=== PATIENT | female | born 1985 | race Caucasian/White ===

== ENCOUNTER 2016-12-17 05:11 | Inpatient (IN) ==
--- NOTE | 2016-12-17 05:22 | Emergency Department Note ---
Disposition Clinical Impression: Generalized seizure Disposition: Still a Patient Forms: ED Satisfaction Letter General Adult HPI - General Chief complaint: ED Seizure Stated complaint: seizure Time Seen by Provider: 12/17/16 05:17 Nursing Notes Reviewed: Yes Vital Signs Reviewed: Yes - History of Present Illness HPI Narrative: Patient being brought in by EMS for one episode of seizures at home. EMS states that when they got there she was slightly confused however she is mentating appropriately now. Patient is complaining of seizures. She states that she has been getting these daily. She does have a history of this that she sees a neurologist at [facility] for. She takes phenytoin as well as Keppra. She states she has been taking her medication as prescribed. She complains of a productive cough for 1 day as well as a fever while at home today. She is also complaining of right-sided low back pain. - Related Data Home Medications Medication Instructions Recorded Confirmed LevETIRAcetam [Keppra] 500 mg PO 08/04/15 Phenytoin ER [Dilantin] 200 mg PO BID 08/04/15 08/04/15 Previous Rx's Medication Instructions Recorded Cyclobenzaprine [Flexeril] 10 mg PO TID #15 tablet 08/04/15 Ibuprofen [Motrin] 600 mg PO TID PRN #30 tab 08/04/15 LevETIRAcetam [Keppra] 500 mg PO BID #30 tablet 07/27/16 Phenytoin [Dilantin] 200 mg PO Q12HR #60 tab.chew 07/27/16 Nitrofurantoin (BID) [Macrobid] 100 mg PO BID #10 capsule 08/11/16 Allergies Allergy/AdvReac Type Severity Reaction Status Date / Time No Known Allergies Allergy Verified 05/01/15 18:37 All systems ED: reviewed and negative except as stated. Constitutional: Reports: fever, chills ENT ED: Denies: congestion Cardiovascular: Denies: chest pain, palpitations, syncope Respiratory: Reports: cough (One-day), sputum production (Dark in color). Denies: dyspnea, wheezes Gastrointestinal: Denies: abdominal pain, nausea, vomiting, diarrhea, hematemesis, melena, hematochezia Genitourinary: Denies: urgency, dysuria, frequency, hematuria Musculoskeletal: Reports: back pain (right sided lower back pain). Denies: neck pain Integumentary: Denies: rash, abrasion Neurological: Reports: other (seizure). Denies: headache, weakness Past Medical History - Past Medical History Attestation: Yes The following information was validated with the patient. Medical history: Reports: seizures Surgical history: Reports: cholecystectomy, other Psychiatric history: Reports: no psych history - Social History Smoking Status: Former smoker Smokeless Tobacco Status: No Alcohol use: Reports: none Drug use: Reports: none Physical Exam - General Limitations: no limitations General appearance: alert, in no apparent distress - Head Head exam: atraumatic, normocephalic, normal inspection - Eye Eye exam: Present: normal appearance, PERRL, EOMI. Absent: scleral icterus, conjunctival injection - ENT ENT exam: normal exam, normal oropharynx, mucous membranes moist - Neck Neck exam: Present: normal inspection, full ROM, trachea midline. Absent: tenderness, meningismus, lymphadenopathy - Chest Chest inspection: Present: normal inspection, symmetric chest wall rise. Absent : tenderness - Respiratory Respiratory exam: Present: normal lung sounds bilaterally. Absent: respiratory distress, accessory muscle use - Cardiovascular Cardiovascular exam: Present: tachycardia, normal heart sounds - Abdominal Exam Abdominal exam: Present: soft, Non-Tender, normal bowel sounds. Absent: tenderness, distention, guarding, rebound, rigidity, organomegaly - Extremities Exam Extremities exam: Present: normal inspection, full ROM, normal capillary refill. Absent: tenderness, pedal edema - Back Exam Back exam: Present: normal inspection, full ROM, CVA tenderness (R), other. Absent: tenderness, CVA tenderness (L), muscle spasm - Neurological Exam Neurological exam: Present: alert, oriented X3 - Psychiatric Psychiatric exam: Present: normal affect, normal mood - Skin Skin exam: Present: warm, dry, intact, normal color. Absent: rash, cyanosis, diaphoresis Course Course Narrative: Female patient brought in by EMS for seizures. She had a seizure witnessed by people at the house. They state that she was jerking all over. It is approximately 6 minutes long according to the people at the house. EMS state the patient was confused whenever they got there. They states stated that she came around very quickly though. She has not Had any complaints to them. EMS expressed concern about no one in the house knowing her name. They only were aware of her first name. They stated there were several lighters around her whenever she was found. Patient does have a history of seizures. She takes Keppra as well as phenytoin for this. She states she has been having breakthrough seizures daily due to his stressors in her life. She was recently hospitalized for seizures a week ago. She complains of being chilly at this time. She states she has had a cough for today with a dark colored sputum. She states she has also had a fever at home that she took medication for but did not relieve. She is nontoxic-appearing but she is tachycardic. She is febrile while here. Her lung sounds are grossly clear. Heart tones are normal. Abdomen is soft and nontender. She has no Kernig or Brudzinski sign. He has full range of motion of her neck. I do not believe she is midline and she menengisnic. She is nontoxic appearing. We will give patient fluid bolus for her tachycardia and treat her fever while she is here with Tylenol. We will do basic lab workup and get a chest x-ray. She denies a headache at this time. She denies any visual disturbances. She does complain of right-sided low back pain. - Reevaluation(s) Reevaluation #1: Pt boyfriend is at bedside. He is advising that the Pt has been sick for the past 3 days. She agrees with this at this time. She initially stated that she was only sick for 1 day. Pt story seems to be changing. SHe is denying any drug use however she did test positive for cocaine. She states she lives in a house that people frequently or doing drugs. She denies shooting up drugs however I do not believe her story is reliable enough to believe this. The boyfriend at bedside states that he has not seen her physically shoot up drugs but he does not know. Patient does not have meningitic signs. She does have right-sided CVA tenderness as well as a UTI. We will begin antibiotic treatment for the UTI. I am concerned for a possible epidural abscess. I do believe patient will need a lumbar puncture however I do not feel comfortable introducing a needle with a possible abscess currently. We will see patients back with IV contrast and get an MRI. This case will be signed out to Dr. salbador Bull. Time: 06:49 Vital Signs Temperature 103.1 F H 12/17/16 05:13 Pulse Rate 126 06/02/17 05:13 Respiratory Rate 18 12/17/16 05:13 Blood Pressure 102/64 12/17/16 05:13 O2 Sat by Pulse Oximetry 98 12/17/16 05:13 Temperature 99.1 F 12/17/16 06:47 Pulse Rate 108 12/17/16 06:47 Respiratory Rate 20 12/17/16 06:47 Blood Pressure 101/58 12/17/16 06:47 O2 Sat by Pulse Oximetry 98 12/17/16 06:47 Oxygen Delivery Oxygen Delivery Room Air Medical Decision Making - Medical Records Medical records reviewed: Yes I reviewed the patient's medical records. - Lab Data Lab results reviewed: Yes I reviewed the patient's lab results. Result diagrams: 12/17/16 06:07 12/17/16 06:07 Lab Results 12/17/16 12/17/16 12/17/16 Range/Units 06:07 06:07 06:07 WBC 15.9 H (4.3-11.1) K/mcL RBC 3.84 (3.82-4.97) M/mcL Hgb 10.0 L (11.5-15.4) g/dL Hct 30.5 L (35.3-44.9) % MCV 79.4 L (83.0-100.0) fL MCH 26.0 L (28.0-33.3) pg MCHC 32.8 (31.6-35.5) g/dL RDW 17.7 H (11.5-14.5) % Plt Count 285 (140-400) K/mcL MPV 8.5 L (9.4-12.4) fL Seg Neutrophils % 78.0 % Band Neutrophils % 16.0 H (0-4) % Lymphocytes % 4.0 % Monocytes % 2.0 % Neutrophils # 15.0 H (1.6-8.9) K/mcL Lymphocytes # 0.6 (0.6-4.6) K/mcL Monocytes # 0.3 (0.0-1.3) K/mcL Platelet Estimate Normal (Normal) Sodium 137 (136-145) mEq/L Potassium 3.5 (3.5-4.5) mEq/L Chloride 104 (98-109) mEq/L Carbon Dioxide 24 (19-29) mEq/L BUN 13 (7-20) mg/dL Creatinine 0.78 (0.57-1.11) mg/dL Est GFR ( Amer) > 60 (> 60) Est GFR (Non-Af Amer) > 60 (> 60) BUN/Creatinine Ratio 17 (6-26) Glucose 90 (70-99) mg/dL Calculated Osmolality 284 (280-300) Lactic Acid 2.9 H (0.5-2.2) mmol/L Calcium 7.9 L (8.6-10.8) mg/dL Phosphorus 2.6 (2.3-4.7) mg/dL Magnesium 1.2 L (1.6-2.6) mg/dL Total Bilirubin 0.7 (0.2-1.2) mg/dL Direct Bilirubin 0.5 (0.0-0.5) mg/dL Indirect Bilirubin 0.2 (0.0-1.2) mg/dL AST 56 H (5-34) Units/L ALT 49 (0-55) Units/L Alkaline Phosphatase 182 H (38-126) Units/L Serum Total Protein 6.3 (6.0-8.3) g/dL Albumin 2.9 L (3.5-5.0) g/dL Globulin 3.4 (2.4-3.5) g/dL Albumin/Globulin Ratio 0.9 L (1.1-2.2) Urine Color (Yellow) Urine Clarity (Clear) Urine pH (5.0-8.0) pH Units Ur Specific [place] (1.010-1.025) Urine Protein (Neg-Trace) mg/dL Urine Glucose (UA) (Normal) mg/dL Urine Ketones (Negative) mg/dL Urine Blood (Negative) Urine Nitrite (Negative) Urine Bilirubin (Negative) Urine Urobilinogen (Normal) mg/dL Ur Leukocyte Esterase (Negative) Urine Microscopic RBC (0-3) per hpf Urine Microscopic WBC (0-3) per hpf Ur Squamous Epith Cells (None-Few) per lpf Urine Bacteria (None-Few) per hpf Hyaline Casts (None-Few) per lpf Urine Yeast Ur Culture Indicated? (NO) Salicylates < 5.0 L (15-30) mg/dL Urine Opiates Screen (Hdldmf=263) ng/mL Acetaminophen < 1.0 L (10-30) mcg/mL Ur Barbiturates Screen (Mutwfj=248) ng/mL Phenytoin 7.7 L (10-20) mcg/mL Ur Phencyclidine Scrn (Cutoff=25) ng/mL Ur Amphetamines Screen (Ulolxs=0240) ng/mL U Benzodiazepines Scrn (Cswvwp=044) ng/mL Urine Cocaine Screen (Cutoff= 300) ng/mL U Marijuana (THC) Screen (Cutoff = 50) ng/mL Ethyl Alcohol < 10 (0-10) mg/dL 12/17/16 12/17/16 Range/Units 06:13 06:13 WBC (4.3-11.1) K/mcL RBC (3.82-4.97) M/mcL Hgb (11.5-15.4) g/dL Hct (35.3-44.9) % MCV (83.0-100.0) fL MCH (28.0-33.3) pg MCHC (31.6-35.5) g/dL RDW (11.5-14.5) % Plt Count (140-400) K/mcL MPV (9.4-12.4) fL Seg Neutrophils % % Band Neutrophils % (0-4) % Lymphocytes % % Monocytes % % Neutrophils # (1.6-8.9) K/mcL Lymphocytes # (0.6-4.6) K/mcL Monocytes # (0.0-1.3) K/mcL Platelet Estimate (Normal) Sodium (136-145) mEq/L Potassium (3.5-4.5) mEq/L Chloride (98-109) mEq/L Carbon Dioxide (19-29) mEq/L BUN (7-20) mg/dL Creatinine (0.57-1.11) mg/dL Est GFR ( Amer) (> 60) Est GFR (Non-Af Amer) (> 60) BUN/Creatinine Ratio (6-26) Glucose (70-99) mg/dL Calculated Osmolality (280-300) Lactic Acid (0.5-2.2) mmol/L Calcium (8.6-10.8) mg/dL Phosphorus (2.3-4.7) mg/dL Magnesium (1.6-2.6) mg/dL Total Bilirubin (0.2-1.2) mg/dL Direct Bilirubin (0.0-0.5) mg/dL Indirect Bilirubin (0.0-1.2) mg/dL AST (5-34) Units/L ALT (0-55) Units/L Alkaline Phosphatase (38-126) Units/L Serum Total Protein (6.0-8.3) g/dL Albumin (3.5-5.0) g/dL Globulin (2.4-3.5) g/dL Albumin/Globulin Ratio (1.1-2.2) Urine Color Yellow (Yellow) Urine Clarity Turbid A (Clear) Urine pH 6.5 (5.0-8.0) pH Units Ur Specific [place] 1.012 (1.010-1.025) Urine Protein Trace (Neg-Trace) mg/dL Urine Glucose (UA) Normal (Normal) mg/dL Urine Ketones Negative (Negative) mg/dL Urine Blood Negative (Negative) Urine Nitrite Positive A (Negative) Urine Bilirubin Negative (Negative) Urine Urobilinogen Normal (Normal) mg/dL Ur Leukocyte Esterase Moderate H (Negative) Urine Microscopic RBC 0-3 (0-3) per hpf Urine Microscopic WBC 50-100 H (0-3) per hpf Ur Squamous Epith Cells Many H (None-Few) per lpf Urine Bacteria Many H (None-Few) per hpf Hyaline Casts Few (None-Few) per lpf Urine Yeast Test Not Performed Ur Culture Indicated? YES A (NO) Salicylates (15-30) mg/dL Urine Opiates Screen Negative (Wuimkh=313) ng/mL Acetaminophen (10-30) mcg/mL Ur Barbiturates Screen Negative (Hdupdw=630) ng/mL Phenytoin (10-20) mcg/mL Ur Phencyclidine Scrn Negative (Cutoff=25) ng/mL Ur Amphetamines Screen Negative (Ppwwqg=9362) ng/mL U Benzodiazepines Scrn Negative (Udsgkk=026) ng/mL Urine Cocaine Screen Positive H (Cutoff= 300) ng/mL U Marijuana (THC) Screen Negative (Cutoff = 50) ng/mL Ethyl Alcohol (0-10) mg/dL - Radiology Data Radiology results reviewed: Yes I reviewed the patient's radiology results. Chest X-Ray 12/17/16 05:19 IMPRESSION: No acute disease. D/ / Juan R Hanson MD / Juan R Hanson MD Interpreting Provider: Juan R Hanson MD Head CT 12/17/16 05:33 IMPRESSION: No acute intracranial abnormality. D/ / Andrea Salazar MD / Andrea Salazar MD Interpreting Provider: Andrea Salazar MD - EKG Data EKG #1 EKG attestation: Yes I reviewed and interpreted this EKG. EKG results narrative: Sinus tachycardia at a rate of 119. UT interval is 122. QRS duration is 74. QT is 278. QTC is 349. No signs of acute ischemia. No significant changes from previous EKG dated 05/01/2015.
[2016-12-17] MEDS: 0.9 % Sodium Chloride 1,000 ML IVC SCH ×4 (05:28→21:09)
[2016-12-17] MEDS ORDERED: *HR* LORazepam 2 MG/ML VIAL IVP STA (05:37)
[2016-12-17 06:17] LABS: Hematocrit 30.5 % (35.3-44.9); Mean Corpuscular HGB Conc 32.8 g/dL (31.6-35.5); Mean Corpuscular Volume 79.4 fL (83.0-100.0); Mean Platelet Volume 8.5 fL (9.4-12.4); Platelet Count 285 K/mcL (140-400); Red Blood Count 3.84 M/mcL (3.82-4.97); Red Cell Distribution Width 17.7 % (11.5-14.5)
[2016-12-17 06:24] LABS: Bilirubin,Urine Negative (Negative); Blood,Urine Negative (Negative); Clarity,Urine Turbid (Clear); Color,Urine Yellow (Yellow); Glucose,Urine (UA) Normal (Normal); Ketones,Urine Negative (Negative); Leukocyte Esterase,Urine Moderate (Negative); Nitrite,Urine Positive (Negative); PH,Urine 6.5 pH Units (5.0-8.0); Protein,Urine Trace mg/dL (Neg-Trace); Specific Gravity,Urine 1.012 (1.010-1.025); Urobilinogen,Urine Normal (Normal)
[2016-12-17 06:27] LABS: Bacteria,Urine Many per hpf (None-Few); Hyaline Casts,Urine Few per lpf (None-Few); RBC,Urine 0-3 per hpf (0-3); Squamous Epithelial Cell,Urine Many per lpf (None-Few); WBC,Urine 50-100 per hpf (0-3)
[2016-12-17 06:28] LABS: Amphetamine Screen,Urine Negative ng/mL (Cutoff=1000); Barbiturate Screen,Urine Negative ng/mL (Cutoff=200); Benzodiazepines Screen,Urine Negative ng/mL (Cutoff=200); Cannabinoid Screen,Urine Negative ng/mL (Cutoff = 50); Cocaine Screen,Urine Positive ng/mL (Cutoff= 300); Opiate Screen,Urine Negative ng/mL (Cutoff=300); Phencyclidine Screen,Urine Negative ng/mL (Cutoff=25)
[2016-12-17 06:32] LABS: Alanine Aminotransferase 49 Units/L (0-55); Albumin 2.9 g/dL (3.5-5.0); Albumin/Globulin Ratio 0.9 (1.1-2.2); Alkaline Phosphatase 182 Units/L (38-126); Aspartate Amino Transferase 56 Units/L (5-34); BUN/Creatinine Ratio 17 (6-26); Bilirubin,Direct 0.5 mg/dL (0.0-0.5); Bilirubin,Indirect 0.2 mg/dL (0.0-1.2); Bilirubin,Total 0.7 mg/dL (0.2-1.2); Blood Urea Nitrogen 13 mg/dL (7-20); Calcium 7.9 mg/dL (8.6-10.8); Carbon Dioxide 24 mEq/L (19-29); Chloride 104 mEq/L (98-109); Globulin 3.4 g/dL (2.4-3.5); Glucose 90 mg/dL (70-99); Magnesium 1.2 mg/dL (1.6-2.6); Osmolality,Calculated 284 (280-300); Phosphorous 2.6 mg/dL (2.3-4.7); Potassium 3.5 mEq/L (3.5-4.5); Sodium 137 mEq/L (136-145); Total Protein 6.3 g/dL (6.0-8.3); eGFR For African Americans > 60 (> 60); eGFR For Non-African Americans > 60 (> 60)
[2016-12-17 06:34] LABS: Acetaminophen < 1.0 mcg/mL (10-30); Ethanol < 10 mg/dL (0-10); Salicylate < 5.0 mg/dL (15-30)
[2016-12-17 06:39] LABS: Phenytoin (Dilantin) 7.7 mcg/mL (10-20)
[2016-12-17 06:41] LABS: Lymphocytes # 0.6 K/mcL (0.6-4.6); Monocytes # 0.3 K/mcL (0.0-1.3); Platelet Estimate Normal (Normal)
--- NOTE | 2016-12-17 06:48 | Emergency Department Note ---
Disposition Forms: ED Satisfaction Letter General Adult HPI - General Chief complaint: ED Seizure Stated complaint: seizure Time Seen by Provider: 12/17/16 05:17 Source: family, EMS - History of Present Illness Pain Scale: 0 - Related Data Home Medications Medication Instructions Recorded Confirmed LevETIRAcetam [Keppra] 500 mg PO 08/04/15 Phenytoin ER [Dilantin] 200 mg PO BID 08/04/15 08/04/15 Previous Rx's Medication Instructions Recorded Cyclobenzaprine [Flexeril] 10 mg PO TID #15 tablet 08/04/15 Ibuprofen [Motrin] 600 mg PO TID PRN #30 tab 08/04/15 LevETIRAcetam [Keppra] 500 mg PO BID #30 tablet 07/27/16 Phenytoin [Dilantin] 200 mg PO Q12HR #60 tab.chew 07/27/16 Nitrofurantoin (BID) [Macrobid] 100 mg PO BID #10 capsule 08/11/16 Allergies Allergy/AdvReac Type Severity Reaction Status Date / Time No Known Allergies Allergy Verified 05/01/15 18:37 Past Medical History - Past Medical History Medical history: Reports: seizures Surgical history: Reports: cholecystectomy, other Psychiatric history: Reports: no psych history - Social History Smoking Status: Former smoker Smokeless Tobacco Status: No Alcohol use: Reports: none Drug use: Reports: none Physical Exam - General General appearance: alert, in no apparent distress Course Course Narrative: Patient being brought in by EMS for one episode of seizures at home. EMS states that when they got there she was slightly confused however she is mentating appropriately now. Patient is complaining of seizures. She states that she has been getting these daily. She does have a history of this that she sees a neurologist at [facility] for. She takes phenytoin as well as Keppra. She states she has been taking her medication as prescribed. She complains of a productive cough for 1 day as well as a fever while at home today. She is also complaining of right-sided low back pain. Vital Signs Temperature 103.1 F H 12/17/16 05:13 Pulse Rate 126 12/17/16 05:13 Respiratory Rate 18 12/17/16 05:13 Blood Pressure 102/64 12/17/16 05:13 O2 Sat by Pulse Oximetry 98 12/17/16 05:13 Temperature 103.1 F H 12/17/16 05:13 Pulse Rate 104 12/17/16 06:35 Respiratory Rate 14 12/17/16 06:35 Blood Pressure 91/54 12/17/16 06:35 O2 Sat by Pulse Oximetry 97 12/17/16 06:35 Oxygen Delivery Oxygen Delivery Room Air Medical Decision Making - Lab Data Result diagrams: 12/17/16 06:07 12/17/16 06:07 Lab Results 12/17/16 12/17/16 12/17/16 Range/Units 06:07 06:07 06:07 WBC 15.9 H (4.3-11.1) K/mcL RBC 3.84 (3.82-4.97) M/mcL Hgb 10.0 L (11.5-15.4) g/dL Hct 30.5 L (35.3-44.9) % MCV 79.4 L (83.0-100.0) fL MCH 26.0 L (28.0-33.3) pg MCHC 32.8 (31.6-35.5) g/dL RDW 17.7 H (11.5-14.5) % Plt Count 285 (140-400) K/mcL MPV 8.5 L (9.4-12.4) fL Seg Neutrophils % 78.0 % Band Neutrophils % 16.0 H (0-4) % Lymphocytes % 4.0 % Monocytes % 2.0 % Neutrophils # 15.0 H (1.6-8.9) K/mcL Lymphocytes # 0.6 (0.6-4.6) K/mcL Monocytes # 0.3 (0.0-1.3) K/mcL Platelet Estimate Normal (Normal) Sodium 137 (136-145) mEq/L Potassium 3.5 (3.5-4.5) mEq/L Chloride 104 (98-109) mEq/L Carbon Dioxide 24 (19-29) mEq/L BUN 13 (7-20) mg/dL Creatinine 0.78 (0.57-1.11) mg/dL Est GFR ( Amer) > 60 (> 60) Est GFR (Non-Af Amer) > 60 (> 60) BUN/Creatinine Ratio 17 (6-26) Glucose 90 (70-99) mg/dL Calculated Osmolality 284 (280-300) Lactic Acid 2.9 H (0.5-2.2) mmol/L Calcium 7.9 L (8.6-10.8) mg/dL Phosphorus 2.6 (2.3-4.7) mg/dL Magnesium 1.2 L (1.6-2.6) mg/dL Total Bilirubin 0.7 (0.2-1.2) mg/dL Direct Bilirubin 0.5 (0.0-0.5) mg/dL Indirect Bilirubin 0.2 (0.0-1.2) mg/dL AST 56 H (5-34) Units/L ALT 49 (0-55) Units/L Alkaline Phosphatase 182 H (38-126) Units/L Serum Total Protein 6.3 (6.0-8.3) g/dL Albumin 2.9 L (3.5-5.0) g/dL Globulin 3.4 (2.4-3.5) g/dL Albumin/Globulin Ratio 0.9 L (1.1-2.2) Urine Color (Yellow) Urine Clarity (Clear) Urine pH (5.0-8.0) pH Units Ur Specific [place] (1.010-1.025) Urine Protein (Neg-Trace) mg/dL Urine Glucose (UA) (Normal) mg/dL Urine Ketones (Negative) mg/dL Urine Blood (Negative) Urine Nitrite (Negative) Urine Bilirubin (Negative) Urine Urobilinogen (Normal) mg/dL Ur Leukocyte Esterase (Negative) Urine Microscopic RBC (0-3) per hpf Urine Microscopic WBC (0-3) per hpf Ur Squamous Epith Cells (None-Few) per lpf Urine Bacteria (None-Few) per hpf Hyaline Casts (None-Few) per lpf Urine Yeast Ur Culture Indicated? (NO) Salicylates < 5.0 L (15-30) mg/dL Urine Opiates Screen (Jzsxgc=423) ng/mL Acetaminophen < 1.0 L (10-30) mcg/mL Ur Barbiturates Screen (Unkowj=894) ng/mL Phenytoin 7.7 L (10-20) mcg/mL Ur Phencyclidine Scrn (Cutoff=25) ng/mL Ur Amphetamines Screen (Gxblcv=9351) ng/mL U Benzodiazepines Scrn (Yzuith=042) ng/mL Urine Cocaine Screen (Cutoff= 300) ng/mL U Marijuana (THC) Screen (Cutoff = 50) ng/mL Ethyl Alcohol < 10 (0-10) mg/dL 12/17/16 12/17/16 Range/Units 06:13 06:13 WBC (4.3-11.1) K/mcL RBC (3.82-4.97) M/mcL Hgb (11.5-15.4) g/dL Hct (35.3-44.9) % MCV (83.0-100.0) fL MCH (28.0-33.3) pg MCHC (31.6-35.5) g/dL RDW (11.5-14.5) % Plt Count (140-400) K/mcL MPV (9.4-12.4) fL Seg Neutrophils % % Band Neutrophils % (0-4) % Lymphocytes % % Monocytes % % Neutrophils # (1.6-8.9) K/mcL Lymphocytes # (0.6-4.6) K/mcL Monocytes # (0.0-1.3) K/mcL Platelet Estimate (Normal) Sodium (136-145) mEq/L Potassium (3.5-4.5) mEq/L Chloride (98-109) mEq/L Carbon Dioxide (19-29) mEq/L BUN (7-20) mg/dL Creatinine (0.57-1.11) mg/dL Est GFR ( Amer) (> 60) Est GFR (Non-Af Amer) (> 60) BUN/Creatinine Ratio (6-26) Glucose (70-99) mg/dL Calculated Osmolality (280-300) Lactic Acid (0.5-2.2) mmol/L Calcium (8.6-10.8) mg/dL Phosphorus (2.3-4.7) mg/dL Magnesium (1.6-2.6) mg/dL Total Bilirubin (0.2-1.2) mg/dL Direct Bilirubin (0.0-0.5) mg/dL Indirect Bilirubin (0.0-1.2) mg/dL AST (5-34) Units/L ALT (0-55) Units/L Alkaline Phosphatase (38-126) Units/L Serum Total Protein (6.0-8.3) g/dL Albumin (3.5-5.0) g/dL Globulin (2.4-3.5) g/dL Albumin/Globulin Ratio (1.1-2.2) Urine Color Yellow (Yellow) Urine Clarity Turbid A (Clear) Urine pH 6.5 (5.0-8.0) pH Units Ur Specific [place] 1.012 (1.010-1.025) Urine Protein Trace (Neg-Trace) mg/dL Urine Glucose (UA) Normal (Normal) mg/dL Urine Ketones Negative (Negative) mg/dL Urine Blood Negative (Negative) Urine Nitrite Positive A (Negative) Urine Bilirubin Negative (Negative) Urine Urobilinogen Normal (Normal) mg/dL Ur Leukocyte Esterase Moderate H (Negative) Urine Microscopic RBC 0-3 (0-3) per hpf Urine Microscopic WBC 50-100 H (0-3) per hpf Ur Squamous Epith Cells Many H (None-Few) per lpf Urine Bacteria Many H (None-Few) per hpf Hyaline Casts Few (None-Few) per lpf Urine Yeast Test Not Performed Ur Culture Indicated? YES A (NO) Salicylates (15-30) mg/dL Urine Opiates Screen Negative (Ftydho=332) ng/mL Acetaminophen (10-30) mcg/mL Ur Barbiturates Screen Negative (Qgnfez=561) ng/mL Phenytoin (10-20) mcg/mL Ur Phencyclidine Scrn Negative (Cutoff=25) ng/mL Ur Amphetamines Screen Negative (Coahuv=7598) ng/mL U Benzodiazepines Scrn Negative (Mcdkdc=890) ng/mL Urine Cocaine Screen Positive H (Cutoff= 300) ng/mL U Marijuana (THC) Screen Negative (Cutoff = 50) ng/mL Ethyl Alcohol (0-10) mg/dL
--- NOTE | 2016-12-17 06:52 | Emergency Department Note ---
START Narrative - START START: I examined this patient and my medical decision-making was reviewed with the Resident Physician. I agree with the documented findings, disposition and treatment plan as described except to the extent set forth below. Patient with frequent breakthrough seizures who had a seizure this morning. Arrives febrile, tachycardic. Complains of headache that she has had for the last few days, and pain in the center of her neck. Denies vomiting. Neck is supple without meningismus, but she does complain of some pain in the center of her neck with neck flexion. No focal neurologic deficit. Pupils are normal. The patient denies any drug use to me, denies IV drug use or cocaine use. When confronted with the positive cocaine result on her urine drug screen, continues to deny any cocaine use. She is an unreliable historian. Her urine is infected and she has right CVA tenderness, pyelonephritis certainly could explain her picture of sepsis. However, it would not explain her headache, neck pain or midline back pain that she is complaining of. I cannot trust her history of no IV drug use. She has no distal neurologic symptoms, but before I consider lumbar puncture, an epidural abscess would need to be ruled out. MRI is being ordered. 2 g of IV Rocephin has been ordered. Patient will be checked out to Drs. Bull and Víctor at change of shift.
[2016-12-17] MEDS ORDERED: 0.9 % Sodium Chloride 1,000 ML ONE (08:04)
[2016-12-17] MEDS ORDERED: 0.9 % Sodium Chloride 1,000 ML IVC ONE ×3 (08:24→16:01)
[2016-12-17] MEDS ORDERED: Phenytoin 500 MG in SYRINGE 1 EACH IVPB ONE (08:55)
--- NOTE | 2016-12-17 09:21 | Emergency Department Note ---
START Narrative - START START: I examined this patient and my medical decision-making was reviewed with the ENGRAVER BLOCK/PA/Advanced Practice Nurse/Resident Physician. I agree with the documented findings, disposition and treatment plan as described except to the extent set forth below. Patient emergency department after a seizure. Signed out pending MRIs. MRI unable to perform until they received the information [place] on her vagal nerve stimulator. Patient with significant UTI and likely has pyelonephritis. Her blood pressure is now low. Patient likely with UTI/sepsis. We will start him on pressors. We will admit pending MRI. Unable to locate information regarding her vagal nerve stimulator. Patient had a CT of the spine with IV contrast which shows no obvious abscesses. I believe her symptoms are from pyelonephritis with sepsis. She is admitted to ICU. 30 minutes of critical care exclusive of separately billable procedures.
[2016-12-17] MEDS ORDERED: Norepinephrine 4 MG in D5% in Water 250 ML IVC SCH (09:30)
--- NOTE | 2016-12-17 10:28 | Emergency Department Note ---
Disposition Clinical Impression: Generalized seizure Urinary tract infection Qualifiers: Urinary tract infection type: site unspecified Hematuria presence: with hematuria Qualified Code(s): N39.0 - Urinary tract infection, site not specified ; R31.9 - Hematuria, unspecified Sepsis Qualifiers: Sepsis type: sepsis due to unspecified organism Qualified Code(s): A41.9 - Sepsis, unspecified organism Disposition: Admitted As Inpatient Condition: Serious General Adult HPI - General Chief complaint: ED Seizure Stated complaint: seizure Time Seen by Provider: 12/17/16 05:17 Source: family, EMS Limitations: no limitations - History of Present Illness Pain Scale: 0 - Related Data Home Medications Medication Instructions Recorded Confirmed Phenytoin ER [Dilantin] 300 mg PO BID 08/04/15 12/17/16 Buprenorphine HCl/Naloxone HCl 2 tab SL DAILY 12/17/16 12/17/16 [Buprenorphin-Naloxon 8-2 mg Sl] clonazePAM [Klonopin] 2 mg PO BID PRN 12/17/16 12/17/16 Previous Rx's Medication Instructions Recorded LevETIRAcetam [Keppra] 500 mg PO BID #30 tablet 07/27/16 Allergies Allergy/AdvReac Type Severity Reaction Status Date / Time No Known Allergies Allergy Verified 05/01/15 18:37 Constitutional: Reports: fever, chills ENT ED: Denies: congestion Cardiovascular: Denies: chest pain, palpitations, syncope Respiratory: Reports: cough (One-day), sputum production (Dark in color). Denies: dyspnea, wheezes Gastrointestinal: Denies: abdominal pain, nausea, vomiting, diarrhea, hematemesis, melena, hematochezia Genitourinary: Denies: urgency, dysuria, frequency, hematuria Musculoskeletal: Reports: back pain (right sided lower back pain). Denies: neck pain Integumentary: Denies: rash, abrasion Neurological: Reports: other (seizure). Denies: headache, weakness Past Medical History - Past Medical History Medical history: Reports: seizures Surgical history: Reports: cholecystectomy, other Psychiatric history: Reports: no psych history - Social History Smoking Status: Former smoker Smokeless Tobacco Status: No Alcohol use: Reports: none Drug use: Reports: none Physical Exam General appearance: NAD, conversant Eyes: anicteric sclerae, moist conjunctivae; PERRL HENT: Atraumatic; oropharynx clear with moist mucous membranes and no mucosal ulcerations Neck: Normal inspection; Trachea midline; FROM, supple Lungs: CTA, with normal respiratory effort and no intercostal retractions CV: RRR, no MRGs Abdomen: Soft, non-tender; no rebound or gaurding Extremities: No peripheral edema or extremity lymphadenopathy Skin: Normal temperature; no rash, ulcers or lesions Psych: Appropriate mood and affect Neuro: alert and oriented to person, place and time; answering all questions appropriately. Moving neck without difficulty. Looks behind her to see monitor and blood pressure without difficulty. Moves all extremities without difficulty or deficit. - General Limitations: no limitations General appearance: alert, in no apparent distress Course - Reevaluation(s) Reevaluation #1: Patient taken over from signout from Dr. Capellan. Patient's received 2 L of fluid with light pressure systolically of 85 and a map of low 60s. Patient will receive continued fluids as well as continued workup in regards to possible polynephritis and epidural abscess. Blood cultures are pending and ceftriaxone 2 g has already been administered. The patient received her fourth liter with continued low systolic pressures including blood pressures with a systolic of 60 and maps of 42. The patient refused central line in the internal jugular vein. Patient agrees to central line in the right femoral vein. Line placed per procedure note without difficulty or complication. 16 cm secondary to initial set up for IJ. Levothyroid will be started. We will continue fluids. We will continue to monitor urine output and overall perfusion status. CT of the abdomen does not show any overt pyelonephritis. Patient's previous urine cultures sensitive to ceftriaxone. We will discuss the ICU team for further care. - Consultations Consultation #1: Discussed with Dr. Browning. Due to the initial concern and ordering of MRI to rule out abscess and infection the patient should undergo further imaging prior to admission to the ICU secondary to this possibly require her to be transferred. Multiple attempts were tried to get information regarding for her stimulator. [facility] has no information regarding the actual type of stimulator. It was not placed at their facility. Patient has no recollection of other hospital but this was placed. Family members are also helpful in regards to this information. In discussion with ICU exhaust emissions inspector patient underwent CT scan of the cervical thoracic and lumbar spine to further evaluate for infection. CTs negative for abscess, osteomyelitis, discitis. Patient was officially accepted to the ICU for further management. During her stay and sorting through the MRIs and CT scan. The patient was treated with vancomycin and ceftriaxone empirically. The patient has continued to improve throughout her stay in the emergency department. Her mean arterial pressure remains in the mid 60s on 2 mics of levofed. Patient remained stable with increasing urine output. Patient will be transferred to the ICU for further monitoring as well as treatment and follow-up of cultures. Vital Signs Temperature 103.1 F H 12/17/16 05:13 Pulse Rate 126 12/17/16 05:13 Respiratory Rate 18 12/17/16 05:13 Blood Pressure 102/64 12/17/16 05:13 O2 Sat by Pulse Oximetry 98 12/17/16 05:13 Temperature 99.6 F 12/17/16 13:45 Pulse Rate 80 12/17/16 14:06 Respiratory Rate 18 12/17/16 13:45 Blood Pressure 92/51 12/17/16 13:45 O2 Sat by Pulse Oximetry 97 12/17/16 14:06 Oxygen Delivery Oxygen Delivery Room Air Procedures - Central Line Placement Right Femoral Central Line Inserted*: Yes Central Line Catheter Replacement*: Yes Central Line Insertion: emergent Consent Obtained: verbal consent Procedural Pause: verify patient name and date of , timeout performed per policy, britany and assess the site, assemble equipment and verify supplies, perform hand hygiene During the Procedure: clinician is wearing sterile gloves, cap, mask,& gown during insertion, sterile field and sterile technique are maintained, patient's face is covered with drape or mask and wearing a cap, everyone in room is wearing a mask Prep the Procedure Site: apply chloraprep to the skin using a back and forth scrubbing motion, apply chloraprep for 30 seconds (upper body), 1-2 min ( femoral sites), allow prep to dry, drape the patient with a full body drape Local Anesthetic: lidocaine 1% Amount of anesthesia used (mL): 3 Ultrasound Used for Placement: Yes Central Line Lumen Inserted: triple (16cm) Post Procedure: sutured in place, good blood return, all ports aspirated, flushed, capped, sterile dressing applied, guide wire removed and visualized, dressing is dated Post Procedure X-Ray: tip of catheter in good position Patient Tolerated Procedure: well, no complications Medical Decision Making - Lab Data Result diagrams: 12/17/16 06:07 12/17/16 06:07 Lab Results 12/17/16 12/17/16 12/17/16 Range/Units 06:07 06:07 06:07 WBC 15.9 H (4.3-11.1) K/mcL RBC 3.84 (3.82-4.97) M/mcL Hgb 10.0 L (11.5-15.4) g/dL Hct 30.5 L (35.3-44.9) % MCV 79.4 L (83.0-100.0) fL MCH 26.0 L (28.0-33.3) pg MCHC 32.8 (31.6-35.5) g/dL RDW 17.7 H (11.5-14.5) % Plt Count 285 (140-400) K/mcL MPV 8.5 L (9.4-12.4) fL Seg Neutrophils % 78.0 % Band Neutrophils % 16.0 H (0-4) % Lymphocytes % 4.0 % Monocytes % 2.0 % Neutrophils # 15.0 H (1.6-8.9) K/mcL Lymphocytes # 0.6 (0.6-4.6) K/mcL Monocytes # 0.3 (0.0-1.3) K/mcL Platelet Estimate Normal (Normal) Sodium 137 (136-145) mEq/L Potassium 3.5 (3.5-4.5) mEq/L Chloride 104 (98-109) mEq/L Carbon Dioxide 24 (19-29) mEq/L BUN 13 (7-20) mg/dL Creatinine 0.78 (0.57-1.11) mg/dL Est GFR ( Amer) > 60 (> 60) Est GFR (Non-Af Amer) > 60 (> 60) BUN/Creatinine Ratio 17 (6-26) Glucose 90 (70-99) mg/dL POC Glucose (58-89) Calculated Osmolality 284 (280-300) Lactic Acid 2.9 H (0.5-2.2) mmol/L Calcium 7.9 L (8.6-10.8) mg/dL Phosphorus 2.6 (2.3-4.7) mg/dL Magnesium 1.2 L (1.6-2.6) mg/dL Total Bilirubin 0.7 (0.2-1.2) mg/dL Direct Bilirubin 0.5 (0.0-0.5) mg/dL Indirect Bilirubin 0.2 (0.0-1.2) mg/dL AST 56 H (5-34) Units/L ALT 49 (0-55) Units/L Alkaline Phosphatase 182 H (38-126) Units/L Serum Total Protein 6.3 (6.0-8.3) g/dL Albumin 2.9 L (3.5-5.0) g/dL Globulin 3.4 (2.4-3.5) g/dL Albumin/Globulin Ratio 0.9 L (1.1-2.2) Urine Color (Yellow) Urine Clarity (Clear) Urine pH (5.0-8.0) pH Units Ur Specific [place] (1.010-1.025) Urine Protein (Neg-Trace) mg/dL Urine Glucose (UA) (Normal) mg/dL Urine Ketones (Negative) mg/dL Urine Blood (Negative) Urine Nitrite (Negative) Urine Bilirubin (Negative) Urine Urobilinogen (Normal) mg/dL Ur Leukocyte Esterase (Negative) Urine Microscopic RBC (0-3) per hpf Urine Microscopic WBC (0-3) per hpf Ur Squamous Epith Cells (None-Few) per lpf Urine Bacteria (None-Few) per hpf Hyaline Casts (None-Few) per lpf Urine Yeast Ur Culture Indicated? (NO) Salicylates < 5.0 L (15-30) mg/dL Urine Opiates Screen (Utydjj=499) ng/mL Acetaminophen < 1.0 L (10-30) mcg/mL Ur Barbiturates Screen (Dgduci=631) ng/mL Phenytoin 7.7 L (10-20) mcg/mL Ur Phencyclidine Scrn (Cutoff=25) ng/mL Ur Amphetamines Screen (Rjmmvj=1846) ng/mL U Benzodiazepines Scrn (Wvlxtc=158) ng/mL Urine Cocaine Screen (Cutoff= 300) ng/mL U Marijuana (THC) Screen (Cutoff = 50) ng/mL Ethyl Alcohol < 10 (0-10) mg/dL 12/17/16 12/17/16 12/17/16 Range/Units 06:13 06:13 07:04 WBC (4.3-11.1) K/mcL RBC (3.82-4.97) M/mcL Hgb (11.5-15.4) g/dL Hct (35.3-44.9) % MCV (83.0-100.0) fL MCH (28.0-33.3) pg MCHC (31.6-35.5) g/dL RDW (11.5-14.5) % Plt Count (140-400) K/mcL MPV (9.4-12.4) fL Seg Neutrophils % % Band Neutrophils % (0-4) % Lymphocytes % % Monocytes % % Neutrophils # (1.6-8.9) K/mcL Lymphocytes # (0.6-4.6) K/mcL Monocytes # (0.0-1.3) K/mcL Platelet Estimate (Normal) Sodium (136-145) mEq/L Potassium (3.5-4.5) mEq/L Chloride (98-109) mEq/L Carbon Dioxide (19-29) mEq/L BUN (7-20) mg/dL Creatinine (0.57-1.11) mg/dL Est GFR ( Amer) (> 60) Est GFR (Non-Af Amer) (> 60) BUN/Creatinine Ratio (6-26) Glucose (70-99) mg/dL POC Glucose (58-89) Calculated Osmolality (280-300) Lactic Acid 1.4 (0.5-2.2) mmol/L Calcium (8.6-10.8) mg/dL Phosphorus (2.3-4.7) mg/dL Magnesium (1.6-2.6) mg/dL Total Bilirubin (0.2-1.2) mg/dL Direct Bilirubin (0.0-0.5) mg/dL Indirect Bilirubin (0.0-1.2) mg/dL AST (5-34) Units/L ALT (0-55) Units/L Alkaline Phosphatase (38-126) Units/L Serum Total Protein (6.0-8.3) g/dL Albumin (3.5-5.0) g/dL Globulin (2.4-3.5) g/dL Albumin/Globulin Ratio (1.1-2.2) Urine Color Yellow (Yellow) Urine Clarity Turbid A (Clear) Urine pH 6.5 (5.0-8.0) pH Units Ur Specific [place] 1.012 (1.010-1.025) Urine Protein Trace (Neg-Trace) mg/dL Urine Glucose (UA) Normal (Normal) mg/dL Urine Ketones Negative (Negative) mg/dL Urine Blood Negative (Negative) Urine Nitrite Positive A (Negative) Urine Bilirubin Negative (Negative) Urine Urobilinogen Normal (Normal) mg/dL Ur Leukocyte Esterase Moderate H (Negative) Urine Microscopic RBC 0-3 (0-3) per hpf Urine Microscopic WBC 50-100 H (0-3) per hpf Ur Squamous Epith Cells Many H (None-Few) per lpf Urine Bacteria Many H (None-Few) per hpf Hyaline Casts Few (None-Few) per lpf Urine Yeast Test Not Performed Ur Culture Indicated? YES A (NO) Salicylates (15-30) mg/dL Urine Opiates Screen Negative (Nwilht=927) ng/mL Acetaminophen (10-30) mcg/mL Ur Barbiturates Screen Negative (Iyaivw=906) ng/mL Phenytoin (10-20) mcg/mL Ur Phencyclidine Scrn Negative (Cutoff=25) ng/mL Ur Amphetamines Screen Negative (Oyuumj=3456) ng/mL U Benzodiazepines Scrn Negative (Lewvxv=611) ng/mL Urine Cocaine Screen Positive H (Cutoff= 300) ng/mL U Marijuana (THC) Screen Negative (Cutoff = 50) ng/mL Ethyl Alcohol (0-10) mg/dL 12/17/16 Range/Units 14:01 WBC (4.3-11.1) K/mcL RBC (3.82-4.97) M/mcL Hgb (11.5-15.4) g/dL Hct (35.3-44.9) % MCV (83.0-100.0) fL MCH (28.0-33.3) pg MCHC (31.6-35.5) g/dL RDW (11.5-14.5) % Plt Count (140-400) K/mcL MPV (9.4-12.4) fL Seg Neutrophils % % Band Neutrophils % (0-4) % Lymphocytes % % Monocytes % % Neutrophils # (1.6-8.9) K/mcL Lymphocytes # (0.6-4.6) K/mcL Monocytes # (0.0-1.3) K/mcL Platelet Estimate (Normal) Sodium (136-145) mEq/L Potassium (3.5-4.5) mEq/L Chloride (98-109) mEq/L Carbon Dioxide (19-29) mEq/L BUN (7-20) mg/dL Creatinine (0.57-1.11) mg/dL Est GFR ( Amer) (> 60) Est GFR (Non-Af Amer) (> 60) BUN/Creatinine Ratio (6-26) Glucose (70-99) mg/dL POC Glucose 125 H (58-89) Calculated Osmolality (280-300) Lactic Acid (0.5-2.2) mmol/L Calcium (8.6-10.8) mg/dL Phosphorus (2.3-4.7) mg/dL Magnesium (1.6-2.6) mg/dL Total Bilirubin (0.2-1.2) mg/dL Direct Bilirubin (0.0-0.5) mg/dL Indirect Bilirubin (0.0-1.2) mg/dL AST (5-34) Units/L ALT (0-55) Units/L Alkaline Phosphatase (38-126) Units/L Serum Total Protein (6.0-8.3) g/dL Albumin (3.5-5.0) g/dL Globulin (2.4-3.5) g/dL Albumin/Globulin Ratio (1.1-2.2) Urine Color (Yellow) Urine Clarity (Clear) Urine pH (5.0-8.0) pH Units Ur Specific [place] (1.010-1.025) Urine Protein (Neg-Trace) mg/dL Urine Glucose (UA) (Normal) mg/dL Urine Ketones (Negative) mg/dL Urine Blood (Negative) Urine Nitrite (Negative) Urine Bilirubin (Negative) Urine Urobilinogen (Normal) mg/dL Ur Leukocyte Esterase (Negative) Urine Microscopic RBC (0-3) per hpf Urine Microscopic WBC (0-3) per hpf Ur Squamous Epith Cells (None-Few) per lpf Urine Bacteria (None-Few) per hpf Hyaline Casts (None-Few) per lpf Urine Yeast Ur Culture Indicated? (NO) Salicylates (15-30) mg/dL Urine Opiates Screen (Hrodbf=224) ng/mL Acetaminophen (10-30) mcg/mL Ur Barbiturates Screen (Gqyipj=007) ng/mL Phenytoin (10-20) mcg/mL Ur Phencyclidine Scrn (Cutoff=25) ng/mL Ur Amphetamines Screen (Wvncmu=6211) ng/mL U Benzodiazepines Scrn (Igeqgi=262) ng/mL Urine Cocaine Screen (Cutoff= 300) ng/mL U Marijuana (THC) Screen (Cutoff = 50) ng/mL Ethyl Alcohol (0-10) mg/dL
[2016-12-17] MEDS ORDERED: Vancomycin 1,000 MG in D5% in Water 250 ML IVPB ONE (11:58)
--- NOTE | 2016-12-17 13:51 | Pulmonology History & Physical ---
<RudiKenyatta mccarthy - Last Filed: 12/17/16 16:03> Date of Encounter: 12/17/16 Time of Encounter: 13:40 Assessment and Plan (1) Septic shock Current visit: Yes Status: Acute At emergency department, patient had temperature of 103.1, heart rate 126, blood pressure 85/52, WBC 15.9. Initial lactic acid was 2.9. Repeat value was 1.4. source of infection likely secondary to UTI in setting of bilateral hydroureter. Patient has had multiple UTIs in the past, according to records. Chest x-ray unremarkable head CT showed no acute abnormality CT A/P showed bladder distention with mild bilateral Hydroureter without hydronephrosis. No stones visualized. CT of the cervical spine showed no acute abnormality. Lumbar spine CT showed no signs of abscess, osteomyelitis, or diskitis. There was a small right foraminal disc protrusion at L5 S1 without nerve root compromise. Thoracic spine CT unremarkable. In ED, there was concern of spinal abscess in setting of new back pain and possible history of IVDU (patient denies hx), MRI was ordered but could not be done due to patient's vagal stimulator. Plan: appreciate urology recommendations Titrate levophed to maintain MAP around 60 and wean off as tolerated ceftriaxone 1 g daily monitor urine output barclay to gravity patient will receive 5th L fluid bolus with maintenance fluids will repeat lactic acid tomorrow morning (2) Urinary tract infection Current visit: Yes Status: Acute plan as above. Qualifiers: Urinary tract infection type: site unspecified Hematuria presence: without hematuria Qualified Code(s): N39.0 - Urinary tract infection, site not specified (3) Generalized seizure Current visit: Yes Status: Acute likely secondary to stress and cocaine use. continue home medications. (4) Anxiety Current visit: Yes Status: Acute patient states she takes klonopin at home for anxiety. will continue in order to avoid withdraw seizures. will continue her home suboxone. patient denies hx of recreational drugs and IV drugs, including cocaine. however, UDS was positive for cocaine. (5) DVT prophylaxis Current visit: Yes Status: Acute heparin SQ History of Present Illness Chief complaint: seizures HPI: Ms. Sullivan is a 31 year old female with past medical history of anxiety, seizures. Patient was brought to emergency department via EMS because of seizure activity. Per EMS, after arrival to her home, she was slightly confused but was meditating well. Patient does have a history of seizures and sees neurologist Dr. Bill at [facility], and states that she follows up with him regularly. She states that her seizures began when she was 4 years old and that her mother and her 2 eldest children have seizures as well. Home medications include phenytoin and Keppra. Patient reports that she has been taking her seizure medications as prescribed and never misses a dose. Recently her seizures started about 3 to 4 days ago. At that time, she states she had about 3 seizures and arrow. She also reports she had seizure yesterday and seizure today prior to arrival to the emergency department. Patient's fianc was at bedside during interview. Patient racheal states that when she has the seizures , her body starts shaking vigorously and she makes incomprehensible noises. He also states that her last seizure prior to arrival to the emergency department lasted about 5 to 7 minutes. ROS: patient admits to having nausea states she had vomiting all day yesterday, she reports fever of 103 at home and in the emergency department. She admits to having chills. She denies cough, hematuria, blood in her stool. She admits to being very fatigued. She denies having any tongue biting and denies loss of bowel or bladder function during her seizure episodes. She denies any recent, sick contacts. She denies diarrhea. She does report having a headache and low back pain that started about 2 days ago. social hx: smokes 2-3 cigarettes per day since age 9. she occasionally drinks. she denies use of cocaine, marijuana, and denies history of IV drug use. SHe lives with her fiance and his aunt. SHe has four children, but they are currently with her mother. SHe states "my children live with my mother while I get myself together." She states she is anxious and has been under a lot of stress recently. SHe recently was evicted from her apartment due to not being able to pay rent, and has been anxious ever since her sister was murdered about two years ago. she feels safe at home and denies being physically or emotionally abused by anyone. family Hx: mother has lung cancer, history of seizures, is smoker. father is alive and has "heart problems." She has one living older brother and one living sister who are healthy. her oldest two children have seizures. Past Med Surg Social Fam HX - Past Medical History Medical history: seizures Psychiatric history: no psych history - Past Surgical History Surgical History: cholecystectomy, other - Social History Smoking Status: Former smoker Smokeless Tobacco Status: No Alcohol use: none Drug use: none - Family History Mother Age: 56 Living Status: Still Living Hx Family Respiratory Disorders: Yes (Lung CA) Hx Family Neurologic Disorders: Yes (SEIZURES) Father Age: 67 Hx Family Cardiac Disorders: Yes Medications and Allergies Phenytoin ER [Dilantin] 300 mg PO BID 08/04/15 [History] LevETIRAcetam [Keppra] 500 mg PO BID #30 tablet 07/27/16 [Rx] Buprenorphine HCl/Naloxone HCl [Buprenorphin-Naloxon 8-2 mg Sl] 2 tab SL DAILY 12/17/16 [History] clonazePAM [Klonopin] 2 mg PO BID PRN 12/17/16 [History] Allergies No Known Allergies Allergy (Verified 05/01/15 18:37) All Systems: A 10-system review of systems was performed and is negative for pertinent findings except as documented above in the HPI. Physical Examination General appearance: no acute distress, alert, lethargic Eyes: nonicteric ENT: oropharynx moist Neck: supple, no lymphadenopathy Effort: normal Auscultation: bilateral: clear Cardiovascular: regular rate and rhythm Gastrointestinal: normoactive bowel sounds, soft, non-tender, non-distended Integumentary: normal Extremities: no cyanosis, no edema, no clubbing Musculoskeletal: no deformities normal mental status, non-focal exam mood appropriate, anxious Results - Laboratory Findings CBC and BMP: 12/17/16 14:45 12/17/16 14:45 Abnormal lab findings: Abnormal lab results WBC 15.9 K/mcL (4.3-11.1) H 12/17/16 06:07 Hgb 10.0 g/dL (11.5-15.4) L 12/17/16 06:07 Hct 30.5 % (35.3-44.9) L 12/17/16 06:07 MCV 79.4 fL (83.0-100.0) L 12/17/16 06:07 MCH 26.0 pg (28.0-33.3) L 12/17/16 06:07 RDW 17.7 % (11.5-14.5) H 12/17/16 06:07 MPV 8.5 fL (9.4-12.4) L 12/17/16 06:07 Band Neutrophils % 16.0 % (0-4) H 12/17/16 06:07 Neutrophils # 15.0 K/mcL (1.6-8.9) H 12/17/16 06:07 Calcium 7.9 mg/dL (8.6-10.8) L 12/17/16 06:07 Magnesium 1.2 mg/dL (1.6-2.6) L 12/17/16 06:07 AST 56 Units/L (5-34) H 12/17/16 06:07 Alkaline Phosphatase 182 Units/L (38-126) H 12/17/16 06:07 Albumin 2.9 g/dL (3.5-5.0) L 12/17/16 06:07 Albumin/Globulin Ratio 0.9 (1.1-2.2) L 12/17/16 06:07 Urine Clarity Turbid (Clear) A 12/17/16 06:13 Urine Nitrite Positive (Negative) A 12/17/16 06:13 Ur Leukocyte Esterase Moderate (Negative) H 12/17/16 06:13 Urine Microscopic WBC 50-100 per hpf (0-3) H 12/17/16 06:13 Ur Squamous Epith Cells Many per lpf (None-Few) H 12/17/16 06:13 Urine Bacteria Many per hpf (None-Few) H 12/17/16 06:13 Ur Culture Indicated? YES (NO) A 12/17/16 06:13 Salicylates < 5.0 mg/dL (15-30) L 12/17/16 06:07 Acetaminophen < 1.0 mcg/mL (10-30) L 12/17/16 06:07 Phenytoin 7.7 mcg/mL (10-20) L 12/17/16 06:07 Urine Cocaine Screen Positive ng/mL (Cutoff= 300) H 12/17/16 06:13 <Vasyl Willett - Last Filed: 12/17/16 17:25> Date of Encounter: 12/17/16 History of Present Illness HPI: Ms. Sullivan is a 31 year old female All Systems: A 10-system review of systems was performed and is negative for pertinent findings except as documented above in the HPI. Physical Examination Vital Signs: Vital Signs, Last 4 Hours Temp Pulse Resp BP Pulse Ox 12/17/16 17:06 96 20 103/61 98 12/17/16 16:31 98.3 F 82 20 82/52 98 12/17/16 16:05 77 18 110/61 98 12/17/16 15:35 85 20 104/68 98 12/17/16 15:07 98.8 F 86 22 107/61 97 12/17/16 14:50 83 20 106/60 98 12/17/16 14:30 79 20 103/59 98 12/17/16 14:06 80 97 12/17/16 13:45 99.6 F 82 18 92/51 99 Results - Laboratory Findings CBC and BMP: 12/17/16 14:45 12/17/16 14:45 Abnormal lab findings: Abnormal lab results WBC 19.5 K/mcL (4.3-11.1) H 12/17/16 14:45 RBC 3.53 M/mcL (3.82-4.97) L 12/17/16 14:45 Hgb 9.3 g/dL (11.5-15.4) L 12/17/16 14:45 Hct 28.3 % (35.3-44.9) L 12/17/16 14:45 MCV 80.2 fL (83.0-100.0) L 12/17/16 14:45 MCH 26.3 pg (28.0-33.3) L 12/17/16 14:45 RDW 18.0 % (11.5-14.5) H 12/17/16 14:45 MPV 9.2 fL (9.4-12.4) L 12/17/16 14:45 Band Neutrophils % 16.0 % (0-4) H 12/17/16 06:07 Neutrophils # 16.5 K/mcL (1.6-8.9) H 12/17/16 14:45 Chloride 111 mEq/L (98-109) H 12/17/16 14:45 POC Glucose 125 (58-89) H 12/17/16 14:01 Calcium 7.9 mg/dL (8.6-10.8) L 12/17/16 14:45 Magnesium 1.2 mg/dL (1.6-2.6) L 12/17/16 06:07 AST 56 Units/L (5-34) H 12/17/16 06:07 Alkaline Phosphatase 182 Units/L (38-126) H 12/17/16 06:07 Albumin 2.9 g/dL (3.5-5.0) L 12/17/16 06:07 Albumin/Globulin Ratio 0.9 (1.1-2.2) L 12/17/16 06:07 Urine Clarity Turbid (Clear) A 12/17/16 06:13 Urine Nitrite Positive (Negative) A 12/17/16 06:13 Ur Leukocyte Esterase Moderate (Negative) H 12/17/16 06:13 Urine Microscopic WBC 50-100 per hpf (0-3) H 12/17/16 06:13 Ur Squamous Epith Cells Many per lpf (None-Few) H 12/17/16 06:13 Urine Bacteria Many per hpf (None-Few) H 12/17/16 06:13 Ur Culture Indicated? YES (NO) A 12/17/16 06:13 Salicylates < 5.0 mg/dL (15-30) L 12/17/16 06:07 Acetaminophen < 1.0 mcg/mL (10-30) L 12/17/16 06:07 Phenytoin 7.7 mcg/mL (10-20) L 12/17/16 06:07 Urine Cocaine Screen Positive ng/mL (Cutoff= 300) H 12/17/16 06:13 - Attending Attestation I examined this patient and my medical decision-making was reviewed with the BAND STRAIGHTENER/PA/Advanced Practice Nurse/Resident Physician. I agree with the documented findings, disposition and treatment plan as described except to the extent set forth below. Patient seen and examined. Labs, radiology, chart personally reviewed. Agree with resident's history and physical, assessment, plan with following comments: SWABBER: Patient follows commands, resume her seizure medications and coordinate with pharmacy about the dosage on that level. Pulmonary: Acceptable oxygenation and ventilation Cardiovascular: Shock which is most likely septic shock and patient claims her blood pressure normally runs in the low side for that reason we will target map of 60 as long as patient mentation and organ perfusion are adequate. I feel the patient requires more fluid resuscitation and bolus IV fluid was given. I have discussed with the ER physician the plan. GI: Nutrition per dietary and GI prophylaxis per routine Heme: DVT prophylaxis per routine ID: Continue antibiotics and plan to de-escalation Renal; urine out put and renal funtion reviewed. It is not clear to me why patient has abnormal CT findings regarding Bladder and ureters for that reason I consulted urology. Endorcine: blood glucose is monitored Lines: all lines checked and no evidence of infections Skin: skin care to prevent pressure ulcers per nursing routine care I spent 40 min of Critical Care time with this patient. It involved decision making of high complexity to assess, manipulate, and support vital organ system failure and/or to prevent further life threatening deterioration of the patient' s condition. The time involved in the performance of separately reportable procedures was not counted toward critical care time.
[2016-12-17] MEDS ORDERED: Acetaminophen 325 MG TABLET PO PRN (14:24)
[2016-12-17 15:08] LABS: Basophils % 0.2 %; Eosinophils # 0.1 K/mcL (0.0-0.6); Eosinophils % 0.4 %; Hematocrit 28.3 % (35.3-44.9); Hemoglobin 9.3 g/dL (11.5-15.4); Immature Granulocytes % 1.3 % (0-4); Lymphocytes # 1.6 K/mcL (0.6-4.6); Lymphocytes % 8.4 %; Mean Corpuscular HGB Conc 32.9 g/dL (31.6-35.5); Mean Corpuscular Hemoglobin 26.3 pg (28.0-33.3); Mean Corpuscular Volume 80.2 fL (83.0-100.0); Mean Platelet Volume 9.2 fL (9.4-12.4); Neutrophils # 16.5 K/mcL (1.6-8.9); Platelet Count 282 K/mcL (140-400); Red Blood Count 3.53 M/mcL (3.82-4.97); Segmented Neutrophils % 84.7 %
[2016-12-17 15:50] LABS: BUN/Creatinine Ratio 13 (6-26); Blood Urea Nitrogen 9 mg/dL (7-20); Calcium 7.9 mg/dL (8.6-10.8); Carbon Dioxide 25 mEq/L (19-29); Chloride 111 mEq/L (98-109); Glucose 90 mg/dL (70-99); Osmolality,Calculated 290 (280-300); Potassium 3.8 mEq/L (3.5-4.5); Sodium 141 mEq/L (136-145); eGFR For African Americans > 60 (> 60); eGFR For Non-African Americans > 60 (> 60)
[2016-12-17] MEDS ORDERED: clonazePAM 1 MG TABLET PO PRN (16:08)
[2016-12-17] MEDS ORDERED: Ketorolac 15 MG/ML VIAL IVP PRN (17:41)
[2016-12-17] MEDS ORDERED: *HR* Heparin 5,000 UNIT/ML VIAL SQ SCH (18:00)
--- NOTE | 2016-12-17 18:42 | Urology - Consult Note ---
Date of Encounter: 12/17/16 Time of Encounter: 18:40 - Assessment and Plan (1) Incomplete bladder emptying Current Visit: Yes Status: Acute Assessment and plan: 31-year-old woman with a history of incomplete bladder emptying and a severe urinary tract infection. I reviewed her CT scan. I see no evidence of stone. She currently has an indwelling catheter. We will closely monitor. I recommend that the catheter remained in place throughout her hospital stay given her urinary retention. We will have her follow-up as an outpatient for a voiding trial. Consideration for complex urodynamics will be made upon discharge. (2) Urinary tract infection Current Visit: Yes Status: Acute Assessment and plan: She has a severe urinary tract infection with sepsis. She is on raw spectrum antibiotics. I appreciate critical care support. We will await the results of the cultures. Qualifiers: Urinary tract infection type: site unspecified Hematuria presence: without hematuria Qualified Code(s): N39.0 - Urinary tract infection, site not specified Urology CN:HPI Consult date: 12/17/16 Reason for consult Urology: Hydronephrosis Requesting physician: Vasyl Willett History of present illness: 31-year-old woman presents with fevers and a urinary tract infection. She has a history of seizures as well. She was admitted to the ICU for urinary tract infection with sepsis. She had hypotension. A CT scan was performed which showed a distended bladder and mild bilateral hydroureter. She was somnolent today during our interview. She says that she has had difficulty emptying her bladder. She feels that she has to strain to urinate. She denies any surgery on her bladder. She wants to know when she will be discharged from the hospital. Currently, a catheter is in place. Her urine is clear yellow. Past Med Surg Social Fam HX - Past Medical History Medical history: seizures Psychiatric history: no psych history - Past Surgical History Surgical History: cholecystectomy, other - Social History Smoking Status: Former smoker Smokeless Tobacco Status: No Alcohol use: none Drug use: none - Family History Mother Age: 56 Living Status: Still Living Hx Family Respiratory Disorders: Yes (Lung CA) Hx Family Neurologic Disorders: Yes (SEIZURES) Father Age: 67 Hx Family Cardiac Disorders: Yes Medications and Allergies Phenytoin ER [Dilantin] 300 mg PO BID 08/04/15 [History] LevETIRAcetam [Keppra] 500 mg PO BID #30 tablet 07/27/16 [Rx] Buprenorphine HCl/Naloxone HCl [Buprenorphin-Naloxon 8-2 mg Sl] 2 tab SL DAILY 12/17/16 [History] clonazePAM [Klonopin] 2 mg PO BID PRN 12/17/16 [History] Allergies No Known Allergies Allergy (Verified 05/01/15 18:37) Review of Systems - Constitutional fever(s) - EENT Nose, mouth and throat: no dizziness - Cardiovascular no chest pain - Respiratory no cough - Gastrointestinal no abdominal pain - Genitourinary Genitourinary: no hematuria - Integumentary no rash - Neurological no weakness - Psychiatric no suicidal ideation - Hematologic/Lymphatic no easy bruising - Allergic/Immunologic no wheezing Exam Initial Vital Signs Temp Pulse Resp BP Pulse Ox 103.1 F H 126 18 102/64 98 12/17/16 05:13 12/17/16 05:13 12/17/16 05:13 12/17/16 05:13 12/17/16 05:13 - General physical appearance Present: well developed, well nourished, no distress - Eyes Absent: icteric - ENT Present: normal nares - Neck Present: trachea midline - Respiratory Present: normal respiratory effort - Cardiovascular Cardiovascular exam IM: RRR - Abdomen Abdomen: Present: soft Urology Results - Labs 12/17/16 14:45 12/17/16 14:45 Abnormal lab results WBC 19.5 K/mcL (4.3-11.1) H 12/17/16 14:45 RBC 3.53 M/mcL (3.82-4.97) L 12/17/16 14:45 Hgb 9.3 g/dL (11.5-15.4) L 12/17/16 14:45 Hct 28.3 % (35.3-44.9) L 12/17/16 14:45 MCV 80.2 fL (83.0-100.0) L 12/17/16 14:45 MCH 26.3 pg (28.0-33.3) L 12/17/16 14:45 RDW 18.0 % (11.5-14.5) H 12/17/16 14:45 MPV 9.2 fL (9.4-12.4) L 12/17/16 14:45 Band Neutrophils % 16.0 % (0-4) H 12/17/16 06:07 Neutrophils # 16.5 K/mcL (1.6-8.9) H 12/17/16 14:45 Chloride 111 mEq/L (98-109) H 12/17/16 14:45 POC Glucose 125 (58-89) H 12/17/16 14:01 Calcium 7.9 mg/dL (8.6-10.8) L 12/17/16 14:45 Magnesium 1.2 mg/dL (1.6-2.6) L 12/17/16 06:07 AST 56 Units/L (5-34) H 12/17/16 06:07 Alkaline Phosphatase 182 Units/L (38-126) H 12/17/16 06:07 Albumin 2.9 g/dL (3.5-5.0) L 12/17/16 06:07 Albumin/Globulin Ratio 0.9 (1.1-2.2) L 12/17/16 06:07 Urine Clarity Turbid (Clear) A 12/17/16 06:13 Urine Nitrite Positive (Negative) A 12/17/16 06:13 Ur Leukocyte Esterase Moderate (Negative) H 12/17/16 06:13 Urine Microscopic WBC 50-100 per hpf (0-3) H 12/17/16 06:13 Ur Squamous Epith Cells Many per lpf (None-Few) H 12/17/16 06:13 Urine Bacteria Many per hpf (None-Few) H 12/17/16 06:13 Ur Culture Indicated? YES (NO) A 12/17/16 06:13 Salicylates < 5.0 mg/dL (15-30) L 12/17/16 06:07 Acetaminophen < 1.0 mcg/mL (10-30) L 12/17/16 06:07 Phenytoin 7.7 mcg/mL (10-20) L 12/17/16 06:07 Urine Cocaine Screen Positive ng/mL (Cutoff= 300) H 12/17/16 06:13 Diabetes panel 12/17/16 Range/Units 14:45 Sodium 141 (136-145) mEq/L Potassium 3.8 (3.5-4.5) mEq/L Chloride 111 H (98-109) mEq/L Carbon Dioxide 25 (19-29) mEq/L BUN 9 (7-20) mg/dL Creatinine 0.72 (0.57-1.11) mg/dL Glucose 90 (70-99) mg/dL Calcium 7.9 L (8.6-10.8) mg/dL Calcium panel 12/17/16 Range/Units 14:45 Calcium 7.9 L (8.6-10.8) mg/dL Pituitary panel 12/17/16 12/17/16 Range/Units 14:45 14:45 Sodium 141 (136-145) mEq/L Potassium 3.8 (3.5-4.5) mEq/L Chloride 111 H (98-109) mEq/L Carbon Dioxide 25 (19-29) mEq/L BUN 9 (7-20) mg/dL Creatinine 0.72 (0.57-1.11) mg/dL Glucose 90 (70-99) mg/dL Calcium 7.9 L (8.6-10.8) mg/dL Prolactin 5.23 (5.18-26.53) ng/mL Adrenal panel 12/17/16 Range/Units 14:45 Sodium 141 (136-145) mEq/L Potassium 3.8 (3.5-4.5) mEq/L Chloride 111 H (98-109) mEq/L Carbon Dioxide 25 (19-29) mEq/L BUN 9 (7-20) mg/dL Creatinine 0.72 (0.57-1.11) mg/dL Glucose 90 (70-99) mg/dL Calcium 7.9 L (8.6-10.8) mg/dL All other labs normal. - Imaging CT scan - abdomen: report reviewed, image reviewed CT scan - pelvis: report reviewed, image reviewed Consult Discharge Plan - Plan Referrals: NO,PCP [Primary Care Provider] -
[2016-12-17] MEDS ORDERED: levETIRAcetam 250 MG TABLET PO SCH (21:00)
[2016-12-17 21:11] VITALS: BP 107/68
[2016-12-17] MEDS ORDERED: Ibuprofen 400 MG TABLET PO ONE (21:29)
--- NOTE | 2016-12-17 21:38 | Discharge Summary ---
Date of Encounter: 12/17/16 Time of Encounter: 21:36 - Discharge Diagnosis (1) Septic shock Priority: Primary Status: Acute (2) Urinary tract infection Priority: Primary Status: Acute Qualifiers: Urinary tract infection type: site unspecified Hematuria presence: without hematuria Qualified Code(s): N39.0 - Urinary tract infection, site not specified (3) Generalized seizure Priority: Primary Status: Acute - Discharge Medications Home Medications: Phenytoin ER [Dilantin ER] 300 mg PO BID 08/04/15 [History] LevETIRAcetam [Keppra] 500 mg PO BID #30 tablet 07/27/16 [Rx] Buprenorphine HCl/Naloxone HCl [Buprenorphin-Naloxon 8-2 mg Sl] 2 tab SL DAILY 12/17/16 [History] clonazePAM [Klonopin] 2 mg PO BID PRN 12/17/16 [History] Allergies/Adverse Reactions: Allergies No Known Allergies Allergy (Verified 05/01/15 18:37) Date of admission: 12/17/16 13:19 Primary care physician: PCP NO Consults: 12/17/16 15:52 Consult to Urology [CONS] Routine Consulting Provider: Urology Rashida Reason for Consult: septic shock secondary to UTI, bilateral hydroureter without hydronephrosis Call Completed: Yes Discharging clinician: Cong Licea Anticipated date of discharge: 12/17/16 - Patient Status Disposition: Transfer Other Condition: Fair Functional capacity at discharge: independent ambulation Overall status at discharge: patient is progressing back to baseline - Discharge Instructions Follow Up With: NO,PCP [Primary Care Provider] - - Diet and Activity Diet: advance to your usual diet Interval History: Patient and family are requesting transfer to [facility] for further care. [facility] has accepted the patient has been available. Patient will be transferred in stable condition. Hospital course: Ms. Sullivan is a 31 year old female with history of drug use and seizure disorder presented today after witnessed seizure. She was brought to the emergency department and was slightly confused upon arrival. No witnessed seizures after arrival. Workup revealed a UTI and hypotension that persisted despite adequate fluid resuscitation so norepinephrine was initiated. Approximately 4 hours prior to transfer the patient's blood pressure improved and patient is no longer requiring pressure support. Cultures were drawn, antibiotics were initiated. The family states that her neurologist is at [facility] in [place] and that her mother was recently at [facility] and had a good experience so the family is requesting transfer to [facility] for further care. The patient also verbalizes desire for transfer. The patient will be transferred to [facility] in stable condition. - Time Spent with Patient Total time spent providing and/or coordinating discharge services: - Constitutional Vitals: Temp Pulse Resp BP Pulse Ox 96.9 F L 79 20 107/68 98 12/17/16 20:00 12/17/16 21:00 12/17/16 21:00 12/17/16 21:00 12/17/16 21:00
--- NOTE | 2016-12-18 06:25 | Discharge Summary ---
<Cong Licea - Last Filed: 12/18/16 06:23> Date of Encounter: 12/17/16 Time of Encounter: 21:36 - Discharge Diagnosis (1) Septic shock Priority: Primary Status: Acute (2) Urinary tract infection Priority: Primary Status: Acute Qualifiers: Urinary tract infection type: site unspecified Hematuria presence: without hematuria Qualified Code(s): N39.0 - Urinary tract infection, site not specified (3) Generalized seizure Priority: Primary Status: Acute - Discharge Medications Home Medications: Phenytoin ER [Dilantin ER] 300 mg PO BID 08/04/15 [History] LevETIRAcetam [Keppra] 500 mg PO BID #30 tablet 07/27/16 [Rx] Buprenorphine HCl/Naloxone HCl [Buprenorphin-Naloxon 8-2 mg Sl] 2 tab SL DAILY 12/17/16 [History] clonazePAM [Klonopin] 2 mg PO BID PRN 12/17/16 [History] Allergies/Adverse Reactions: Allergies No Known Allergies Allergy (Verified 05/01/15 18:37) Labs on day of discharge: Labs from last 24 hours 12/17/16 12/17/16 12/17/16 15:20 14:45 14:45 WBC RBC Hgb Hct MCV MCH MCHC RDW Plt Count MPV Immature Gran % Seg Neutrophils % Lymphocytes % Monocytes % Eosinophils % Basophils % Neutrophils # Lymphocytes # Monocytes # Eosinophils # Basophils # Sodium 141 Potassium 3.8 Chloride 111 H Carbon Dioxide 25 BUN 9 Creatinine 0.72 Est GFR ( Amer) > 60 Est GFR (Non-Af Amer) > 60 BUN/Creatinine Ratio 13 Glucose 90 POC Glucose Calculated Osmolality 290 Lactic Acid 1.0 Calcium 7.9 L Prolactin Urine Test Negative 12/17/16 12/17/16 12/17/16 14:45 14:45 14:01 WBC 19.5 H RBC 3.53 L Hgb 9.3 L Hct 28.3 L MCV 80.2 L MCH 26.3 L MCHC 32.9 RDW 18.0 H Plt Count 282 MPV 9.2 L Immature Gran % 1.3 Seg Neutrophils % 84.7 Lymphocytes % 8.4 Monocytes % 5.0 Eosinophils % 0.4 Basophils % 0.2 Neutrophils # 16.5 H Lymphocytes # 1.6 Monocytes # 1.0 Eosinophils # 0.1 Basophils # 0.0 Sodium Potassium Chloride Carbon Dioxide BUN Creatinine Est GFR ( Amer) Est GFR (Non-Af Amer) BUN/Creatinine Ratio Glucose POC Glucose 125 H Calculated Osmolality Lactic Acid Calcium Prolactin 5.23 Urine Test Date of admission: 12/17/16 13:19 Primary care physician: PCP NO Consults: 12/17/16 15:52 Consult to Urology [CONS] Routine Consulting Provider: Urology Rashida Reason for Consult: septic shock secondary to UTI, bilateral hydroureter without hydronephrosis Call Completed: Yes Discharging clinician: Cong Licea Anticipated date of discharge: 12/18/16 - Patient Status Disposition: Transfer Other Condition: Fair - Discharge Instructions Follow Up With: NO,PCP [Primary Care Provider] - - Hospital Course Hospital course: Ms. Sullivan is a 31 year old female with history of drug use and seizure disorder presented today after witnessed seizure. She was brought to the emergency department and was slightly confused upon arrival. No witnessed seizures after arrival. Workup revealed a UTI and hypotension that persisted despite adequate fluid resuscitation so norepinephrine was initiated. Approximately 4 hours prior to transfer the patient's blood pressure improved and patient is no longer requiring pressure support. Cultures were drawn, antibiotics were initiated. The family states that her neurologist is at [facility] in [place] and that her mother was recently at [facility] and had a good experience so the family is requesting transfer to [facility] for further care. The patient also verbalizes desire for transfer. The patient will be transferred to [facility] in stable condition. - Time Spent with Patient Total time spent providing and/or coordinating discharge services: <Vasyl Willett - Last Filed: 12/18/16 11:49> Date of Encounter: 12/18/16 Labs on day of discharge: Labs from last 24 hours 12/17/16 12/17/16 12/17/16 15:20 14:45 14:45 WBC RBC Hgb Hct MCV MCH MCHC RDW Plt Count MPV Immature Gran % Seg Neutrophils % Lymphocytes % Monocytes % Eosinophils % Basophils % Neutrophils # Lymphocytes # Monocytes # Eosinophils # Basophils # Sodium 141 Potassium 3.8 Chloride 111 H Carbon Dioxide 25 BUN 9 Creatinine 0.72 Est GFR ( Amer) > 60 Est GFR (Non-Af Amer) > 60 BUN/Creatinine Ratio 13 Glucose 90 POC Glucose Calculated Osmolality 290 Lactic Acid 1.0 Calcium 7.9 L Prolactin Urine Test Negative 12/17/16 12/17/16 12/17/16 14:45 14:45 14:01 WBC 19.5 H RBC 3.53 L Hgb 9.3 L Hct 28.3 L MCV 80.2 L MCH 26.3 L MCHC 32.9 RDW 18.0 H Plt Count 282 MPV 9.2 L Immature Gran % 1.3 Seg Neutrophils % 84.7 Lymphocytes % 8.4 Monocytes % 5.0 Eosinophils % 0.4 Basophils % 0.2 Neutrophils # 16.5 H Lymphocytes # 1.6 Monocytes # 1.0 Eosinophils # 0.1 Basophils # 0.0 Sodium Potassium Chloride Carbon Dioxide BUN Creatinine Est GFR ( Amer) Est GFR (Non-Af Amer) BUN/Creatinine Ratio Glucose POC Glucose 125 H Calculated Osmolality Lactic Acid Calcium Prolactin 5.23 Urine Test Date of admission: 12/17/16 13:19 Primary care physician: PCP NO Consults: 12/17/16 15:52 Consult to Urology [CONS] Routine Consulting Provider: Urology Rashida Reason for Consult: septic shock secondary to UTI, bilateral hydroureter without hydronephrosis Call Completed: Yes - Hospital Course Hospital course: Ms. Sullivan is a 31 year old female - Time Spent with Patient Total time spent providing and/or coordinating discharge services: - Attending Attestation I examined this patient and my medical decision-making was reviewed with the VIDEO GAME DESIGNER/PA/Advanced Practice Nurse/Resident Physician. I agree with the documented findings, disposition and treatment plan as described except to the extent set forth below. Patient was admitted for septic shock and she has strong history of seizure disorder. Family requested patient to be transferred
--- NOTE | 2016-12-18 07:18 | Electrocardiograph Report ---
[facility] Test Date: 2016-12-17 Pat Name: Mariann Sullivan Department: 104 Room: [facility] Gender: F Criminal Intelligence Analyst: EKP : [id number] Requested By: Lyn Capellan Order Number: [id number] Reading MD: Henry Prater MD Measurements Intervals [place] Rate: 119 P: 32 MN: 122 QRS: 7 QRSD: 74 T: 1 QT: 278 QTc: 349 Interpretive Statements SINUS TACHYCARDIA NONSPECIFIC ST \T\ T-WAVE ABNORMALITY ABNORMAL RHYTHM ECG Electronically Signed On 12-18-2016 7:16:41 EDT by Henry Prater MD
[2016-12-18 07:50] LABS: Acinetobacter baumannii by PCR Not Detected (Not Detect); Candida albicans by PCR Not Detected (Not Detect); Candida glabrata by PCR Not Detected (Not Detect); Candida krusei by PCR Not Detected (Not Detect); Candida parapsilosis by PCR Not Detected (Not Detect); Candida tropicalis by PCR Not Detected (Not Detect); Enterococcus by PCR Not Detected (Not Detect); Escherichia coli by PCR Not Detected (Not Detect); Klebsiella oxytoca by PCR Not Detected (Not Detect); Pseudomonas aeruginosa by PCR Not Detected (Not Detect); Serratia marcescens by PCR Not Detected (Not Detect); Staphylococcus aureus by PCR Not Detected (Not Detect); Streptococcus agalactiae(B)PCR Not Detected (Not Detect); Streptococcus by PCR Not Detected (Not Detect); Streptococcus pneumoniae PCR Not Detected (Not Detect); Streptococcus pyogenes (A) PCR Not Detected (Not Detect); blaKPC Carbapenem-Resist Gene Not Detected (Not Detect)
[2016-12-18 07:51] LABS: Klebsiella pneumoniae by PCR ***DETECTED*** (Not Detect)
== END 2016-12-17 22:17 | disposition short-term general hospital (02) | DRG 720 ==
LOC: EMEROO 05:11 → ICNU 13:19
PROVIDERS: ADMIT Internal Medicine Pulmonary Disease; ATTEND Internal Medicine Pulmonary Disease

== ENCOUNTER 2017-01-01 00:49 | Observation (INO) ==
[2017-01-01] MEDS ORDERED: *HR* LORazepam 2 MG/ML VIAL IVP ONE ×2 (01:58→02:07)
--- NOTE | 2017-01-01 02:04 | Emergency Department Note ---
START Narrative - START START: I examined this patient and my medical decision-making was reviewed with the [employer]/PA/Advanced Practice Nurse/Resident Physician. I agree with the documented findings, disposition and treatment plan as described except to the extent set forth below. Patient to ED after reported seizures. There is no one with the patient to provide history on my evaluation. Patient sitting at the edge of the bed rocking. Eyes closed. Lungs clear. She is not hypotensive. Plan. Patient known to myself and department. Was admitted recently for UTI sepsis. Does not appear to be in septic shock today. Still altered from multiple seizures. We will perform altered mental status workup and repeat UA. We will check Dilantin level and load is appropriate. Patient had a witnessed seizure department. Resolved after IV Ativan.
--- NOTE | 2017-01-01 03:13 | Emergency Department Note ---
Disposition Clinical Impression: Status epilepticus Disposition: Admitted As Inpatient Condition: Good Referrals: NO,PCP [Primary Care Provider] - Time of Disposition: 06:05 General Adult HPI - General Chief complaint: ED Seizure Stated complaint: seizure Source: EMS Limitations: no limitations Nursing Notes Reviewed: Yes Vital Signs Reviewed: Yes - History of Present Illness HPI Narrative: 31-year-old female who arrives via squad with reported seizures. Nursing notes indicate squad had reported grand mal seizure on the scene approximately 1 hour prior to their arrival here. Individuals on the scene report 5 seizures prior to squad arrival. Pain Scale: 0 - Related Data Home Medications Medication Instructions Recorded Confirmed Phenytoin ER [Dilantin ER] 300 mg PO BID 08/04/15 01/01/17 Previous Rx's Medication Instructions Recorded LevETIRAcetam [Keppra] 500 mg PO BID #30 tablet 07/27/16 Allergies Allergy/AdvReac Type Severity Reaction Status Date / Time aspirin AdvReac Gastrointestinal Verified 01/01/17 00:53 Upset Limitations: ROS unobtainable due to patients medical condition Past Medical History - Past Medical History Medical history: Reports: seizures Surgical history: Reports: cholecystectomy, other Psychiatric history: Reports: no psych history TYPE COPY EXAMINER history: Reports: no TYPE COPY EXAMINER history - Social History Smoking Status: Current every day smoker Smokeless Tobacco Status: No Alcohol use: Reports: occasionally Drug use: Reports: opiates, IVDU, prescription drug abuse Physical Exam - General Limitations: altered mental status General appearance: lethargic - Head Head exam: atraumatic, normocephalic - Eye Eye exam: Present: EOMI - ENT ENT exam: normal exam, normal oropharynx, mucous membranes moist - Neck Neck exam: Present: normal inspection, full ROM - Chest Chest inspection: Present: normal inspection, symmetric chest wall rise - Respiratory Respiratory exam: Present: normal lung sounds bilaterally. Absent: respiratory distress - Cardiovascular Cardiovascular exam: Present: regular rate, normal rhythm - Abdominal Exam Abdominal exam: Present: soft, Non-Tender - Extremities Exam Extremities exam: Present: normal inspection, full ROM, normal capillary refill - Back Exam Back exam: Present: full ROM - Psychiatric Psychiatric exam: Present: normal affect, normal mood - Skin Skin exam: Present: warm, dry, intact, normal color. Absent: rash, cyanosis, diaphoresis Course Course Narrative: 31-year-old female who arrives via squad. It's reported patient has past medical history of seizures. Squad had reported they had witnessed a grand mal seizure on scene, and bystanders had witnessed 5 seizures prior to squad's arrival. Vitals within normal limits. No evidence of infection. On examination patient appears somnolent. She does respond to pain. Workup initiated. The patient was discussed with Dr. Renee, who did have the face time with patient, and who was familiar with palpation from previous admission when she was admitted for UTI sepsis. Dr. Renee has ordered a CT of head due to patient's mental status today versus previous. We will also check Dilantin level. - Reevaluation(s) Reevaluation #1: Discussed patient with Dr. Renee, who is recommending admission for status epilepticus. I also discussed this patient with Dr. Meza, who requests that we speak with neurology. At This time patient is resting comfortably and examined. She is somnolent but arousable. Vitals stable. Time: 05:48 Reevaluation #2: Discussed with Dr. Meza who accepted patient. Time: 06:18 - Consultations Consultation #1: Discussed pt with oncall neuro Dr. Olivo, who feels pts seizures are being caused by her cocaine use. He agreed with admit to hospitalist, advised no med changes, and agreed to consult later today. Time: 06:03 Vital Signs Temperature 98.1 F 01/01/17 00:57 Pulse Rate 93 01/01/17 00:57 Respiratory Rate 16 01/01/17 00:57 Blood Pressure 122/63 01/01/17 00:57 O2 Sat by Pulse Oximetry 93 01/01/17 00:57 Temperature 98.1 F 01/01/17 00:57 Pulse Rate 84 01/01/17 06:05 Respiratory Rate 18 01/01/17 06:05 Blood Pressure 104/61 01/01/17 06:05 O2 Sat by Pulse Oximetry 99 01/01/17 06:05 Oxygen Delivery Oxygen Delivery Room Air Medical Decision Making - Lab Data Result diagrams: 01/01/17 02:44 01/01/17 02:44 Lab Results 01/01/17 01/01/17 01/01/17 Range/Units 02:44 02:44 02:44 WBC 8.9 (4.3-11.1) K/mcL RBC 4.16 (3.82-4.97) M/mcL Hgb 10.9 L (11.5-15.4) g/dL Hct 34.4 L (35.3-44.9) % MCV 82.7 L (83.0-100.0) fL MCH 26.2 L (28.0-33.3) pg MCHC 31.7 (31.6-35.5) g/dL RDW 17.5 H (11.5-14.5) % Plt Count 557 H (140-400) K/mcL MPV 9.1 L (9.4-12.4) fL Immature Gran % 0.1 (0-4) % Seg Neutrophils % 52.8 % Lymphocytes % 35.3 % Monocytes % 8.7 % Eosinophils % 2.3 % Basophils % 0.8 % Neutrophils # 4.7 (1.6-8.9) K/mcL Lymphocytes # 3.1 (0.6-4.6) K/mcL Monocytes # 0.8 (0.0-1.3) K/mcL Eosinophils # 0.2 (0.0-0.6) K/mcL Basophils # 0.1 (0.0-0.2) K/mcL Immature Plt Fraction 1.6 (1.1-6.1) % Sodium 139 (136-145) mEq/L Potassium 3.7 (3.5-4.5) mEq/L Chloride 105 (98-109) mEq/L Carbon Dioxide 22 (19-29) mEq/L BUN 4 L (7-20) mg/dL Creatinine 0.63 (0.57-1.11) mg/dL Est GFR ( Amer) > 60 (> 60) Est GFR (Non-Af Amer) > 60 (> 60) BUN/Creatinine Ratio 6 (6-26) Glucose 91 (70-99) mg/dL Calculated Osmolality 284 (280-300) Calcium 9.5 (8.6-10.8) mg/dL Total Bilirubin 0.2 (0.2-1.2) mg/dL Direct Bilirubin 0.2 (0.0-0.5) mg/dL Indirect Bilirubin 0.0 (0.0-1.2) mg/dL AST 15 (5-34) Units/L ALT 13 (0-55) Units/L Alkaline Phosphatase 94 (38-126) Units/L Ammonia 28 (18-72) mcmol/L Creatine Kinase 25 L (29-168) Units/L Serum Total Protein 7.1 (6.0-8.3) g/dL Albumin 3.4 L (3.5-5.0) g/dL Globulin 3.7 H (2.4-3.5) g/dL Albumin/Globulin Ratio 0.9 L (1.1-2.2) Urine Color (Yellow) Urine Clarity (Clear) Urine pH (5.0-8.0) pH Units Ur Specific [place] (1.010-1.025) Urine Protein (Neg-Trace) mg/dL Urine Glucose (UA) (Normal) mg/dL Urine Ketones (Negative) mg/dL Urine Blood (Negative) Urine Nitrite (Negative) Urine Bilirubin (Negative) Urine Urobilinogen (Normal) mg/dL Ur Leukocyte Esterase (Negative) Ur Culture Indicated? (NO) Salicylates < 5.0 L (15-30) mg/dL Urine Opiates Screen (Ocsvxn=799) ng/mL Acetaminophen < 1.0 L (10-30) mcg/mL Ur Barbiturates Screen (Azigfw=304) ng/mL Phenytoin (10-20) mcg/mL Ur Phencyclidine Scrn (Cutoff=25) ng/mL Ur Amphetamines Screen (Kiwqtr=7268) ng/mL U Benzodiazepines Scrn (Mosahb=834) ng/mL Urine Cocaine Screen (Cutoff= 300) ng/mL U Marijuana (THC) Screen (Cutoff = 50) ng/mL Ethyl Alcohol < 10 (0-10) mg/dL 01/01/17 01/01/17 01/01/17 Range/Units 02:44 03:00 03:00 WBC (4.3-11.1) K/mcL RBC (3.82-4.97) M/mcL Hgb (11.5-15.4) g/dL Hct (35.3-44.9) % MCV (83.0-100.0) fL MCH (28.0-33.3) pg MCHC (31.6-35.5) g/dL RDW (11.5-14.5) % Plt Count (140-400) K/mcL MPV (9.4-12.4) fL Immature Gran % (0-4) % Seg Neutrophils % % Lymphocytes % % Monocytes % % Eosinophils % % Basophils % % Neutrophils # (1.6-8.9) K/mcL Lymphocytes # (0.6-4.6) K/mcL Monocytes # (0.0-1.3) K/mcL Eosinophils # (0.0-0.6) K/mcL Basophils # (0.0-0.2) K/mcL Immature Plt Fraction (1.1-6.1) % Sodium (136-145) mEq/L Potassium (3.5-4.5) mEq/L Chloride (98-109) mEq/L Carbon Dioxide (19-29) mEq/L BUN (7-20) mg/dL Creatinine (0.57-1.11) mg/dL Est GFR ( Amer) (> 60) Est GFR (Non-Af Amer) (> 60) BUN/Creatinine Ratio (6-26) Glucose (70-99) mg/dL Calculated Osmolality (280-300) Calcium (8.6-10.8) mg/dL Total Bilirubin (0.2-1.2) mg/dL Direct Bilirubin (0.0-0.5) mg/dL Indirect Bilirubin (0.0-1.2) mg/dL AST (5-34) Units/L ALT (0-55) Units/L Alkaline Phosphatase (38-126) Units/L Ammonia (18-72) mcmol/L Creatine Kinase (29-168) Units/L Serum Total Protein (6.0-8.3) g/dL Albumin (3.5-5.0) g/dL Globulin (2.4-3.5) g/dL Albumin/Globulin Ratio (1.1-2.2) Urine Color Yellow (Yellow) Urine Clarity Clear (Clear) Urine pH 7.5 (5.0-8.0) pH Units Ur Specific [place] 1.016 (1.010-1.025) Urine Protein Negative (Neg-Trace) mg/dL Urine Glucose (UA) Normal (Normal) mg/dL Urine Ketones Negative (Negative) mg/dL Urine Blood Negative (Negative) Urine Nitrite Negative (Negative) Urine Bilirubin Negative (Negative) Urine Urobilinogen Normal (Normal) mg/dL Ur Leukocyte Esterase Negative (Negative) Ur Culture Indicated? NO (NO) Salicylates (15-30) mg/dL Urine Opiates Screen Negative (Tvduxf=483) ng/mL Acetaminophen (10-30) mcg/mL Ur Barbiturates Screen Negative (Kfwrgf=792) ng/mL Phenytoin 20.5 H (10-20) mcg/mL Ur Phencyclidine Scrn Negative (Cutoff=25) ng/mL Ur Amphetamines Screen Negative (Tbuslb=1495) ng/mL U Benzodiazepines Scrn Positive H (Pogcoz=163) ng/mL Urine Cocaine Screen Positive H (Cutoff= 300) ng/mL U Marijuana (THC) Screen Negative (Cutoff = 50) ng/mL Ethyl Alcohol (0-10) mg/dL
[2017-01-01 03:14] LABS: Basophils # 0.1 K/mcL (0.0-0.2); Basophils % 0.8 %; Eosinophils # 0.2 K/mcL (0.0-0.6); Eosinophils % 2.3 %; Hematocrit 34.4 % (35.3-44.9); Hemoglobin 10.9 g/dL (11.5-15.4); Immature Granulocytes % 0.1 % (0-4); Immature Platelets 1.6 % (1.1-6.1); Lymphocytes # 3.1 K/mcL (0.6-4.6); Lymphocytes % 35.3 %; Mean Corpuscular HGB Conc 31.7 g/dL (31.6-35.5); Mean Corpuscular Hemoglobin 26.2 pg (28.0-33.3); Mean Corpuscular Volume 82.7 fL (83.0-100.0); Mean Platelet Volume 9.1 fL (9.4-12.4); Monocytes # 0.8 K/mcL (0.0-1.3); Monocytes % 8.7 %; Neutrophils # 4.7 K/mcL (1.6-8.9); Platelet Count 557 K/mcL (140-400); Red Blood Count 4.16 M/mcL (3.82-4.97); Red Cell Distribution Width 17.5 % (11.5-14.5); Segmented Neutrophils % 52.8 %
[2017-01-01 03:29] LABS: Alanine Aminotransferase 13 Units/L (0-55); Albumin 3.4 g/dL (3.5-5.0); Albumin/Globulin Ratio 0.9 (1.1-2.2); Alkaline Phosphatase 94 Units/L (38-126); Aspartate Amino Transferase 15 Units/L (5-34); BUN/Creatinine Ratio 6 (6-26); Bilirubin,Direct 0.2 mg/dL (0.0-0.5); Bilirubin,Total 0.2 mg/dL (0.2-1.2); Calcium 9.5 mg/dL (8.6-10.8); Carbon Dioxide 22 mEq/L (19-29); Chloride 105 mEq/L (98-109); Creatine Kinase 25 Units/L (29-168); Globulin 3.7 g/dL (2.4-3.5); Glucose 91 mg/dL (70-99); Osmolality,Calculated 284 (280-300); Potassium 3.7 mEq/L (3.5-4.5); Sodium 139 mEq/L (136-145); Total Protein 7.1 g/dL (6.0-8.3); eGFR For African Americans > 60 (> 60); eGFR For Non-African Americans > 60 (> 60)
[2017-01-01 03:30] LABS: Acetaminophen < 1.0 mcg/mL (10-30); Blood Urea Nitrogen 4 mg/dL (7-20); Ethanol < 10 mg/dL (0-10); Salicylate < 5.0 mg/dL (15-30)
[2017-01-01] MEDS ORDERED: 0.9 % Sodium Chloride 1,000 ML IVC ONE ×2 (03:35→06:13)
[2017-01-01 03:51] LABS: Bilirubin,Urine Negative (Negative); Blood,Urine Negative (Negative); Clarity,Urine Clear (Clear); Color,Urine Yellow (Yellow); Glucose,Urine (UA) Normal (Normal); Ketones,Urine Negative (Negative); Leukocyte Esterase,Urine Negative (Negative); Nitrite,Urine Negative (Negative); PH,Urine 7.5 pH Units (5.0-8.0); Protein,Urine Negative (Neg-Trace); Specific Gravity,Urine 1.016 (1.010-1.025); Urobilinogen,Urine Normal (Normal)
[2017-01-01 03:58] LABS: Amphetamine Screen,Urine Negative ng/mL (Cutoff=1000); Barbiturate Screen,Urine Negative ng/mL (Cutoff=200); Benzodiazepines Screen,Urine Positive ng/mL (Cutoff=200); Cannabinoid Screen,Urine Negative ng/mL (Cutoff = 50); Cocaine Screen,Urine Positive ng/mL (Cutoff= 300); Opiate Screen,Urine Negative ng/mL (Cutoff=300); Phencyclidine Screen,Urine Negative ng/mL (Cutoff=25)
[2017-01-01] MEDS ORDERED: 0.9 % Sodium Chloride 1,000 ML ONE (06:16)
[2017-01-01] MEDS ORDERED: Acetaminophen 325 MG TABLET PO PRN (08:18)
[2017-01-01] MEDS ORDERED: levETIRAcetam 250 MG TABLET PO SCH (09:00)
[2017-01-01 09:57] VITALS: BP 99/70
--- NOTE | 2017-01-01 10:02 | Internal Med History&Physical ---
Date of Encounter: 01/01/17 Time of Encounter: 09:00 Assessment and Plan (1) Generalized seizure Status: Acute Patient with known history of seizure disorder with increased frequency of seizures could be caused by several factors including surreptitious use of gabapentin and cocaine abuse. We will institute seizure precautions. Consult neurology. I have educated the patient about the risks of drug use. (2) DVT prophylaxis Status: Acute Subcutaneous heparin for prophylaxis. (3) Status epilepticus Status: Acute Patient had 5 episodes of witnessed seizures by bystanders at home and one episode in the department. She reports compliance with her medication which includes phenytoin and Keppra. Her Dilantin level is therapeutic at 20.5. She was positive for cocaine which can lower the seizure threshold. She denies recreational drug use but I suspect that the test was a true positive. On review of her records she also tested positive for cocaine on 12/17/2016. She also reported started taking gabapentin for seizure control. There are case reports of gabapentin causing status epilepticus. Plan: Seizure precautions. IV Ativan as needed for recurrent seizures. Continue with Keppra and Dilantin. I advised her to not take any medications that were not prescribed to her and especially gabapentin. We will consult neurology. EEG to be obtained at neurology's discretion. (4) Cocaine abuse Status: Acute Patient was positive for cocaine both today and 2 weeks ago which suggests some he does not even though she denies that it may be a true positive result. I have advised her to refrain from using any recreational drugs as she can have increased seizure activity. Internal Medicine - H&P: HPI Chief complaint: Seizures Admitted From: Emergency Dept Plans for Post Hospital Care: Home History of present illness: Ms. Sullivan is a 31 year old female with past medical history significant for seizure disorder, recent UTI sepsis and septic shock who was brought to the hospital by EMS after multiple witnessed seizures at home. The history obtained from the patient is limited by poor recollection of the events preceding her presentation to the hospital. Per records the patient had 5 seizures at home and had a 45 second episode of generalized seizure in the emergency department. She states that this started yesterday and prior to that her seizure disorder has been controlled with medication. She takes Dilantin and Keppra for seizure disorder. She states that she started taking gabapentin 2 days ago to attempt to better control her seizures; she also says that the gabapentin was not prescribed to her. In the emergency department she appeared to be postictal. She was given Ativan. CT of the head was negative. She was referred for admission. A 10 point review of systems was negative except for seizures Past medical history as above Family history positive for seizure disorder in the patient's aunt and grandmother. Social history: She states that she quit smoking 10 days ago, denies alcohol abuse, denies recreational drug use. Past Med Surg Social Fam HX - Past Medical History Medical history: seizures Psychiatric history: no psych history - Past Surgical History Surgical History: cholecystectomy, other - Social History Smoking Status: Current every day smoker Smokeless Tobacco Status: No Alcohol use: occasionally Drug use: opiates, IVDU, prescription drug abuse - Family History Mother Living Status: Still Living Hx Family Respiratory Disorders: Yes (Lung CA) Hx Family Neurologic Disorders: Yes (SEIZURES) Father Hx Family Cardiac Disorders: Yes Internal Medicine - H&P: Meds Buprenorphine HCl/Naloxone HCl [Buprenorphin-Naloxon 8-2 mg Sl] 1 each SL BID [History] Ciprofloxacin HCl 750 mg PO BID 01/01/17 [History] Ferrous Sulfate [Ferrous Sulfate] 325 mg PO DAILY 01/01/17 [History] LevETIRAcetam [Keppra] 750 mg PO BID 01/01/17 [History] Phenytoin [Dilantin] 300 mg PO Q12HR 01/01/17 [History] Allergies aspirin Adverse Reaction (Verified 01/01/17 00:53) Gastrointestinal Upset All Systems PM: A 10-system review of systems was performed and is negative for pertinent findings except as documented above in the HPI. - Constitutional Vitals: Temp Pulse Resp BP Pulse Ox 98.2 F 82 18 99/70 100 01/01/17 07:40 01/01/17 07:40 01/01/17 07:40 01/01/17 07:40 01/01/17 07:40 General appearance: Present: A&O X 3, no acute distress - Eye Eye exam: Present: PERRL, conjuntiva pink, sclera anicteric Pupils: Present: PERRL - Respiratory Respiratory exam: Present: CTAB. Absent: accessory muscle use, rales, rhonchi, wheezes - Cardiovascular Cardiovascular exam: Present: RRR, +S1, +S2. Absent: diastolic murmur, gallop, rubs, systolic murmur - GI/Abdominal GI/Abdominal exam: Present: normal bowel sounds, soft, no peritoneal signs. Absent: distended, tenderness - Extremities Exam Extremities exam: Present: warm, radial pulses palpable and symetrical. Absent : calf tenderness, cyanotic, pedal edema - Neurological Exam Neurological exam: Present: CN II-XII intact, oriented X3, no focal deficits. Absent: pronater drift, facial droop, speech deficit - Skin Skin exam: Present: dry, intact Internal Med - H&P Results - Labs CBC & Chem 7: 01/01/17 02:44 01/01/17 02:44
--- NOTE | 2017-01-01 10:16 | Neurology - Consult Note ---
Date of Encounter: 01/01/17 Time of Encounter: 10:09 Assessment and Plan (1) Generalized seizure Current Visit: No Status: Acute 31-year old woman with history of seizure disorder, on keppra and dilantin ( level 20.5), with seizures, likely secondary to cocaine ingestion. 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 May need further studies outpatient. No changes in medication for now. She is back to baseline and wants to go home. Outpatient MRI brain Outpatient EEG Outpatient Neurology Follow-up with Dr. Snell/Graciela Consider LRE evaluation at [facility] by monitoring or depth electrode placement, based on EEG findings. Call if questions. History of Present Illness Chief complaint: seizure HPI: Ms. Sullivan is a 31 year old female with prior history of seizures since childhood (age 4; GTC, tried on tegretol, dilantin and other medications), with prior history of drug abuse (cocaine; last use 3 months ago, per patient), admitted with multiple seizures yesterday. Apparently, the patient was in her future in-laws house and had been hanging out with them - and had tea with them. Apparently, her future [id number] who does not like her (because he made sexual advances to her and she rejected(?) it; he is also a drug abuser, per patient) was there as well. She states that she felt not good after the tea and started having multiple seizures and was taken to the ER here and admitted to the hospital. She states that she is taking her medications correctly and she is not having any problems. She states that she is back to baseline and wants to go home. Has no other complaints today. Dilantin was found to be therapeutic at 20.5. UDS showed benzo and cocaine. Past Med Surg Social Fam HX - Past Medical History Source: patient Medical history: seizures, other (drug abuse; cocaine; last use 3 months ago, per patient) Psychiatric history: no psych history - Past Surgical History Surgical History: cholecystectomy, other - Social History Smoking Status: Current every day smoker Smokeless Tobacco Status: No Alcohol use: occasionally Drug use: cocaine, opiates, IVDU, prescription drug abuse Occupational status: unemployed Current living situation: With Family (with fiance) Activity Level: Independent ambulation - Family History Mother Living Status: Still Living Hx Family Respiratory Disorders: Yes (Lung CA) Hx Family Neurologic Disorders: Yes (SEIZURES) Father Hx Family Cardiac Disorders: Yes Medications and Allergies Phenytoin ER [Dilantin ER] 300 mg PO BID 08/04/15 [History] LevETIRAcetam [Keppra] 500 mg PO BID #30 tablet 07/27/16 [Rx] Allergies aspirin Adverse Reaction (Verified 01/01/17 00:53) Gastrointestinal Upset All Systems: A 10-system review of systems was performed and is negative for pertinent findings except as documented above in the HPI. - Constitutional Constitutional ROS IM: as per HPI Physical Examination - Vital Signs Vital Signs: Initial Vital Signs Temp Pulse Resp BP Pulse Ox 98.1 F 93 16 122/63 93 01/01/17 00:57 01/01/17 00:57 01/01/17 00:57 01/01/17 00:57 01/01/17 00:57 Vital Signs - 24 hr 01/01/17 00:57 01/01/17 01:00 01/01/17 01:07 Temperature 98.1 F Pulse Rate 93 99 Respiratory Rate 16 16 Blood Pressure 122/63 124/84 O2 Sat by Pulse Oximetry 93 98 100 01/01/17 01:30 01/01/17 02:00 01/01/17 02:30 Temperature Pulse Rate 90 126 95 Respiratory Rate 16 24 18 Blood Pressure 115/75 139/82 119/83 O2 Sat by Pulse Oximetry 98 100 100 01/01/17 03:00 01/01/17 03:30 01/01/17 04:00 Temperature Pulse Rate 98 86 79 Respiratory Rate 20 20 20 Blood Pressure 109/75 108/77 96/52 O2 Sat by Pulse Oximetry 100 98 96 01/01/17 04:32 01/01/17 05:00 01/01/17 05:30 Temperature Pulse Rate 81 80 78 Respiratory Rate 20 20 20 Blood Pressure 99/54 92/46 95/58 O2 Sat by Pulse Oximetry 100 98 99 01/01/17 06:05 01/01/17 06:30 01/01/17 06:40 Temperature Pulse Rate 84 76 Respiratory Rate 18 20 18 Blood Pressure 104/61 98/65 98/65 O2 Sat by Pulse Oximetry 99 100 01/01/17 07:40 Temperature 98.2 F Pulse Rate 82 Respiratory Rate 18 Blood Pressure 99/70 O2 Sat by Pulse Oximetry 100 - Constitutional General appearance: comfortable, older than stated age - Neurologic Sensorimotor examination: intact Detailed motor examination: full strength in all major muscle groups Motor examination - right side: 11/19: deltoids, biceps, triceps, wrist flexion, wrist extension, distribution a class lineman, hip flexors, tibialis Anterior, quadriceps, toe extension (EHL), plantarflexion Motor examination - left side: 11/19: deltoids, biceps, triceps, wrist flexion, wrist extension, hip flexors, distribution a class lineman, quadriceps, tibialis Anterior, toe extension (EHL), plantarflexion Detailed sensory examination: intact Reflex and gait examination: intact (generalized hyper-reflexia) Reflexes: Biceps: 3+, Triceps: 3+, Brachioradialis: 3+, Patella: 3+, Achilles: 3 + (Up going toe on the left) Mental Status Examination: awake, alert, oriented to person, oriented to place, oriented to time, follows commands appropriately, answers questions appropriately, no agnosia, no aphasia, no aproxia Cranial nerve examination: PERRL (4 mm pupils), EOMI, visual ramirez intact, corneal reflexes brisk symmetrically, sensory to face intact, mastication intact , no facial asymmetry is present, no dysarthria, hearing is intact symmetrically , soft palate elevates bilaterally upon phonation, gag reflex intact, flexes SCM and trapezius muscles symmetrically with full power, tongue protrudes midline, no atrophy or facial fasiculations present Cerebellar examination: no dysmetria, performs finger to nose and heel to green symmetrically without ataxia, no gait ataxia, no truncal ataxia, no difficulty with rapid alternating movements Results - Laboratory Findings CBC and BMP: 01/01/17 02:44 01/01/17 02:44 Abnormal lab findings: Abnormal lab results Hgb 10.9 g/dL (11.5-15.4) L 01/01/17 02:44 Hct 34.4 % (35.3-44.9) L 01/01/17 02:44 MCV 82.7 fL (83.0-100.0) L 01/01/17 02:44 MCH 26.2 pg (28.0-33.3) L 01/01/17 02:44 RDW 17.5 % (11.5-14.5) H 01/01/17 02:44 Plt Count 557 K/mcL (140-400) H 01/01/17 02:44 MPV 9.1 fL (9.4-12.4) L 01/01/17 02:44 BUN 4 mg/dL (7-20) L 01/01/17 02:44 Creatine Kinase 25 Units/L (29-168) L 01/01/17 02:44 Albumin 3.4 g/dL (3.5-5.0) L 01/01/17 02:44 Globulin 3.7 g/dL (2.4-3.5) H 01/01/17 02:44 Albumin/Globulin Ratio 0.9 (1.1-2.2) L 01/01/17 02:44 Salicylates < 5.0 mg/dL (15-30) L 01/01/17 02:44 Acetaminophen < 1.0 mcg/mL (10-30) L 01/01/17 02:44 Phenytoin 20.5 mcg/mL (10-20) H 01/01/17 02:44 U Benzodiazepines Scrn Positive ng/mL (Qcocpc=335) H 01/01/17 03:00 Urine Cocaine Screen Positive ng/mL (Cutoff= 300) H 01/01/17 03:00 - Diagnostic Findings Additional findings: Lab Results 01/01/17 01/01/17 01/01/17 Range/Units 02:44 02:44 02:44 WBC 8.9 (4.3-11.1) K/mcL RBC 4.16 (3.82-4.97) M/mcL Hgb 10.9 L (11.5-15.4) g/dL Hct 34.4 L (35.3-44.9) % MCV 82.7 L (83.0-100.0) fL MCH 26.2 L (28.0-33.3) pg MCHC 31.7 (31.6-35.5) g/dL RDW 17.5 H (11.5-14.5) % Plt Count 557 H (140-400) K/mcL MPV 9.1 L (9.4-12.4) fL Immature Gran % 0.1 (0-4) % Seg Neutrophils % 52.8 % Lymphocytes % 35.3 % Monocytes % 8.7 % Eosinophils % 2.3 % Basophils % 0.8 % Neutrophils # 4.7 (1.6-8.9) K/mcL Lymphocytes # 3.1 (0.6-4.6) K/mcL Monocytes # 0.8 (0.0-1.3) K/mcL Eosinophils # 0.2 (0.0-0.6) K/mcL Basophils # 0.1 (0.0-0.2) K/mcL Immature Plt Fraction 1.6 (1.1-6.1) % Sodium 139 (136-145) mEq/L Potassium 3.7 (3.5-4.5) mEq/L Chloride 105 (98-109) mEq/L Carbon Dioxide 22 (19-29) mEq/L BUN 4 L (7-20) mg/dL Creatinine 0.63 (0.57-1.11) mg/dL Est GFR ( Amer) > 60 (> 60) Est GFR (Non-Af Amer) > 60 (> 60) BUN/Creatinine Ratio 6 (6-26) Glucose 91 (70-99) mg/dL Calculated Osmolality 284 (280-300) Calcium 9.5 (8.6-10.8) mg/dL Total Bilirubin 0.2 (0.2-1.2) mg/dL Direct Bilirubin 0.2 (0.0-0.5) mg/dL Indirect Bilirubin 0.0 (0.0-1.2) mg/dL AST 15 (5-34) Units/L ALT 13 (0-55) Units/L Alkaline Phosphatase 94 (38-126) Units/L Ammonia 28 (18-72) mcmol/L Creatine Kinase 25 L (29-168) Units/L Serum Total Protein 7.1 (6.0-8.3) g/dL Albumin 3.4 L (3.5-5.0) g/dL Globulin 3.7 H (2.4-3.5) g/dL Albumin/Globulin Ratio 0.9 L (1.1-2.2) Urine Color (Yellow) Urine Clarity (Clear) Urine pH (5.0-8.0) pH Units Ur Specific [place] (1.010-1.025) Urine Protein (Neg-Trace) mg/dL Urine Glucose (UA) (Normal) mg/dL Urine Ketones (Negative) mg/dL Urine Blood (Negative) Urine Nitrite (Negative) Urine Bilirubin (Negative) Urine Urobilinogen (Normal) mg/dL Ur Leukocyte Esterase (Negative) Ur Culture Indicated? (NO) Salicylates < 5.0 L (15-30) mg/dL Urine Opiates Screen (Rxacmn=083) ng/mL Acetaminophen < 1.0 L (10-30) mcg/mL Ur Barbiturates Screen (Jslicw=537) ng/mL Phenytoin (10-20) mcg/mL Ur Phencyclidine Scrn (Cutoff=25) ng/mL Ur Amphetamines Screen (Nppfaz=5934) ng/mL U Benzodiazepines Scrn (Nlbokx=764) ng/mL Urine Cocaine Screen (Cutoff= 300) ng/mL U Marijuana (THC) Screen (Cutoff = 50) ng/mL Ethyl Alcohol < 10 (0-10) mg/dL 01/01/17 01/01/17 01/01/17 Range/Units 02:44 03:00 03:00 WBC (4.3-11.1) K/mcL RBC (3.82-4.97) M/mcL Hgb (11.5-15.4) g/dL Hct (35.3-44.9) % MCV (83.0-100.0) fL MCH (28.0-33.3) pg MCHC (31.6-35.5) g/dL RDW (11.5-14.5) % Plt Count (140-400) K/mcL MPV (9.4-12.4) fL Immature Gran % (0-4) % Seg Neutrophils % % Lymphocytes % % Monocytes % % Eosinophils % % Basophils % % Neutrophils # (1.6-8.9) K/mcL Lymphocytes # (0.6-4.6) K/mcL Monocytes # (0.0-1.3) K/mcL Eosinophils # (0.0-0.6) K/mcL Basophils # (0.0-0.2) K/mcL Immature Plt Fraction (1.1-6.1) % Sodium (136-145) mEq/L Potassium (3.5-4.5) mEq/L Chloride (98-109) mEq/L Carbon Dioxide (19-29) mEq/L BUN (7-20) mg/dL Creatinine (0.57-1.11) mg/dL Est GFR ( Amer) (> 60) Est GFR (Non-Af Amer) (> 60) BUN/Creatinine Ratio (6-26) Glucose (70-99) mg/dL Calculated Osmolality (280-300) Calcium (8.6-10.8) mg/dL Total Bilirubin (0.2-1.2) mg/dL Direct Bilirubin (0.0-0.5) mg/dL Indirect Bilirubin (0.0-1.2) mg/dL AST (5-34) Units/L ALT (0-55) Units/L Alkaline Phosphatase (38-126) Units/L Ammonia (18-72) mcmol/L Creatine Kinase (29-168) Units/L Serum Total Protein (6.0-8.3) g/dL Albumin (3.5-5.0) g/dL Globulin (2.4-3.5) g/dL Albumin/Globulin Ratio (1.1-2.2) Urine Color Yellow (Yellow) Urine Clarity Clear (Clear) Urine pH 7.5 (5.0-8.0) pH Units Ur Specific [place] 1.016 (1.010-1.025) Urine Protein Negative (Neg-Trace) mg/dL Urine Glucose (UA) Normal (Normal) mg/dL Urine Ketones Negative (Negative) mg/dL Urine Blood Negative (Negative) Urine Nitrite Negative (Negative) Urine Bilirubin Negative (Negative) Urine Urobilinogen Normal (Normal) mg/dL Ur Leukocyte Esterase Negative (Negative) Ur Culture Indicated? NO (NO) Salicylates (15-30) mg/dL Urine Opiates Screen Negative (Yyfwim=194) ng/mL Acetaminophen (10-30) mcg/mL Ur Barbiturates Screen Negative (Iinqiy=580) ng/mL Phenytoin 20.5 H (10-20) mcg/mL Ur Phencyclidine Scrn Negative (Cutoff=25) ng/mL Ur Amphetamines Screen Negative (Lyuzoz=7215) ng/mL U Benzodiazepines Scrn Positive H (Ugutcx=420) ng/mL Urine Cocaine Screen Positive H (Cutoff= 300) ng/mL U Marijuana (THC) Screen Negative (Cutoff = 50) ng/mL Ethyl Alcohol (0-10) mg/dL Chest X-Ray 01/01/17 01:31 IMPRESSION: No acute process. D/ / Manny Min MD / Manny Min MD Interpreting Provider: Manny Min MD Head CT 01/01/17 01:58 IMPRESSION: No acute intracranial abnormality. D/ / Manny Min MD / Manny Min MD Interpreting Provider: Manny Min MD Consult Discharge Plan - Plan Referrals: NO,PCP [Primary Care Provider] -
[2017-01-01] MEDS ORDERED: *HR* LORazepam 2 MG/ML VIAL IVP PRN (10:18)
[2017-01-01] MEDS ORDERED: *HR* Heparin 5,000 UNIT/ML VIAL SQ SCH (14:00)
--- NOTE | 2017-01-01 17:55 | Discharge Summary ---
Date of Encounter: 01/01/17 Time of Encounter: 10:00 - Discharge Diagnosis (1) Generalized seizure Priority: Secondary Status: Acute (2) DVT prophylaxis Priority: Secondary Status: Acute (3) Status epilepticus Priority: Primary Status: Acute (4) Cocaine abuse Priority: Secondary Status: Acute - Discharge Medications Home Medications: Buprenorphine HCl/Naloxone HCl [Buprenorphin-Naloxon 8-2 mg Sl] 1 each SL BID [History] Ciprofloxacin HCl 750 mg PO BID 01/01/17 [History] Ferrous Sulfate [Ferrous Sulfate] 325 mg PO DAILY 01/01/17 [History] LevETIRAcetam [Keppra] 750 mg PO BID 01/01/17 [History] Phenytoin [Dilantin] 300 mg PO Q12HR 01/01/17 [History] Allergies/Adverse Reactions: Allergies aspirin Adverse Reaction (Verified 01/01/17 00:53) Gastrointestinal Upset Date of admission: 01/01/17 06:31 Primary care physician: PCP NO Consults: 01/01/17 10:07 Consult to Neurology [CONS] Routine Consulting Provider: Neurology [facility] Reason for Consult: Uncontrolled seizures Time Notified: 06:30 Call Completed: Yes - Patient Status Disposition: Left Against Medical Advice Condition: Serious Overall status at discharge: patient is progressing back to baseline - Discharge Instructions Follow Up With: NO,PCP [Primary Care Provider] - Forms: ED Satisfaction Letter Hospital course: Ms. Sullivan is a 31 year old female who was admited this morning after she had 5 seizures at home. During my examination she is awake alert and oriented 3. She received 1 mg of Ativan in the emergency department. She requires monitoring and treatment for further seizures. She was evaluated by neurology. She wants to leave the hospital AMA. I explained the risks of recurrent seizures, aspiration and . The patient signed the paperwork and left AGAINST MEDICAL ADVICE. - Time Spent with Patient Total time spent providing and/or coordinating discharge services: - Constitutional Vitals: Temp Pulse Resp BP Pulse Ox 98.2 F 82 18 99/70 100 01/01/17 07:40 01/01/17 07:40 01/01/17 07:40 01/01/17 07:40 01/01/17 07:40 General appearance: Present: A&O X 3, no acute distress - Cardiovascular Cardiovascular exam: Present: RRR, +S1, +S2. Absent: diastolic murmur, gallop, rubs, systolic murmur - Neurological Exam Neurological exam: Present: CN II-XII intact, oriented X3, no focal deficits. Absent: pronater drift, facial droop, speech deficit
== END 2017-01-01 11:11 | disposition left against medical advice (07) ==
LOC: 2NNU 00:49 → EMEROO 00:49 → 2NNU 06:36
PROVIDERS: ADMIT Hospitalist; ATTEND Internal Medicine

== ENCOUNTER 2017-03-18 12:27 | Inpatient (IN) ==
[2017-03-18 13:01] LABS: Basophils % 0.4 %; Eosinophils # 0.1 K/mcL (0.0-0.6); Eosinophils % 1.4 %; Hematocrit 46.3 % (35.3-44.9); Hemoglobin 15.7 g/dL (11.5-15.4); Immature Granulocytes % 0.2 % (0-4); Immature Platelets 1.7 % (1.1-6.1); Lymphocytes # 2.4 K/mcL (0.6-4.6); Lymphocytes % 26.2 %; Mean Corpuscular HGB Conc 33.9 g/dL (31.6-35.5); Mean Corpuscular Hemoglobin 28.2 pg (28.0-33.3); Mean Corpuscular Volume 83.3 fL (83.0-100.0); Mean Platelet Volume 8.9 fL (9.4-12.4); Monocytes # 0.7 K/mcL (0.0-1.3); Monocytes % 7.7 %; Neutrophils # 5.8 K/mcL (1.6-8.9); Platelet Count 350 K/mcL (140-400); Red Blood Count 5.56 M/mcL (3.82-4.97); Red Cell Distribution Width 16.1 % (11.5-14.5); Segmented Neutrophils % 64.1 %
[2017-03-18 13:08] LABS: INR 1.1; Prothrombin Time 11.8 Seconds (9.4-12.1)
--- NOTE | 2017-03-18 13:11 | Emergency Department Note ---
START Narrative - START START: I examined this patient and my medical decision-making was reviewed with the emergency medicine resident. I agree with the documented findings, disposition and treatment plan as described except to the extent set forth below. Patient seen with emergency medicine resident Marty Billy, Please see a copy of his note for details of the H&P, ED evaluation, management and disposition. I have independently evaluated the patient and confirmed appropriate portions of the history and physical exam. Briefly: A 31-year-old female brought in by her boyfriend for "seizure concerns of stroke". Patient has history of seizure disorderpresented to the ER at least 3 or 4 times prior for "seizures". He is on Keppra. She is also on Suboxone. Patient is awake and alert normal glucose ECS is 15. Labs and CT of the head are pending. Disposition pending. Provided 40 minutes of critical care services for this patient
[2017-03-18 13:13] LABS: Alanine Aminotransferase 24 Units/L (0-55); Albumin 4.2 g/dL (3.5-5.0); Alkaline Phosphatase 138 Units/L (38-126); Aspartate Amino Transferase 24 Units/L (5-34); BUN/Creatinine Ratio 11 (6-26); Bilirubin,Direct 0.2 mg/dL (0.0-0.5); Bilirubin,Indirect 0.3 mg/dL (0.0-1.2); Bilirubin,Total 0.5 mg/dL (0.2-1.2); Blood Urea Nitrogen 7 mg/dL (7-20); Calcium 9.5 mg/dL (8.6-10.8); Carbon Dioxide 23 mEq/L (19-29); Chloride 100 mEq/L (98-109); Globulin 4.4 g/dL (2.4-3.5); Glucose 125 mg/dL (70-99); Osmolality,Calculated 281 (280-300); Potassium 3.7 mEq/L (3.5-4.5); Sodium 136 mEq/L (136-145); Total Protein 8.6 g/dL (6.0-8.3); eGFR For African Americans > 60 (> 60); eGFR For Non-African Americans > 60 (> 60)
[2017-03-18 13:15] LABS: Ethanol < 10 mg/dL (0-10)
[2017-03-18 13:24] LABS: Platelet Clumps Few (Not Present)
[2017-03-18 13:25] LABS: Reactive Lymphocytes Present (Not Present)
--- NOTE | 2017-03-18 13:26 | Emergency Department Note ---
Disposition Clinical Impression: Phenytoin overdose of undetermined intent Qualifiers: Encounter type: initial encounter Qualified Code(s): T42.0X4A - Poisoning by hydantoin derivatives, undetermined, initial encounter Disposition: Admitted As Inpatient Condition: Critical Referrals: NONE,PCP [Primary Care Provider] - Forms: ED Satisfaction Letter Time of Disposition: 15:10 Altered Mental Status HPI - General Chief Complaint: ED Altered Mental Status Stated Complaint: 'think i had stroke/seizure" Time Seen by Provider: 03/18/17 12:43 Source: family Limitations: altered mental status, physical limitation Nursing Notes Reviewed: Yes Vital Signs Reviewed: Yes - History of Present Illness HPI Narrative: Ms. Sullivan, 31-year-old female, presents from home by POV with her boyfriend yelling at the hospital doors concern for seizure or stroke or something. Patient emergently brought back to the ER and assessed. Patient's boyfriend's bedside. He states that patient has a seizure history and his been having seizures every 1-2 days for, "a long time." Patient does have a history of illicit drug abuse however she denies any use in the past several days. Patient is able to answer direct questions. She denies any abuse or traumas. She states that her bruises are secondary to falls from her seizures. ROS: Positive: Nausea, vomiting, weakness Negative: Chest pain, palpitations, fever, chills, headache, abdominal pain, blood in her bowels or urine, dark black stools - Related Data Home Medications Medication Instructions Recorded Confirmed Phenytoin [Dilantin] 300 mg PO Q12HR 01/01/17 03/18/17 LevETIRAcetam [Keppra] 1,000 mg PO BID 03/18/17 03/18/17 clonazePAM [Klonopin] 2 mg PO BID 03/18/17 03/18/17 Allergies Allergy/AdvReac Type Severity Reaction Status Date / Time No Known Allergies Allergy Verified 01/23/17 11:57 All systems ED: reviewed and negative except as stated. Past Medical History - Past Medical History Medical history: Reports: migraine, seizures, other Surgical history: Reports: cholecystectomy, other Psychiatric history: Reports: no psych history HEALTHCARE OR MEDICAL history: Reports: no HEALTHCARE OR MEDICAL history - Social History Smoking Status: Current every day smoker Smokeless Tobacco Status: No Alcohol use: Reports: none Drug use: Reports: other Physical Exam Vital Signs Reviewed General: Patient is alert, oriented to self/place/but not situation. She appears to be confused and in emotional distress with no physical distress. HEENT: Head is normocephalic with right periorbital ecchymosis. Pupils enlarged , equally round, and minimally reactive to light. Extraocular motion intact. Horizontal nystagmus bilaterally present posterior pharynx without exudates or cobblestoning. Trachea midline. Cardiovascular: Heart regular rate and rhythm without clicks, rubs, gallops, or murmurs. No JVD. PMI nondisplaced. Bilateral radial posterior tibial pulses equal at 2/4. No pedal edema. Respiratory: Symmetric chest rise with good respiratory effort. Bilateral breath sounds are clear without wheezing, crackles, or rhonchi. Abdomen: Bowel sounds present normoactive x-4 quadrants. Abdomen is soft, nondistended, and nontender. No organomegaly noted. Musculoskeletal: Muscle strength 5/5 and symmetric bilaterally in upper and lower extremities. No pronator drift. Neuro: Cranial nerves II through XII without deficit. Sensation light touch intact. GCS 15. Skin: Patient has bruises along the extensor services of her arms and legs in multiple stages of healing. There are what appear to be needle pimentel on the dorsum of right hand and right before meals joint Psych: Patient's affect is not appropriate for situation. - General Limitations: altered mental status, physical limitation General appearance: anxious, lethargic, in distress Course Course Narrative: yelling at the hospital doors concern for seizure or stroke or something. Patient emergently brought back to the ER and assessed. Initially, patient mentions being on Suboxone. She then denied having been on Suboxone for some time. OARRS report pulled by [employer] shows a suboxone prescriptio 2016 for 14 days. Additionally, patient has track pimentel on the dorsum of her right hand as well as right before meals joint. She denies any illicit substances. Overall, patient appears to be mildly combative, confused, has horizontal nystagmus, she has urinated herself, she has emesis on her clothing. Her skin is pale and diaphoretic. Pupils dilated with minimal reactivity. Oral mucosa moist. Vital signs at this time are stable. She is able to protect her airway. She is following commands. She is neuromuscularly intact at the toe. She does have a past medical history of seizure disorder for which she takes Keppra and phenytoin. Will obtain those levels. Her boyfriend who is at bedside, patient has seizures every 1-2 days. Her next appointment with her neurologist, Dr. Héctor Bill of [place], is in one month. Portal chest x-ray negative for acute cardiopulmonary process. CT head negative for acute intracranial normality. Serum hematology and chemistry grossly unremarkable. Patient has elevated phenytoin level of 88.1. This is more than double the toxic level. I spoke with [facility] Stef almanzar, who recommended supportive therapy at this time. Per his recommendations, will check phenytoin levels every 4 hours until a downward trend is established. After that time, we will check phenytoin levels daily until therapeutic. He does not recommend charcoal at this time is only difficult to re-dose and restart the patient on her Keppra and Dilantin. Because the boyfriend, patient's phenytoin dose was changed presently 5 months ago. She may be mixing up different strength of her Dilantin. He is uncertain. However, reportedly, she has not had a gradual onset of symptoms but rather abrupt. I provided the patient with IV Zofran. She develops mild urticaria in the venous distribution of the IV in which it was administered. No other systemic signs or symptoms. We will continue to monitor. Patient accepted to the ICU where she may receive hemodialysis. I spoke with nephrology who also recommended safe 5 mm/h of half-normal saline to encourage her to urinate to excrete the phenytoin. Chest X-Ray 03/18/17 12:31 IMPRESSION: No acute cardiopulmonary disease. D/ / Rao Lu MD / Rao Lu MD Interpreting Provider: Rao Lu MD Head CT 03/18/17 12:32 IMPRESSION: No acute intracranial abnormality. D/ / Edilberto Hay MD / Edilberto Hay MD Interpreting Provider: Edilberto Hay MD Vital Signs Temperature 97.3 F L 03/18/17 12:31 Pulse Rate 84 03/18/17 12:31 Respiratory Rate 22 03/18/17 12:31 Blood Pressure 135/114 03/18/17 12:31 O2 Sat by Pulse Oximetry 98 03/18/17 12:31 Temperature 97.3 F L 03/18/17 12:31 Pulse Rate 80 03/18/17 14:28 Respiratory Rate 16 03/18/17 14:28 Blood Pressure 120/97 03/18/17 14:28 O2 Sat by Pulse Oximetry 98 03/18/17 14:28 Oxygen Delivery Oxygen Delivery Room Air Altered Mental Status - Medical Records Medical records reviewed: Yes I reviewed the patient's medical records. - Lab Data Lab results reviewed: Yes I reviewed the patient's lab results. Result diagrams: 03/18/17 12:48 03/18/17 12:48 Lab Results 03/18/17 03/18/17 03/18/17 Range/Units 12:48 12:48 12:48 WBC 9.1 (4.3-11.1) K/mcL RBC 5.56 H (3.82-4.97) M/mcL Hgb 15.7 H (11.5-15.4) g/dL Hct 46.3 H (35.3-44.9) % MCV 83.3 (83.0-100.0) fL MCH 28.2 (28.0-33.3) pg MCHC 33.9 (31.6-35.5) g/dL RDW 16.1 H (11.5-14.5) % Plt Count 350 (140-400) K/mcL MPV 8.9 L (9.4-12.4) fL Immature Gran % 0.2 (0-4) % Seg Neutrophils % 64.1 % Lymphocytes % 26.2 % Monocytes % 7.7 % Eosinophils % 1.4 % Basophils % 0.4 % Neutrophils # 5.8 (1.6-8.9) K/mcL Lymphocytes # 2.4 (0.6-4.6) K/mcL Monocytes # 0.7 (0.0-1.3) K/mcL Eosinophils # 0.1 (0.0-0.6) K/mcL Basophils # 0.0 (0.0-0.2) K/mcL Reactive Lymphocytes Present A (Not Present) Clumped Platelets Few A (Not Present) Immature Plt Fraction 1.7 (1.1-6.1) % PT 11.8 (9.4-12.1) Seconds INR 1.1 Sodium 136 (136-145) mEq/L Potassium 3.7 (3.5-4.5) mEq/L Chloride 100 (98-109) mEq/L Carbon Dioxide 23 (19-29) mEq/L BUN 7 (7-20) mg/dL Creatinine 0.66 (0.57-1.11) mg/dL Est GFR ( Amer) > 60 (> 60) Est GFR (Non-Af Amer) > 60 (> 60) BUN/Creatinine Ratio 11 (6-26) Glucose 125 H (70-99) mg/dL Calculated Osmolality 281 (280-300) Calcium 9.5 (8.6-10.8) mg/dL Total Bilirubin 0.5 (0.2-1.2) mg/dL Direct Bilirubin 0.2 (0.0-0.5) mg/dL Indirect Bilirubin 0.3 (0.0-1.2) mg/dL AST 24 (5-34) Units/L ALT 24 (0-55) Units/L Alkaline Phosphatase 138 H (38-126) Units/L Serum Total Protein 8.6 H (6.0-8.3) g/dL Albumin 4.2 (3.5-5.0) g/dL Globulin 4.4 H (2.4-3.5) g/dL Albumin/Globulin Ratio 1.0 L (1.1-2.2) Serum , Qual (Negative) Salicylates < 5.0 L (15-30) mg/dL Acetaminophen < 1.0 L (10-30) mcg/mL Phenytoin (10-20) mcg/mL Ethyl Alcohol < 10 (0-10) mg/dL 03/18/17 03/18/17 Range/Units 12:48 12:48 WBC (4.3-11.1) K/mcL RBC (3.82-4.97) M/mcL Hgb (11.5-15.4) g/dL Hct (35.3-44.9) % MCV (83.0-100.0) fL MCH (28.0-33.3) pg MCHC (31.6-35.5) g/dL RDW (11.5-14.5) % Plt Count (140-400) K/mcL MPV (9.4-12.4) fL Immature Gran % (0-4) % Seg Neutrophils % % Lymphocytes % % Monocytes % % Eosinophils % % Basophils % % Neutrophils # (1.6-8.9) K/mcL Lymphocytes # (0.6-4.6) K/mcL Monocytes # (0.0-1.3) K/mcL Eosinophils # (0.0-0.6) K/mcL Basophils # (0.0-0.2) K/mcL Reactive Lymphocytes (Not Present) Clumped Platelets (Not Present) Immature Plt Fraction (1.1-6.1) % PT (9.4-12.1) Seconds INR Sodium (136-145) mEq/L Potassium (3.5-4.5) mEq/L Chloride (98-109) mEq/L Carbon Dioxide (19-29) mEq/L BUN (7-20) mg/dL Creatinine (0.57-1.11) mg/dL Est GFR ( Amer) (> 60) Est GFR (Non-Af Amer) (> 60) BUN/Creatinine Ratio (6-26) Glucose (70-99) mg/dL Calculated Osmolality (280-300) Calcium (8.6-10.8) mg/dL Total Bilirubin (0.2-1.2) mg/dL Direct Bilirubin (0.0-0.5) mg/dL Indirect Bilirubin (0.0-1.2) mg/dL AST (5-34) Units/L ALT (0-55) Units/L Alkaline Phosphatase (38-126) Units/L Serum Total Protein (6.0-8.3) g/dL Albumin (3.5-5.0) g/dL Globulin (2.4-3.5) g/dL Albumin/Globulin Ratio (1.1-2.2) Serum , Qual Negative (Negative) Salicylates (15-30) mg/dL Acetaminophen (10-30) mcg/mL Phenytoin 88.1 H* (10-20) mcg/mL Ethyl Alcohol (0-10) mg/dL - Radiology Data Radiology results reviewed: Yes I reviewed the patient's radiology results. - EKG Data EKG attestation: Yes I reviewed and interpreted this EKG. EKG results narrative: EKG dated 18 Mar 2017 interpreted as sinus rhythm with rate of 87. Normal intervals. Normal axis. Nonspecific ST-T changes. Compared to previous dated 01/23/2017 showing no acute ischemic changes. Isolated T-wave inversion present in V1 also present on previous EKG. TPA Checklist - LKW: 3-4.5 hrs Add. Warnings/Precautions Patient/family understanding: The patient/family members have been counseled and understood the risk, benefit , and alternatives of treatment.
[2017-03-18] MEDS ORDERED: Ondansetron 4 MG/2 ML VIAL IVP ONE (13:38)
[2017-03-18 14:29] LABS: Acetaminophen < 1.0 mcg/mL (10-30); Salicylate < 5.0 mg/dL (15-30)
--- NOTE | 2017-03-18 16:19 | Pulmonology History & Physical ---
<Vasyl Willett M - Last Filed: 03/18/17 16:28> Date of Encounter: 03/18/17 History of Present Illness HPI: Ms. Sullivan is a 31 year old female Medications and Allergies Phenytoin [Dilantin] 300 mg PO Q12HR 01/01/17 [History] LevETIRAcetam [Keppra] 1,000 mg PO BID 03/18/17 [History] clonazePAM [Klonopin] 2 mg PO BID 03/18/17 [History] 3 Allergy/AdvReac Type Severity Reaction Status Date / Time No Known Allergies Allergy Verified 01/23/17 11:57 All Systems: A 10-system review of systems was performed and is negative for pertinent findings except as documented above in the HPI. Results - Laboratory Findings CBC and BMP: 03/18/17 12:48 03/18/17 12:48 PT/INR, D-dimer PT 11.8 Seconds (9.4-12.1) 03/18/17 12:48 Abnormal lab findings: Abnormal lab results RBC 5.56 M/mcL (3.82-4.97) H 03/18/17 12:48 Hgb 15.7 g/dL (11.5-15.4) H 03/18/17 12:48 Hct 46.3 % (35.3-44.9) H 03/18/17 12:48 RDW 16.1 % (11.5-14.5) H 03/18/17 12:48 MPV 8.9 fL (9.4-12.4) L 03/18/17 12:48 Reactive Lymphocytes Present (Not Present) A 03/18/17 12:48 Clumped Platelets Few (Not Present) A 03/18/17 12:48 Glucose 125 mg/dL (70-99) H 03/18/17 12:48 Alkaline Phosphatase 138 Units/L (38-126) H 03/18/17 12:48 Serum Total Protein 8.6 g/dL (6.0-8.3) H 03/18/17 12:48 Globulin 4.4 g/dL (2.4-3.5) H 03/18/17 12:48 Albumin/Globulin Ratio 1.0 (1.1-2.2) L 03/18/17 12:48 Salicylates < 5.0 mg/dL (15-30) L 03/18/17 12:48 Acetaminophen < 1.0 mcg/mL (10-30) L 03/18/17 12:48 Phenytoin 88.1 mcg/mL (10-20) H* 03/18/17 12:48 - Attending Attestation I examined this patient and my medical decision-making was reviewed with the Resident Physician. I agree with the documented findings, disposition and treatment plan as described except to the extent set forth below. Patient seen and examined. Labs, radiology, chart personally reviewed. 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 Phenytoin level needs to be monitored every 4 hours and I have consulted nephrology for an evaluation due to obvious toxicity clinically from horizontal nystagmus. Pulmonary: Acceptable oxygenation and ventilation. Patient is at risk of respiratory failure and needs to be monitored closely in ICU Cardiovascular: stable GI: Nutrition per dietary and GI prophylaxis per routine. Patient needs to stay nothing by mouth Heme: DVT prophylaxis per routine ID: No evidence of infection Renal; urine out put and renal funtion reviewed. Nephrology to see patient Endorcine: blood glucose is monitored Lines: all lines checked and no evidence of infections Skin: skin care to prevent pressure ulcers per nursing routine care Patient needs to be monitored in ICU for potential complications <Edilberto Odell - Last Filed: 03/18/17 17:43> Date of Encounter: 03/18/17 Time of Encounter: 16:19 Assessment and Plan (1) Phenytoin overdose Current visit: Yes Status: Acute Continue IVF at 125cc/hr, nephrology consulted. May require intubation/ dialysis if condition declines. Continue seizure precautions. Psych consulted. Current Dilantin level 88.1, repeat Dilantin level ordered q4h. Continue symptomatic management per poison control center. Qualifiers: Injury intent: intentional self-harm Qualified Code(s): T42.0X2A - Poisoning by hydantoin derivatives, intentional self-harm, initial encounter (2) Suicide attempt Current visit: Yes Status: Acute Bedside sitter ordered. Psych consulted (3) Acute encephalopathy Current visit: Yes Status: Acute Secondary to Dilantin overdose. Ct brain negative. (4) Seizure disorder Current visit: Yes Status: Acute Continue seizure precautions. Monitor Dilantin levels. (5) DVT prophylaxis Current visit: No Status: Acute Lovenox Subq daily History of Present Illness Chief complaint: AMS HPI: Ms. Sullivan is a 31 year old female with PMH of seizure disorder and IVDU that presented with AMS, N/V, and tachycardia after intentional suicide attempt by Dilantin overdose. Also takes Keppra for seizure disorder. Patient is a very poor historian and most information was obtained from the medical record. She is protecting her airway and was not intubated in the ED. EKG unremarkable. Current Dilantin level 88.1, repeat Dilantin level ordered q4h. Continue symptomatic management per poison control center. Past Med Surg Social Fam HX - Past Medical History Medical history: migraine, seizures, other Psychiatric history: no psych history - Past Surgical History Surgical History: cholecystectomy, other - Social History Smoking Status: Current every day smoker Smokeless Tobacco Status: No Alcohol use: none Drug use: other - Family History Mother Living Status: Still Living Hx Family Respiratory Disorders: Yes (Lung CA) Hx Family Neurologic Disorders: Yes (SEIZURES) Father Hx Family Cardiac Disorders: Yes ROS unobtainable: due to mental status Physical Examination General appearance: appears uncomfortable, other (restless, disheveled, multiple abrasions and bruises on body, answers questions) Eyes: nonicteric, other (horizontal nystagmus) Neck: supple, no lymphadenopathy, no JVD Effort: normal Inspection: normal Auscultation: bilateral: clear Cardiovascular: regular rate and rhythm Gastrointestinal: normoactive bowel sounds, soft, non-tender, non-distended Integumentary: other (multiple bruises, no active bleeding) Extremities: no edema, pink and warm, pulses normal Musculoskeletal: ROM normal Gait: normal gait non-focal exam, other (altered mental status) anxious, other (restless) Results - Laboratory Findings CBC and BMP: 03/18/17 12:48 03/18/17 12:48 PT/INR, D-dimer PT 11.8 Seconds (9.4-12.1) 03/18/17 12:48 Abnormal lab findings: Abnormal lab results RBC 5.56 M/mcL (3.82-4.97) H 03/18/17 12:48 Hgb 15.7 g/dL (11.5-15.4) H 03/18/17 12:48 Hct 46.3 % (35.3-44.9) H 03/18/17 12:48 RDW 16.1 % (11.5-14.5) H 03/18/17 12:48 MPV 8.9 fL (9.4-12.4) L 03/18/17 12:48 Reactive Lymphocytes Present (Not Present) A 03/18/17 12:48 Clumped Platelets Few (Not Present) A 03/18/17 12:48 Glucose 125 mg/dL (70-99) H 03/18/17 12:48 Alkaline Phosphatase 138 Units/L (38-126) H 03/18/17 12:48 Serum Total Protein 8.6 g/dL (6.0-8.3) H 03/18/17 12:48 Globulin 4.4 g/dL (2.4-3.5) H 03/18/17 12:48 Albumin/Globulin Ratio 1.0 (1.1-2.2) L 03/18/17 12:48 Salicylates < 5.0 mg/dL (15-30) L 03/18/17 12:48 Acetaminophen < 1.0 mcg/mL (10-30) L 03/18/17 12:48 Phenytoin 88.1 mcg/mL (10-20) H* 03/18/17 12:48 - Diagnostic Findings Chest x-ray: report reviewed, image reviewed
--- NOTE | 2017-03-18 17:55 | Nephrology Consult Note ---
Date of Encounter: 03/18/17 Time of Encounter: 17:54 Assessment and Plan (1) Phenytoin overdose Status: Acute IVF for volume expansion Symptomatic care If she were to become severely comatose then would arrange for HD for clearance Discussed with pt and her boyfriend as seen in the ICU. I discussed the potential for high risk in this pt with overodose. Thank you Qualifiers: Encounter type: subsequent encounter Injury intent: accidental or unintentional Qualified Code(s): T42.0X1D - Poisoning by hydantoin derivatives , accidental (unintentional), subsequent encounter (2) Acute encephalopathy Status: Acute Should improve as the OD resolved with IVF (3) Seizure disorder Status: Chronic As per primary History of Present Illness - Reason for Consult Consult date: 03/18/17 Acute Kidney Injury Requesting physician: Vasyl Willett - Chief Complaint Phenytoin toxicity and question of HD needs - History of Present Illness 31 year old female with PMH of seizure disorder and IVDU that presented with AMS , N/V, and tachycardia after intentional suicide attempt by Dilantin overdose. She was seen in the ICU and was altered but able to speak. She reported having several fails with dizziness and N/V. She denied NSAID use. She denied ever having seen a prior size changer. 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 Further history was limited d/t her AMS. Past Med Surg Social Fam HX - Past Medical History Medical history: migraine, seizures, other Psychiatric history: no psych history - Past Surgical History Surgical History: cholecystectomy, other - Social History Smoking Status: Current every day smoker Smokeless Tobacco Status: No Alcohol use: none Drug use: other - Family History Mother Living Status: Still Living Hx Family Respiratory Disorders: Yes (Lung CA) Hx Family Neurologic Disorders: Yes (SEIZURES) Father Hx Family Cardiac Disorders: Yes Medications and Allergies Phenytoin [Dilantin] 300 mg PO Q12HR 01/01/17 [History] LevETIRAcetam [Keppra] 1,000 mg PO BID 03/18/17 [History] clonazePAM [Klonopin] 2 mg PO BID 03/18/17 [History] 3 Allergy/AdvReac Type Severity Reaction Status Date / Time No Known Allergies Allergy Verified 01/23/17 11:57 Review of Systems ROS unobtainable: due to mental status Exam - Vital Signs Vital signs: Initial Vital Signs Temp Pulse Resp BP Pulse Ox 97.3 F L 84 22 135/114 98 03/18/17 12:31 03/18/17 12:31 03/18/17 12:31 03/18/17 12:31 03/18/17 12:31 Vital Signs - Last 8 Hours Resp BP 03/18/17 16:36 18 136/71 - General Appearance General appearance: well-developed, appears started age, cachectic EENT: ATNC, PERRL, mucous membranes moist Neck: supple Respiratory: clear Cardiology: no murmurs, no edema, regular rate, regular rhythm, normal S1, normal S2 Gastrointestinal: normoactive bowel sounds, no tenderness, no guarding, no masses Integumentary: no rash, warm and dry Neurologic: no asterixis, disoriented Musculoskeletal: no erythema, no cyanosis Psychiatric: cooperative Results - Lab Results 03/22/17 04:28 03/22/17 04:28 Most recent lab results Calcium 9.5 mg/dL (8.6-10.8) 03/18/17 12:48 I reviewed the above data ramirez and progress notes, labs, meds, vitals and I/ Os and imaging. Consult Discharge Plan - Plan Instructions: Cocaine Abuse (GEN), Non-epileptic Seizures (GEN), Dilantin Toxicity (GEN) Additional Instructions: Please be sure to follow up with your primary care physician and neurologist regarding your medication dosages, seizures. Also please be very careful and clear with your doctor about the correct dosage you should be taking each day. Referrals: [facility] [Outside] - 03/28/17 10:00 am (Please follow up as scheduled)
[2017-03-18] MEDS: Famotidine 20 MG/2 ML VIAL IVP SCH (17:57)
[2017-03-18] MEDS: 0.9 % Sodium Chloride 1,000 ML IVC SCH (17:57)
[2017-03-18] MEDS: Ondansetron 4 MG/2 ML VIAL IVP SCH (19:22)
[2017-03-19] MEDS: 0.9 % Sodium Chloride 1,000 ML IVC SCH ×3 (01:16→16:27)
[2017-03-19] MEDS: Ondansetron 4 MG/2 ML VIAL IVP SCH ×4 (01:17→18:02)
[2017-03-19 04:55] LABS: Basophils % 0.4 %; Eosinophils # 0.2 K/mcL (0.0-0.6); Eosinophils % 2.1 %; Hematocrit 43.5 % (35.3-44.9); Hemoglobin 14.3 g/dL (11.5-15.4); Immature Granulocytes % 0.3 % (0-4); Lymphocytes # 2.8 K/mcL (0.6-4.6); Lymphocytes % 39.9 %; Mean Corpuscular HGB Conc 32.9 g/dL (31.6-35.5); Mean Corpuscular Volume 85.1 fL (83.0-100.0); Mean Platelet Volume 8.2 fL (9.4-12.4); Monocytes # 0.5 K/mcL (0.0-1.3); Monocytes % 6.6 %; Neutrophils # 3.6 K/mcL (1.6-8.9); Platelet Count 329 K/mcL (140-400); Red Blood Count 5.11 M/mcL (3.82-4.97); Red Cell Distribution Width 16.3 % (11.5-14.5); Segmented Neutrophils % 50.7 %
[2017-03-19 05:05] LABS: Bilirubin,Urine Small (Negative); Blood,Urine Negative (Negative); Clarity,Urine Cloudy (Clear); Color,Urine Yellow (Yellow); Glucose,Urine (UA) Normal (Normal); Ketones,Urine 15 mg/dL (Negative); Leukocyte Esterase,Urine Negative (Negative); Nitrite,Urine Negative (Negative); Protein,Urine Negative (Neg-Trace); Specific Gravity,Urine 1.019 (1.010-1.025); Urobilinogen,Urine Normal (Normal)
[2017-03-19 05:06] LABS: Amphetamine Screen,Urine Negative ng/mL (Cutoff=1000); Barbiturate Screen,Urine Negative ng/mL (Cutoff=200); Benzodiazepines Screen,Urine Negative ng/mL (Cutoff=200); Cannabinoid Screen,Urine Negative ng/mL (Cutoff = 50); Cocaine Screen,Urine Positive ng/mL (Cutoff= 300); Opiate Screen,Urine Negative ng/mL (Cutoff=300); Phencyclidine Screen,Urine Negative ng/mL (Cutoff=25)
[2017-03-19 05:07] LABS: Alanine Aminotransferase 19 Units/L (0-55); Albumin 3.7 g/dL (3.5-5.0); Alkaline Phosphatase 124 Units/L (38-126); Aspartate Amino Transferase 18 Units/L (5-34); BUN/Creatinine Ratio 11 (6-26); Bilirubin,Total 0.5 mg/dL (0.2-1.2); Blood Urea Nitrogen 7 mg/dL (7-20); Carbon Dioxide 24 mEq/L (19-29); Chloride 103 mEq/L (98-109); Globulin 3.8 g/dL (2.4-3.5); Glucose 68 mg/dL (70-99); Osmolality,Calculated 282 (280-300); Potassium 3.6 mEq/L (3.5-4.5); Sodium 138 mEq/L (136-145); Total Protein 7.5 g/dL (6.0-8.3); eGFR For African Americans > 60 (> 60); eGFR For Non-African Americans > 60 (> 60)
[2017-03-19 05:08] LABS: Bacteria,Urine Many per hpf (None-Few); Hyaline Casts,Urine None Seen per lpf (None-Few); RBC,Urine 0-3 per hpf (0-3); Squamous Epithelial Cell,Urine Many per lpf (None-Few)
[2017-03-19] MEDS: *HR* Enoxaparin 40 MG/0.4 ML SYRINGE SQ SCH (06:11)
[2017-03-19] MEDS: Famotidine 20 MG/2 ML VIAL IVP SCH ×2 (06:11→18:02)
--- NOTE | 2017-03-19 09:35 | Pulmonology Progress Note ---
<Vasyl Willett M - Last Filed: 03/19/17 09:35> Date of Encounter: 03/19/17 Objective PUL Vital signs: Last Vital Signs Temp 97.6 F 03/19/17 07:00 Pulse 85 03/19/17 09:00 Resp 12 03/19/17 09:00 BP 119/76 03/19/17 09:00 Pulse Ox 95 03/19/17 09:00 Results - Laboratory Findings CBC and BMP: 03/19/17 04:44 03/19/17 04:44 PT/INR, D-dimer PT 11.8 Seconds (9.4-12.1) 03/18/17 12:48 Abnormal lab findings: Abnormal lab results RBC 5.11 M/mcL (3.82-4.97) H 03/19/17 04:44 RDW 16.3 % (11.5-14.5) H 03/19/17 04:44 MPV 8.2 fL (9.4-12.4) L 03/19/17 04:44 Reactive Lymphocytes Present (Not Present) A 03/18/17 12:48 Clumped Platelets Few (Not Present) A 03/18/17 12:48 Glucose 68 mg/dL (70-99) L 03/19/17 04:44 POC Glucose 137 (58-89) H 03/18/17 16:54 Globulin 3.8 g/dL (2.4-3.5) H 03/19/17 04:44 Albumin/Globulin Ratio 1.0 (1.1-2.2) L 03/19/17 04:44 Urine Clarity Cloudy (Clear) A 03/19/17 04:25 Urine Ketones 15 mg/dL (Negative) H 03/19/17 04:25 Urine Bilirubin Small (Negative) H 03/19/17 04:25 Urine Microscopic WBC 3-5 per hpf (0-3) H 03/19/17 04:25 Ur Squamous Epith Cells Many per lpf (None-Few) H 03/19/17 04:25 Urine Bacteria Many per hpf (None-Few) H 03/19/17 04:25 Salicylates < 5.0 mg/dL (15-30) L 03/18/17 12:48 Acetaminophen < 1.0 mcg/mL (10-30) L 03/18/17 12:48 Phenytoin 63.6 mcg/mL (10-20) H* 03/19/17 08:21 Urine Cocaine Screen Positive ng/mL (Cutoff= 300) H 03/19/17 04:25 - Clinical Findings Intake & Output: Intake & Output 03/18/17 03/19/17 03/19/17 23:59 07:59 15:59 Intake Total 1000 / 1000 1600 / 1600 Output Total 0 / 0 Balance 1000 / 1000 1600 / 1600 Weight 64.864 kg 66.6 kg Consult Discharge Plan - Plan Referrals: NONE,PCP [Primary Care Provider] - - Attending Attestation I examined this patient and my medical decision-making was reviewed with the Resident Physician. I agree with the documented findings, disposition and treatment plan as described except to the extent set forth below. Patient seen and examined. Labs, radiology, chart personally reviewed. Agree with resident's history and physical, assessment, plan with following comments: PRODUCTION MANAGER: Patient follows commands, she is more awake today and there is no evidence of horizontal nystagmus. Phenytoin level remain elevated and we will continue to monitor in ICU. Pulmonary: Acceptable oxygenation and ventilation Cardiovascular: stable GI: Nutrition per dietary and GI prophylaxis per routine Heme: DVT prophylaxis per routine Renal; urine out put and renal funtion reviewed Endorcine: blood glucose is monitored Lines: all lines checked and no evidence of infections Skin: skin care to prevent pressure ulcers per nursing routine care Psych: when phenytoin level is normalized she will need psych evaluation <Maegan Hope - Last Filed: 03/19/17 09:47> Date of Encounter: 03/19/17 Time of Encounter: 07:45 Assessment and Plan (1) Phenytoin overdose Current Visit: Yes Status: Acute Monitoring level every 4 hours. Last level was 63.6 and continues to go down. Nephro consulted as well but no need for dialysis at this point. Basic lab work WNL. Patient no longer has horizontal nystagmus on physical exam. Patient is A& Ox3. Qualifiers: Injury intent: intentional self-harm Qualified Code(s): T42.0X2A - Poisoning by hydantoin derivatives, intentional self-harm, initial encounter (2) Suicide attempt Current Visit: Yes Status: Acute Patient still unable to be medically cleared due to dilantin level. Once this level in WNL we will consult 1A to obtain a psychiatric evaluation. Has a sitter in the room. (3) Seizure disorder Current Visit: Yes Status: Acute Will continue to monitor dilantin level. Seizure precautions in place in the room. (4) DVT prophylaxis Current Visit: No Status: Acute Patient currently on lovenox Subjective Interval history: No acute episodes overnight. Patient A&Ox3. No longer has horizontal nystagmus. Patient will be put on a regular diet and has a sitter in the room due to possible suicide attempt. Once dilantin level in WNL we will consult 1A to assess the patient. Objective PUL Vital signs: Last Vital Signs Temp 97.6 F 03/19/17 07:00 Pulse 85 03/19/17 09:00 Resp 12 03/19/17 09:00 BP 119/76 03/19/17 09:00 Pulse Ox 95 03/19/17 09:00 General appearance: no acute distress, alert Eyes: nonicteric ENT: oropharynx moist Neck: supple, no JVD Effort: normal Auscultation: bilateral: clear Cardiovascular: regular rate and rhythm Gastrointestinal: normoactive bowel sounds, soft, non-tender Integumentary: normal Extremities: no cyanosis, no edema, no clubbing Musculoskeletal: no deformities Gait: normal posture normal mental status, non-focal exam mood appropriate, affect normal Results - Laboratory Findings CBC and BMP: 03/19/17 04:44 03/19/17 04:44 PT/INR, D-dimer PT 11.8 Seconds (9.4-12.1) 03/18/17 12:48 Abnormal lab findings: Abnormal lab results RBC 5.11 M/mcL (3.82-4.97) H 03/19/17 04:44 RDW 16.3 % (11.5-14.5) H 03/19/17 04:44 MPV 8.2 fL (9.4-12.4) L 03/19/17 04:44 Reactive Lymphocytes Present (Not Present) A 03/18/17 12:48 Clumped Platelets Few (Not Present) A 03/18/17 12:48 Glucose 68 mg/dL (70-99) L 03/19/17 04:44 POC Glucose 137 (58-89) H 03/18/17 16:54 Globulin 3.8 g/dL (2.4-3.5) H 03/19/17 04:44 Albumin/Globulin Ratio 1.0 (1.1-2.2) L 03/19/17 04:44 Urine Clarity Cloudy (Clear) A 03/19/17 04:25 Urine Ketones 15 mg/dL (Negative) H 03/19/17 04:25 Urine Bilirubin Small (Negative) H 03/19/17 04:25 Urine Microscopic WBC 3-5 per hpf (0-3) H 03/19/17 04:25 Ur Squamous Epith Cells Many per lpf (None-Few) H 03/19/17 04:25 Urine Bacteria Many per hpf (None-Few) H 03/19/17 04:25 Salicylates < 5.0 mg/dL (15-30) L 03/18/17 12:48 Acetaminophen < 1.0 mcg/mL (10-30) L 03/18/17 12:48 Phenytoin 63.6 mcg/mL (10-20) H* 03/19/17 08:21 Urine Cocaine Screen Positive ng/mL (Cutoff= 300) H 03/19/17 04:25 - Clinical Findings Intake & Output: Intake & Output 03/18/17 03/19/17 03/19/17 23:59 07:59 15:59 Intake Total 1000 / 1000 1600 / 1600 Output Total 0 / 0 Balance 1000 / 1000 1600 / 1600 Weight 64.864 kg 66.6 kg
--- NOTE | 2017-03-19 10:31 | Nephrology Progress Note ---
Date of Encounter: 03/19/17 Time of Encounter: 10:30 - Assessment and Plan (1) Phenytoin overdose Status: Acute Levels are trending down and she is A/Ox3. SCr remains intact. No urgent indications for INFORMATION SECURITY RISK ANALYST today. Will follow with you. Qualifiers: Encounter type: subsequent encounter Injury intent: accidental or unintentional Qualified Code(s): T42.0X1D - Poisoning by hydantoin derivatives , accidental (unintentional), subsequent encounter (2) Acute encephalopathy Status: Acute Improving (3) Seizure disorder Status: Chronic As per primary Subjective Principal diagnosis: OD Interval history: Pt was s/e and she did not affirm N/V/D and said that she is becoming more and more alert. Objective - Vital Signs Vital signs: Vital Signs Temp Pulse Resp BP Pulse Ox 03/19/17 10:00 97.6 F 79 12 123/91 98 03/19/17 09:00 85 12 119/76 95 03/19/17 08:00 71 03/19/17 07:51 71 12 103/77 95 03/19/17 07:00 97.6 F 74 12 117/83 98 03/19/17 06:00 74 12 114/82 98 03/19/17 05:00 777 14 115/82 100 03/19/17 04:02 97.9 F 72 15 126/87 98 03/19/17 04:00 74 20 126/87 100 03/19/17 03:00 73 12 130/91 98 03/19/17 02:00 68 16 121/85 99 03/19/17 01:00 69 18 126/95 98 03/19/17 00:00 70 12 113/88 97 03/18/17 23:12 98.3 F 03/18/17 23:02 72 18 130/92 98 03/18/17 22:00 74 20 115/98 99 03/18/17 21:00 72 18 114/85 96 03/18/17 20:10 97.8 F 03/18/17 20:06 73 12 124/85 100 03/18/17 19:15 69 22 118/85 100 03/18/17 18:00 86 24 124/65 99 03/18/17 17:07 98 03/18/17 17:00 98.2 F 81 20 130/108 98 09/01/17 16:36 18 136/71 Intake and Output 03/18/17 03/19/17 03/19/17 23:59 07:59 15:59 Intake Total 1000 / 1000 1600 / 1600 Output Total 0 / 0 Balance 1000 / 1000 1600 / 1600 Intake: IV Fluids 1000 / 1000 1000 / 1000 0.9 % Sodium Chloride 1, 1000 / 1000 1000 / 1000 000 ML @ 125 mls/hr IVC . Q8H [facility] Rx#:[id number] Oral 0 / 0 600 / 600 Output: Urine 0 / 0 Other: Meal Breakfast Percent of Meal Consumed 0% # Voids 1 # Urine Diapers 1 1 Weight 64.864 kg 66.6 kg Blood Glucose* 137 Patient Weight 03/19/17 23:59 Weight 66.6 kg - General Appearance General appearance: Present: well-developed, well-nourished, appears started age EENT: Present: ATNC, PERRL, mucous membranes moist Neck: Present: supple Respiratory: Present: clear Cardiology: Present: no edema, regular rate, regular rhythm, normal S1, normal S2 Gastrointestinal: Present: normoactive bowel sounds, no tenderness, no guarding Integumentary: Present: no rash, warm and dry Neurologic: Present: no focal deficit, no asterixis, alert and oriented x3, disoriented (periodic confusion) Musculoskeletal: Present: no deformities, no erythema, no clubbing Psychiatric: Present: mood/affect appropriate, cooperative - Lab 03/22/17 04:28 03/22/17 04:28 Most recent lab results Calcium 9.0 mg/dL (8.6-10.8) 03/19/17 04:44 Consult Discharge Plan - Plan Instructions: Cocaine Abuse (GEN), Non-epileptic Seizures (GEN), Dilantin Toxicity (GEN) Additional Instructions: Please be sure to follow up with your primary care physician and neurologist regarding your medication dosages, seizures. Also please be very careful and clear with your doctor about the correct dosage you should be taking each day. Referrals: [facility] [Outside] - 03/28/17 10:00 am (Please follow up as scheduled)
--- NOTE | 2017-03-19 14:24 | Event Note ---
Date of Encounter: 03/19/17 Time of Encounter: 02:20 31-year-old white female who was hospitalized with suspicion of overdose of her Dilantin. A psych consult was given to assess for suicidality. Upon interviewing today patient was with her boyfriend both of them adamantly denied that it was a suicide attempt. Patient and her boyfriend confirmed that she did not take a whole bottle of her Dilantin in fact she forgot and took extra dose of her daily Dilantin. Patient reported that she might have taken 2 extra doses in the last couple of days that led to this confusion and her hospitalization. There was one mention of patient reporting suicidality on one of the residents notes. I called the resident at home and spoke with him at length about the circumstances. The resident Dr. Casanova made it very clear the patient was confused and delirious when she made that comment. Patient's boyfriend also verified when she was brought and she was confused and saying stuff which did not make any sense and she might have said something on the lines of wanting to kill herself but the boyfriend and the patient clearly denies that it was a suicide attempt. Patient reported that she has too much to look forward to. Patient does not have any prior mental health history or suicide attempt. I discussed the case with patient's provider who is agreeable with the assessment and plan. Patient did not appear to be depressed sad and hopeless or suicidal. No further psych intervention is needed.
[2017-03-20] MEDS: Ondansetron 4 MG/2 ML VIAL IVP SCH ×2 (01:51→06:17)
[2017-03-20] MEDS: 0.9 % Sodium Chloride 1,000 ML IVC SCH ×3 (01:51→18:02)
[2017-03-20 04:55] LABS: Basophils % 0.4 %; Eosinophils # 0.2 K/mcL (0.0-0.6); Eosinophils % 2.6 %; Hematocrit 35.7 % (35.3-44.9); Immature Granulocytes % 0.1 % (0-4); Lymphocytes # 2.9 K/mcL (0.6-4.6); Lymphocytes % 35.5 %; Mean Corpuscular HGB Conc 33.9 g/dL (31.6-35.5); Mean Corpuscular Volume 85.6 fL (83.0-100.0); Mean Platelet Volume 8.7 fL (9.4-12.4); Monocytes # 0.7 K/mcL (0.0-1.3); Monocytes % 8.1 %; Neutrophils # 4.3 K/mcL (1.6-8.9); Platelet Count 309 K/mcL (140-400); Red Blood Count 4.17 M/mcL (3.82-4.97); Red Cell Distribution Width 16.3 % (11.5-14.5); Segmented Neutrophils % 53.3 %
[2017-03-20 04:57] LABS: Hemoglobin 12.1 g/dL (11.5-15.4)
[2017-03-20 05:05] LABS: Alanine Aminotransferase 20 Units/L (0-55); Albumin/Globulin Ratio 0.9 (1.1-2.2); Alkaline Phosphatase 133 Units/L (38-126); Aspartate Amino Transferase 16 Units/L (5-34); BUN/Creatinine Ratio 10 (6-26); Blood Urea Nitrogen 7 mg/dL (7-20); Calcium 8.2 mg/dL (8.6-10.8); Carbon Dioxide 25 mEq/L (19-29); Chloride 105 mEq/L (98-109); Globulin 3.4 g/dL (2.4-3.5); Glucose 148 mg/dL (70-99); Osmolality,Calculated 285 (280-300); Potassium 3.7 mEq/L (3.5-4.5); Sodium 137 mEq/L (136-145); Total Protein 6.4 g/dL (6.0-8.3); eGFR For African Americans > 60 (> 60); eGFR For Non-African Americans > 60 (> 60)
[2017-03-20 05:08] LABS: Bilirubin,Total < 0.3 mg/dL (0.2-1.2)
[2017-03-20] MEDS: *HR* Enoxaparin 40 MG/0.4 ML SYRINGE SQ SCH (06:18)
[2017-03-20] MEDS: Famotidine 20 MG/2 ML VIAL IVP SCH (06:18)
[2017-03-20] MEDS ORDERED: Acetaminophen 325 MG TABLET PO PRN ×3 (08:55→16:15)
--- NOTE | 2017-03-20 08:59 | Pulmonology Progress Note ---
<Cabrera Scott - Last Filed: 03/20/17 09:11> Date of Encounter: 03/20/17 Time of Encounter: 09:00 Assessment and Plan (1) Phenytoin overdose Current Visit: Yes Status: Acute Phenytoin levels are downtrending. Patient is AOx3. Patient no longer has horizontal nystagmus. There is no need to trend dilantin levels at Q4h. Instead, we will trend daily. Psych has cleared her as no longer DTS/DTO. She can restart her dilantin once therapeutic. Nephrology is following for possible complications; kidney function WNL. Patient to be transferred to tele floor. Qualifiers: Injury intent: intentional self-harm Qualified Code(s): T42.0X2A - Poisoning by hydantoin derivatives, intentional self-harm, initial encounter (2) Cocaine abuse Current Visit: No Status: Acute Urine tox screen positive for cocaine. Patient educated on possible complications. (3) Suicide attempt Current Visit: Yes Status: Acute Psych consulted and saw her. Patient is no longer danger to self or others. They believe that suicide attempt was whe she was altered and did not understand what she was saying. She is cleared by psychiatry at this point. (4) Seizure disorder Current Visit: Yes Status: Acute Seizure precautions. Dilantin levels downtrending 49<51.8<71.7. The patient can restart her dilantin when therapeutic. (5) DVT prophylaxis Current Visit: No Status: Acute Continue Lovenox SQ daily Subjective Principal diagnosis: Phenytoin overdose Interval history: Dilantin level downtrending 49/51.8/71.7. Psych has cleared her. They feel that the patient is not at risk of harming herself or others at this time. They believe that the patient wanted to kill herself when she was altered and did not understand what she was saying. Patient pulled her IV out last night to use the restroom. Objective PUL Vital signs: Last Vital Signs Temp 98.4 F 03/20/17 08:00 Pulse 76 03/20/17 06:00 Resp 20 03/20/17 06:00 BP 106/78 03/20/17 06:00 Pulse Ox 95 03/20/17 06:00 General appearance: no acute distress Eyes: nonicteric ENT: oropharynx moist Neck: supple Effort: normal Auscultation: bilateral: clear Cardiovascular: regular rate and rhythm Gastrointestinal: normoactive bowel sounds, non-distended Integumentary: normal Extremities: no cyanosis Musculoskeletal: no deformities Gait: normal gait, normal posture mood appropriate, affect normal Results - Laboratory Findings CBC and BMP: 03/20/17 04:45 03/20/17 04:45 PT/INR, D-dimer PT 11.8 Seconds (9.4-12.1) 03/18/17 12:48 Abnormal lab findings: Abnormal lab results RDW 16.3 % (11.5-14.5) H 03/20/17 04:45 MPV 8.7 fL (9.4-12.4) L 03/20/17 04:45 Reactive Lymphocytes Present (Not Present) A 03/18/17 12:48 Clumped Platelets Few (Not Present) A 03/18/17 12:48 Glucose 148 mg/dL (70-99) H 03/20/17 04:45 POC Glucose 137 (58-89) H 03/18/17 16:54 Calcium 8.2 mg/dL (8.6-10.8) L 03/20/17 04:45 Alkaline Phosphatase 133 Units/L (38-126) H 03/20/17 04:45 Albumin 3.0 g/dL (3.5-5.0) L 03/20/17 04:45 Albumin/Globulin Ratio 0.9 (1.1-2.2) L 03/20/17 04:45 Urine Clarity Cloudy (Clear) A 03/19/17 04:25 Urine Ketones 15 mg/dL (Negative) H 03/19/17 04:25 Urine Bilirubin Small (Negative) H 03/19/17 04:25 Urine Microscopic WBC 3-5 per hpf (0-3) H 03/19/17 04:25 Ur Squamous Epith Cells Many per lpf (None-Few) H 03/19/17 04:25 Urine Bacteria Many per hpf (None-Few) H 03/19/17 04:25 Salicylates < 5.0 mg/dL (15-30) L 03/18/17 12:48 Acetaminophen < 1.0 mcg/mL (10-30) L 03/18/17 12:48 Phenytoin 49.0 mcg/mL (10-20) H* 03/20/17 04:45 Urine Cocaine Screen Positive ng/mL (Cutoff= 300) H 03/19/17 04:25 - Clinical Findings Intake & Output: Intake & Output 03/19/17 03/20/17 03/20/17 23:59 07:59 15:59 Intake Total 1596 / 1596 1740 / 1740 1000 / 1000 Output Total 1400 / 1400 1250 / 1250 300 / 300 Balance 196 / 196 490 / 490 700 / 700 Weight 65.4 kg Consult Discharge Plan - Plan Referrals: NONE,PCP [Primary Care Provider] - <Vasyl Willett - Last Filed: 03/20/17 09:40> Date of Encounter: 03/20/17 Objective PUL Vital signs: Last Vital Signs Temp 98.4 F 03/20/17 08:00 Pulse 76 03/20/17 06:00 Resp 20 03/20/17 06:00 BP 106/78 03/20/17 06:00 Pulse Ox 95 03/20/17 06:00 Results - Laboratory Findings CBC and BMP: 03/20/17 04:45 03/20/17 04:45 PT/INR, D-dimer PT 11.8 Seconds (9.4-12.1) 03/18/17 12:48 Abnormal lab findings: Abnormal lab results RDW 16.3 % (11.5-14.5) H 03/20/17 04:45 MPV 8.7 fL (9.4-12.4) L 03/20/17 04:45 Reactive Lymphocytes Present (Not Present) A 03/18/17 12:48 Clumped Platelets Few (Not Present) A 03/18/17 12:48 Glucose 148 mg/dL (70-99) H 03/20/17 04:45 POC Glucose 137 (58-89) H 03/18/17 16:54 Calcium 8.2 mg/dL (8.6-10.8) L 03/20/17 04:45 Alkaline Phosphatase 133 Units/L (38-126) H 03/20/17 04:45 Albumin 3.0 g/dL (3.5-5.0) L 03/20/17 04:45 Albumin/Globulin Ratio 0.9 (1.1-2.2) L 03/20/17 04:45 Urine Clarity Cloudy (Clear) A 03/19/17 04:25 Urine Ketones 15 mg/dL (Negative) H 03/19/17 04:25 Urine Bilirubin Small (Negative) H 03/19/17 04:25 Urine Microscopic WBC 3-5 per hpf (0-3) H 03/19/17 04:25 Ur Squamous Epith Cells Many per lpf (None-Few) H 03/19/17 04:25 Urine Bacteria Many per hpf (None-Few) H 03/19/17 04:25 Salicylates < 5.0 mg/dL (15-30) L 03/18/17 12:48 Acetaminophen < 1.0 mcg/mL (10-30) L 03/18/17 12:48 Phenytoin 50.8 mcg/mL (10-20) H* 03/20/17 08:30 Urine Cocaine Screen Positive ng/mL (Cutoff= 300) H 03/19/17 04:25 - Clinical Findings Intake & Output: Intake & Output 03/19/17 03/20/17 03/20/17 23:59 07:59 15:59 Intake Total 1596 / 1596 1740 / 1740 1000 / 1000 Output Total 1400 / 1400 1250 / 1250 300 / 300 Balance 196 / 196 490 / 490 700 / 700 Weight 65.4 kg - Attending Attestation I examined this patient and my medical decision-making was reviewed with the Resident Physician. I agree with the documented findings, disposition and treatment plan as described except to the extent set forth below. Patient seen and examined. Labs, radiology, chart personally reviewed. Agree with resident's history and physical, assessment, plan with following comments: BOW REPAIRER CUSTOM: Patient follows commands, patient mental status has improved significantly and her Dilantin level remained elevated, but safe to be monitored in the floor before she would be discharged home whenever her Dilantin level is therapeutic and that can be resumed. Pulmonary: Acceptable oxygenation and ventilation Cardiovascular: stable GI: Nutrition per dietary and GI prophylaxis per routine Patient was advised to monitor her medications to point an overdose to happen again.
--- NOTE | 2017-03-20 09:46 | Nephrology Progress Note ---
Date of Encounter: 03/20/17 Time of Encounter: 09:00 - Assessment and Plan (1) Phenytoin overdose Status: Acute She was s/e earlier today in the ICU. Her Phenytoin levels continue to trend better. She remains A/Ox3. SCr remains intact. No urgent indications for COLLARETTE SEPARATOR today. Will follow with you. Qualifiers: Encounter type: subsequent encounter Injury intent: accidental or unintentional Qualified Code(s): T42.0X1D - Poisoning by hydantoin derivatives , accidental (unintentional), subsequent encounter (2) Acute encephalopathy Status: Acute As per primary (3) Seizure disorder Status: Chronic As per primary Subjective Principal diagnosis: Phenytoin overdose Interval history: Pt was s/e and did not affirm N/V and reported feeling well today. Objective - Vital Signs Vital signs: Vital Signs Temp Pulse Resp BP Pulse Ox 03/20/17 09:00 84 20 121/87 99 03/20/17 08:00 98.4 F 76 20 111/82 99 03/20/17 07:00 75 20 107/77 95 03/20/17 06:00 76 20 106/78 95 03/20/17 05:00 78 16 108/69 95 03/20/17 04:00 75 19 116/84 95 03/20/17 03:08 98.4 F 03/20/17 03:00 81 16 111/83 96 03/20/17 02:00 78 18 115/90 96 03/20/17 01:40 77 20 98/87 96 03/20/17 00:00 79 22 123/90 100 03/19/17 23:00 84 20 124/85 100 03/19/17 22:00 80 14 113/83 98 03/19/17 21:00 82 19 119/76 96 03/19/17 20:04 87 18 122/95 99 03/19/17 20:00 89 03/19/17 19:40 98.7 F 03/19/17 19:00 84 20 124/85 99 03/19/17 18:00 98 16 128/90 98 03/19/17 17:00 90 16 134/101 98 03/19/17 16:33 90 03/19/17 16:00 98.4 F 90 12 115/80 99 03/19/17 15:00 85 12 121/81 99 03/19/17 14:00 85 12 136/84 99 03/19/17 13:00 90 12 136/75 99 03/19/17 12:00 85 03/19/17 11:59 98.1 F 85 12 138/93 99 03/19/17 11:00 83 12 108/73 98 03/19/17 10:00 97.6 F 79 12 123/91 98 Intake and Output 03/19/17 03/20/17 03/20/17 23:59 07:59 15:59 Intake Total 1596 / 1596 1740 / 1740 1000 / 1000 Output Total 1400 / 1400 1250 / 1250 300 / 300 Balance 196 / 196 490 / 490 700 / 700 Intake: IV Fluids 1000 / 1000 1000 / 1000 1000 / 1000 0.9 % Sodium Chloride 1, 1000 / 1000 1000 / 1000 1000 / 1000 000 ML @ 125 mls/hr IVC . Q8H [facility] Rx#:[id number] Oral 596 / 596 740 / 740 Output: Urine 1400 / 1400 1250 / 1250 Catheter 300 / 300 Other: Meal Dinner Percent of Meal Consumed 100% # Voids 1 # Urine Diapers 0 Weight 65.4 kg Patient Weight 03/20/17 23:59 Weight 65.4 kg - General Appearance Exam: General appearance: Present: well-developed, well-nourished, appears started age EENT: Present: ATNC, PERRL, mucous membranes moist Neck: Present: supple Respiratory: Present: clear Cardiology: Present: no edema, regular rate, regular rhythm, normal S1, normal S2 Gastrointestinal: Present: normoactive bowel sounds, no tenderness, no guarding Integumentary: Present: no rash, warm and dry Neurologic: Present: no focal deficit, no asterixis, alert and oriented x3, disoriented (periodic confusion) Musculoskeletal: Present: no deformities, no erythema, no clubbing Psychiatric: Present: mood/affect appropriate, cooperative - Lab 03/22/17 04:28 03/22/17 04:28 Most recent lab results Calcium 8.2 mg/dL (8.6-10.8) L 03/20/17 04:45 Consult Discharge Plan - Plan Instructions: Cocaine Abuse (GEN), Non-epileptic Seizures (GEN), Dilantin Toxicity (GEN) Additional Instructions: Please be sure to follow up with your primary care physician and neurologist regarding your medication dosages, seizures. Also please be very careful and clear with your doctor about the correct dosage you should be taking each day. Referrals: [facility] [Outside] - 03/28/17 10:00 am (Please follow up as scheduled)
[2017-03-20] MEDS ORDERED: Melatonin 3 MG TABLET PO PRN (22:30)
[2017-03-20] MEDS: Ondansetron 4 MG/2 ML VIAL IVP PRN (22:51)
[2017-03-21] MEDS: 0.9 % Sodium Chloride 1,000 ML IVC SCH ×3 (02:10→20:34)
[2017-03-21] MEDS: *HR* Enoxaparin 40 MG/0.4 ML SYRINGE SQ SCH (05:38)
[2017-03-21] MEDS: Ondansetron 4 MG/2 ML VIAL IVP PRN ×2 (06:27→23:14)
[2017-03-21 06:38] LABS: Hematocrit 36.4 % (35.3-44.9); Mean Corpuscular Hemoglobin 28.2 pg (28.0-33.3); Mean Corpuscular Volume 85.6 fL (83.0-100.0); Mean Platelet Volume 10.4 fL (9.4-12.4); Platelet Count 208 K/mcL (140-400); Red Blood Count 4.25 M/mcL (3.82-4.97); Red Cell Distribution Width 16.5 % (11.5-14.5)
[2017-03-21 06:50] LABS: Alanine Aminotransferase 18 Units/L (0-55); Albumin 2.9 g/dL (3.5-5.0); Albumin/Globulin Ratio 0.8 (1.1-2.2); Alkaline Phosphatase 112 Units/L (38-126); Aspartate Amino Transferase 16 Units/L (5-34); BUN/Creatinine Ratio 11 (6-26); Blood Urea Nitrogen 7 mg/dL (7-20); Calcium 8.5 mg/dL (8.6-10.8); Carbon Dioxide 23 mEq/L (19-29); Chloride 109 mEq/L (98-109); Globulin 3.5 g/dL (2.4-3.5); Glucose 72 mg/dL (70-99); Magnesium 1.8 mg/dL (1.6-2.6); Osmolality,Calculated 285 (280-300); Potassium 3.8 mEq/L (3.5-4.5); Sodium 139 mEq/L (136-145); Total Protein 6.4 g/dL (6.0-8.3); eGFR For African Americans > 60 (> 60); eGFR For Non-African Americans > 60 (> 60)
[2017-03-21 06:51] LABS: Bilirubin,Total < 0.3 mg/dL (0.2-1.2)
[2017-03-21 06:52] LABS: Phenytoin (Dilantin) 37.5 mcg/mL (10-20)
[2017-03-21] MEDS ORDERED: *HR* LORazepam 2 MG/ML VIAL ONE (10:45)
[2017-03-21] MEDS ORDERED: *HR* LORazepam 2 MG/ML VIAL IVP PRN (10:56)
[2017-03-21] MEDS ORDERED: *HR* LORazepam 2 MG/ML VIAL IVP ONE (10:58)
--- NOTE | 2017-03-21 11:16 | Internal Med Progress Note ---
<Rao Gerber - Last Filed: 03/21/17 14:37> Date of Encounter: 03/21/17 Time of Encounter: 11:09 - Assessment and plan (1) Generalized seizure Current Visit: No Status: Acute Assessment and plan: - Witnessed seizure this AM with physician present. - Patient given Ativan 2 mg IV. PRN orders for future episodes - Will restart home dose of Keppra 1000 mg BID. - Will continue to monitor, protective measures. - Per chart review, patient had similar admission involving seizures secondary to cocaine abuse. (2) Phenytoin overdose Current Visit: Yes Status: Acute Assessment and plan: - Concentration of 37 this AM - Continues to downtrend. Will continue to hold until therapeutic level. - Nephrology following. Qualifiers: Encounter type: initial encounter Injury intent: undetermined intent Qualified Code(s): T42.0X4A - Poisoning by hydantoin derivatives, undetermined, initial encounter (3) Seizure disorder Current Visit: Yes Status: Acute Assessment and plan: As above. - Home meds of Keppra, phenytoin. - Patient reports history of intracranial tumor, however head CT done in emergency department revealed no mass. - Patient's sister who is at bedside states that patient had workup at [facility] but is unfamiliar with exact diagnosis. (4) Cocaine abuse Current Visit: No Status: Acute Assessment and plan: Cocaine positive in UDS - May be contributing to seizures - patient was instructed about risks of continuing abuse. (5) DVT prophylaxis Current Visit: No Status: Acute Assessment and plan: Lovanox 40 - Time Spent With Patient 25 - 35 minutes - Subjective Interval history: Patient was seen and examined at bedside this morning. She states that she is feeling well, however is tired. She denied any symptoms of CP, SOB, n/v, pain. She states she has had no seizure like activity. Doctor was called to patient's room at 10:36am for possible seizure. Patient was noted by nurse to be non responsive and squeezed her eyes shut and was staring off gaze. Patient was assessed by doctor on the floor. A few moments later, doctor was again called into the patient's room and was actively seizing. Patient was unresponsive. Protective measures taken and patient was given 2 mg Ativan IV. Orders to restart home dose of Keppra given. PRN ativan seizing. Patient reassessed after postictal state.. She is currently resting comfortably. No current complaints, lethargic appearing. - Constitutional Vitals: Temp Pulse Resp BP Pulse Ox 98.5 F 94 16 135/92 98 03/21/17 07:47 03/21/17 07:47 03/21/17 07:47 03/21/17 07:47 03/21/17 07:47 Exam: Gen.: Vitals noted. No acute distress. AAOx3 HEENT: PERRL/EOMI, oropharynx clear, Normocephalic, multiple lacerations and ecchymosis of the face particularly the right side Neck: Supple. No adenopathy. Cardiac: RRR, no murmur, +S1/S2 Pulmonary: CTA bilaterally, no wheezes, rales or rhonchi, equal chest expansion Abdomen: soft, nontender, BS noted, no guarding MSK: ROM intact, no joint swelling noted Extremities: no BLE edema, nontender calf, no cyanosis or clubbing. Track pimentel on right posterior hand Neuro: A&Ox3, moves all extremities, no focal deficits Psych: Appropriate mood and behavior Internal Medicine: Result - Labs CBC & Chem 7: 03/21/17 05:37 03/21/17 05:37 Labs: Short CBC 03/21/17 Range/Units 05:37 WBC 7.6 (4.3-11.1) K/mcL Hgb 12.0 (11.5-15.4) g/dL Hct 36.4 (35.3-44.9) % Plt Count 208 (140-400) K/mcL BMP 03/21/17 05:37 Sodium 139 Potassium 3.8 Chloride 109 Carbon Dioxide 23 BUN 7 Creatinine 0.61 Glucose 72 Calcium 8.5 L Liver Function 03/21/17 Range/Units 05:37 Total Bilirubin < 0.3 (0.2-1.2) mg/dL AST 16 (5-34) Units/L ALT 18 (0-55) Units/L Alkaline Phosphatase 112 (38-126) Units/L Albumin 2.9 L (3.5-5.0) g/dL - ABG Interpretation ABG results: PT/INR, D-dimer PT 11.8 Seconds (9.4-12.1) 03/18/17 12:48 Consult Discharge Plan - Plan Referrals: NONE,PCP [Primary Care Provider] - <AdamToñito Landon - Last Filed: 03/21/17 18:24> Date of Encounter: 03/21/17 - Assessment and plan (1) Phenytoin overdose Current Visit: Yes Status: Acute Qualifiers: Encounter type: subsequent encounter Injury intent: accidental or unintentional Qualified Code(s): T42.0X1D - Poisoning by hydantoin derivatives , accidental (unintentional), subsequent encounter (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 (3) Tobacco abuse Current Visit: Yes Status: Chronic - Constitutional Vitals: Temp Pulse Resp BP Pulse Ox 98.5 F 85 18 116/76 99 03/21/17 17:25 03/21/17 17:25 03/21/17 17:25 03/21/17 17:25 03/21/17 17:25 Internal Medicine: Result - Labs CBC & Chem 7: 03/21/17 05:37 03/21/17 05:37 Labs: Short CBC 03/21/17 Range/Units 05:37 WBC 7.6 (4.3-11.1) K/mcL Hgb 12.0 (11.5-15.4) g/dL Hct 36.4 (35.3-44.9) % Plt Count 208 (140-400) K/mcL BMP 03/21/17 05:37 Sodium 139 Potassium 3.8 Chloride 109 Carbon Dioxide 23 BUN 7 Creatinine 0.61 Glucose 72 Calcium 8.5 L Liver Function 03/21/17 Range/Units 05:37 Total Bilirubin < 0.3 (0.2-1.2) mg/dL AST 16 (5-34) Units/L ALT 18 (0-55) Units/L Alkaline Phosphatase 112 (38-126) Units/L Albumin 2.9 L (3.5-5.0) g/dL - ABG Interpretation ABG results: PT/INR, D-dimer PT 11.8 Seconds (9.4-12.1) 03/18/17 12:48 - Attending Attestation I examined this patient and my medical decision-making was reviewed with the Resident Physician on 03/21/17. I agree with the documented findings, disposition and treatment plan as described except to the extent set forth below. Ms Sullivan has been admitted for dilantin toxicity and grand mal seizure. She remains high risk due to potential for worsening neuro status. Ms. Sullivan had grand mal seizure today. Dilantin level slowly decreasing. Given Ativan and IV Keppra. No fever or chills. No other new issues. Exam Post ictal. Heart tachy Lungs with some rhonchi No edema I/P 1 Dilantin toxicity 2. Grand mal seizure Further diagnoses and plan as above.
[2017-03-21] MEDS: levETIRAcetam 1,000 MG in 0.9 % Sodium Chloride 100 ML IVPB SCH ×2 (11:55→20:34)
[2017-03-22 04:53] LABS: Hematocrit 40.7 % (35.3-44.9); Hemoglobin 12.4 g/dL (11.5-15.4); Mean Corpuscular HGB Conc 30.5 g/dL (31.6-35.5); Mean Corpuscular Hemoglobin 27.3 pg (28.0-33.3); Mean Corpuscular Volume 89.6 fL (83.0-100.0); Platelet Count 332 K/mcL (140-400); Red Blood Count 4.54 M/mcL (3.82-4.97); Red Cell Distribution Width 16.9 % (11.5-14.5)
[2017-03-22 05:06] LABS: BUN/Creatinine Ratio 13 (6-26); Blood Urea Nitrogen 8 mg/dL (7-20); Calcium 8.8 mg/dL (8.6-10.8); Carbon Dioxide 25 mEq/L (19-29); Chloride 106 mEq/L (98-109); Glucose 75 mg/dL (70-99); Osmolality,Calculated 285 (280-300); Potassium 3.9 mEq/L (3.5-4.5); Sodium 139 mEq/L (136-145); eGFR For African Americans > 60 (> 60); eGFR For Non-African Americans > 60 (> 60)
[2017-03-22] MEDS: 0.9 % Sodium Chloride 1,000 ML IVC SCH (05:07)
[2017-03-22] MEDS: *HR* Enoxaparin 40 MG/0.4 ML SYRINGE SQ SCH (05:09)
[2017-03-22 05:16] LABS: Phenytoin (Dilantin) 32.6 mcg/mL (10-20)
[2017-03-22 06:52] VITALS: BP 122/88
[2017-03-22] MEDS ORDERED: Acetaminophen 325 MG TABLET PO PRN (07:50)
--- NOTE | 2017-03-22 08:11 | Discharge Summary ---
<Rao Gerber - Last Filed: 03/22/17 09:12> Date of Encounter: 03/22/17 Time of Encounter: 08:08 - Discharge Diagnosis (1) Phenytoin overdose Priority: Primary Status: Acute Qualifiers: Encounter type: initial encounter Injury intent: accidental or unintentional Qualified Code(s): T42.0X1A - Poisoning by hydantoin derivatives , accidental (unintentional), initial encounter (2) Generalized seizure Priority: Secondary Status: Acute (3) Seizure disorder Priority: Secondary Status: Chronic (4) Cocaine abuse Priority: Secondary Status: Chronic (5) DVT prophylaxis Priority: Secondary Status: Acute - Discharge Medications Home Medications: Phenytoin [Dilantin] 300 mg PO Q12HR 01/01/17 [History] LevETIRAcetam [Keppra] 1,000 mg PO BID 03/18/17 [History] clonazePAM [Klonopin] 2 mg PO BID 03/18/17 [History] Allergies/Adverse Reactions: 3 Allergy/AdvReac Type Severity Reaction Status Date / Time No Known Allergies Allergy Verified 01/23/17 11:57 Date of admission: 03/18/17 16:19 Primary care physician: PCP NONE Discharging clinician: Rao Gerber Anticipated date of discharge: 03/22/17 - Patient Status Disposition: Home, Self-Care Condition: Fair Functional capacity at discharge: independent ambulation Overall status at discharge: patient is progressing back to baseline - Discharge Instructions Instructions: Cocaine Abuse (GEN), Non-epileptic Seizures (GEN), Dilantin Toxicity (GEN) Follow Up With: [facility] [Outside] - 03/28/17 10:00 am (Please follow up as scheduled) Additional Instructions: Please be sure to follow up with your primary care physician and neurologist regarding your medication dosages, seizures. Also please be very careful and clear with your doctor about the correct dosage you should be taking each day. - Diet and Activity Activity: increase activity as tolerated, resume usual activities as tolerated Diet: advance to your usual diet Hospital course: Ms. Sullivan is a 31 year old female who presented to ED confused and altered. Her boyfriend was yelling at the hospital doors with concern for seizure or stroke or something. Patient appeared to be mildly combative, confused, had horizontal nystagmus, she had urinated herself, she had emesis on her clothing. Her skin is pale and diaphoretic. Pupils dilated with minimal reactivity. Oral mucosa moist. Vital signs at this time are stable. She has a history of seizures every 1-2 days for which she takes phenytoin and Keppra and sees Dr. Héctor Bill in [place]. Lab results were significant for mildly elevated H/H, phenytoin of 88.1, Alk phos of 138. Portal chest x-ray negative for acute cardiopulmonary process. CT head negative for acute intracranial normality. Poison control was contacted regarding the phenytoin level who recommended supportive therapy. She was admitted to the ICU for possible hemodialysis with a diagnosis of phenytoin overdose. Nephrology was consulted who recommended half normal saline to encourage excretion of phenytoin. During course of hospital stay, patient gradually improved as her phenytoin levels dropped. She was transferred from the ICU to the medical floor the following day. She received supportive care and on day of discharge her phenytoin level was 32.6. The patient did have one witnessed seizure on 03/21 which resolved after approximately one minute. She received 2 mg Ativan and her home dose of Keppra was restarted. She has had no further episodes and has no complaints aside from fatigue during her post ictal state. On day of discharge, she had no complaints and was resting comfortably. She was discharged to home in stable medical condition and instructed to follow up with her PCP and her neurologist regarding further management of her seizure disorder and medication dosages. - Time Spent with Patient Total time spent providing and/or coordinating discharge services: 40 minutes - Constitutional Vitals: Temp Pulse Resp BP Pulse Ox 98.5 F 71 14 122/88 98 03/22/17 06:51 03/22/17 06:51 03/22/17 06:51 03/22/17 06:51 03/22/17 06:51 General appearance: Present: A&O X 3, no acute distress, answers questions appropriately - Head Head exam: Present: normocephalic Additional comments: multiple lacerations and bruising present on admission - Neck Neck exam general surgery: Present: full ROM, supple - Respiratory Respiratory exam: Present: CTAB - Cardiovascular Cardiovascular exam: Present: RRR, +S1, +S2 - GI/Abdominal GI/Abdominal exam: Present: normal bowel sounds, soft. Absent: distended, firm , guarding, tenderness, no peritoneal signs - Extremities Exam Extremities exam: Present: normal capillary refill, warm Additional comments: noted track pimentel on right dorsal surface of hand - Neurological Exam Neurological exam: Present: alert, oriented X3, no focal deficits, strengths equal and symetr throughout. Absent: speech deficit Additional comments: mildly lethargic during time of interview - Psychiatric Psychiatric exam: Present: normal affect, normal mood - Skin Skin exam: Present: abrasion (face), warm <Toñito Medina - Last Filed: 03/22/17 16:15> Date of Encounter: 03/22/17 - Discharge Diagnosis (1) Grand mal seizure Priority: Primary Status: Chronic (2) Phenytoin overdose Status: Acute Qualifiers: Encounter type: subsequent encounter Injury intent: accidental or unintentional Qualified Code(s): T42.0X1D - Poisoning by hydantoin derivatives , accidental (unintentional), subsequent encounter (3) Tobacco abuse Priority: Secondary Status: Chronic Date of admission: 03/18/17 16:19 Primary care physician: PCP NONE Hospital course: Ms. Sullivan is a 31 year old female - Time Spent with Patient Total time spent providing and/or coordinating discharge services: 38min - Constitutional Vitals: Temp Pulse Resp BP Pulse Ox 98.5 F 71 14 122/88 98 03/22/17 06:51 03/22/17 06:51 03/22/17 06:51 03/22/17 06:51 03/22/17 06:51 - Attending Attestation I examined this patient and my medical decision-making was reviewed with the Resident Physician on 03/22/17. I agree with the documented findings, disposition and treatment plan as described except to the extent set forth below. Ms. Sullivan was admitted for dilantin toxicity and grand mal seizure Today she is alert and oriented. She is afebrile and vitals stable. No further seizure since restart Keppra. Dilantin level is still elevated but she has no acute symptoms due to this. She is ready to go home. Exam alert Comfortable No nystagmus No ataxia Heart reg No wheeze Plan D/C today No dilantin till follow up with PCP or neurol Continue Keppra
[2017-03-22] MEDS: levETIRAcetam 1,000 MG in 0.9 % Sodium Chloride 100 ML IVPB SCH (09:06)
[2017-03-22] MEDS: Ondansetron 4 MG/2 ML VIAL IVP PRN (09:16)
--- NOTE | 2017-03-23 10:05 | Electrocardiograph Report ---
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
== END 2017-03-22 10:57 | disposition home or self-care (01) | DRG 812 ==
LOC: EMEROO 12:27 → ICNU 12:27 → 2ANU 03-20 14:34
PROVIDERS: ADMIT Internal Medicine Pulmonary Disease; ATTEND Internal Medicine

== ENCOUNTER 2018-03-19 13:22 | Observation (INO) ==
--- NOTE | 2018-03-19 13:44 | Emergency Department Note ---
Addendum entered and electronically signed by Darek Corona DO 03/19/18 17:15: Addendum: Patient was going to be discharged home. However, phenytoin level came back greater than 40. With her symptoms of nausea and vomiting, this could be toxicity. However, patient has no altered mental status, no other signs of any cardiac involvement such as bradycardia, no fevers, the rest of her blood work looked okay and the rest of her workup showed no major abnormalities. We will admit the patient to have level trended, will start 1 L normal saline bolus. Discussed case with hospitalist who has accepted the patient for admission. Recommend possible consult to neurology as well due to history of seizures, phenytoin toxicity, may require further intervention such as EEG due to complaints of seizures. Addendum to disposition and clinical impression : At phenytoin toxicity to impression, change disposition to admitted. SBAR given to Dr. Ren. Original Note: Disposition Clinical Impression: History of seizure, Nonepileptic episode Disposition: Home, Self-Care Condition: Good Time of Disposition: 16:05 Seizure HPI - General Chief Complaint: ED Seizure Stated Complaint: Seizure Time Seen by Provider: 03/19/18 13:28 Source: patient Mode of arrival: ambulatory Limitations: no limitations Nursing Notes Reviewed: Yes Vital Signs Reviewed: Yes - History of Present Illness HPI Narrative: Patient is a 32-year-old female with self-reported history of seizures, states that she is on phenytoin and Keppra daily. She states that she has not missed any of these medications. She presents today via EMS due to seizure. She says that she has seizures about once every couple months. When she has these seizures, she states that she loses consciousness for a few seconds and comes to her she occasionally has tonic-clonic activity of her extremities. She states that she does not see a specialist for seizures, is prescribed her maintenance medications by her primary care physician Héctor Bill. She also notes that she was at [facility] in their ICU about a week ago due to "very bad seizures ". She also reports a fever of 104 over the past 1-2 days, nausea and vomiting a few times since last night, nonbloody. Denies any chest pain, shortness of breath, abdominal pain, dysuria, hematuria, vaginal bleeding or discharge, IV drug use, neck or back pain, headache. She does admit to blurred vision and lower 70 bilateral weakness and makes it difficult to walk. She first stated that she could not walk at all and could not see at all, however, after further questioning, she does state that she is able to get around her house, and has occasional blurred vision but does not have a complete loss of vision or black spots. - Related Data Home Medications Medication Instructions Recorded Confirmed Phenytoin [Dilantin] 300 mg PO Q12HR 01/01/17 03/18/17 LevETIRAcetam [Keppra] 1,000 mg PO BID 03/18/17 03/18/17 clonazePAM [Klonopin] 2 mg PO BID 03/18/17 03/18/17 Previous Rx's Medication Instructions Recorded Nitrofurantoin Monohyd/M-Cryst 100 mg PO BID #14 capsule 09/25/17 [Macrobid 100 mg Capsule] LevETIRAcetam [Keppra] 1,000 mg PO BID 10 Days #40 tablet 02/03/18 Phenytoin [Dilantin] 300 mg PO Q12HR 10 Days #20 02/03/18 tab.chew LevETIRAcetam [Keppra] 1,000 mg PO BID #60 tablet 02/08/18 Nitrofurantoin Monohyd/M-Cryst 100 mg PO BID 7 Days capsule 02/08/18 [Macrobid 100 mg Capsule] Phenytoin [Dilantin] 300 mg PO Q12HR #60 tab.chew 02/08/18 LevETIRAcetam [Keppra] 1,000 mg PO BID #20 tablet 02/19/18 Phenytoin [Dilantin] 300 mg PO Q12HR #10 tab.chew 02/19/18 Allergies Allergy/AdvReac Type Severity Reaction Status Date / Time No Known Allergies Allergy Verified 01/23/17 11:57 All systems ED: reviewed and negative except as stated. Constitutional: Reports: fever Cardiovascular: Denies: chest pain Respiratory: Denies: dyspnea Gastrointestinal: Reports: nausea, vomiting. Denies: abdominal pain, diarrhea Genitourinary: Denies: urgency, dysuria, frequency Musculoskeletal: Denies: back pain, neck pain Integumentary: Denies: rash Neurological: Reports: weakness, other (vision blurring). Denies: headache Past Medical History - Past Medical History Attestation: Yes The following information was validated with the patient. 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 - Social History Smoking Status: Current every day smoker Smokeless Tobacco Status: No Alcohol use: Reports: none Drug use: Reports: none Physical Exam - General Limitations: no limitations General appearance: alert, in no apparent distress - Head Head exam: atraumatic, normocephalic, normal inspection - Eye Eye exam: Present: normal appearance, PERRL, EOMI - ENT ENT exam: normal exam, normal oropharynx, mucous membranes moist - Neck Neck exam: Present: normal inspection, full ROM, trachea midline - Chest Chest inspection: Present: normal inspection, symmetric chest wall rise - Respiratory Respiratory exam: Present: normal lung sounds bilaterally - Cardiovascular Cardiovascular exam: Present: regular rate, normal rhythm, normal heart sounds - Abdominal Exam Abdominal exam: Present: soft, Non-Tender. Absent: tenderness, distention, guarding, rebound, rigidity - Extremities Exam Extremities exam: Present: normal inspection, full ROM. Absent: tenderness, pedal edema - Neurological Exam Neurological exam: Present: alert, oriented X3, CN II-XII intact. Absent: motor sensory deficit - Expanded Neurological Exam Patient oriented to: Present: person, place, time Cranial nerves: EOM function (II, III, IV, ): Normal, facial sensation (V): Normal, facial palsy (VII): Normal, spinal accessory function (XI): Normal, tongue deviation (XII): Normal Motor strength - LUE: 5/5 Motor strength - RUE: 5/5 Motor strength - LLE: 5/5 Motor strength - RLE: 5/5 Sensory exam upper extremity: light touch: Normal Sensory exam lower extremity: light touch: Normal Coma Scale Eye Opening: Spontaneous Coma Scale Motor Response: Obeys Commands Coma Scale Verbal Response: Oriented Coma Scale Total: 15 - Psychiatric Psychiatric exam: Present: normal affect, normal mood - Skin Skin exam: Present: warm, dry, intact, normal color Course Course Narrative: Vitals within normal limits. Physical exam benign, heart regular rate and rhythm, lungs clear to auscultation, abdomen soft and nontender, no focal neurologic deficits, NIH of 0. Throughout the exam, patient had 3 "seizures "where she turned her head to the side, stopped talking, flutter eyes. When I squeezed hardly on her fingernails or his toes, she would quickly come to. She is not confused. Had no postictal phase. She also responded during one or 2 of these episodes to verbal stimulation. Reviewing her history, patient has had multiple presentations to the ED due to seizure activity. I am currently concern for pseudoseizures. However, will still perform workup with a head CT, basic blood work, EKG, urinalysis and urine . If negative, will send patient home and refer her to neurologist to have further specialist workup. 16:04 mild chronic anemia. Otherwise, no major lab abnormality. Urinalysis shows likely contamination. We will send for culture. No urine symptoms at this time. Head CT was negative for any acute intracranial abnormality. EKG showed normal sinus rhythm with no acute ST changes. We will send the patient home at this time, we will have her follow-up with neurologist since patient is not currently set up with a specialist. I will return to the ER for any new or worsening symptoms. We will recommend that she not drive a car or operating any heavy machinery until she is cleared by neurology. Head CT 03/19/18 13:43 IMPRESSION: No acute intracranial abnormality. D/ / Ling Geronimo Cha, MD / Ling Geronimo Cha, MD Interpreting Provider: Ling Geronimo Cha, MD Vital Signs Temperature 99.4 F 03/19/18 13:27 Pulse Rate 79 03/19/18 13:27 Respiratory Rate 16 03/19/18 13:27 Blood Pressure 125/79 03/19/18 13:27 O2 Sat by Pulse Oximetry 99 03/19/18 13:27 Temperature 99.4 F 03/19/18 13:27 Pulse Rate 70 03/19/18 17:13 Respiratory Rate 14 03/19/18 17:13 Blood Pressure 120/80 03/19/18 17:13 O2 Sat by Pulse Oximetry 100 03/19/18 17:13 Oxygen Delivery Oxygen Delivery Room Air Seizure - MDM Narrative Medical decision making narrative: Vitals within normal limits. Physical exam benign, heart regular rate and rhythm, lungs clear to auscultation, abdomen soft and nontender, no focal neurologic deficits, NIH of 0. Throughout the exam, patient had 3 "seizures "where she turned her head to the side, stopped talking, flutter eyes. When I squeezed hardly on her fingernails or his toes, she would quickly come to. She is not confused. Had no postictal phase. She also responded during one or 2 of these episodes to verbal stimulation. Reviewing her history, patient has had multiple presentations to the ED due to seizure activity. I am currently concern for pseudoseizures. However, will still perform workup with a head CT, basic blood work, EKG, urinalysis and urine . If negative, will send patient home and refer her to neurologist to have further specialist workup. 16:04 mild chronic anemia. Otherwise, no major lab abnormality. Urinalysis shows likely contamination. We will send for culture. No urine symptoms at this time. Head CT was negative for any acute intracranial abnormality. EKG showed normal sinus rhythm with no acute ST changes. We will send the patient home at this time, we will have her follow-up with neurologist since patient is not currently set up with a specialist. I will return to the ER for any new or worsening symptoms. We will recommend that she not drive a car or operating any heavy machinery until she is cleared by neurology. - Medical Records Medical records reviewed: Yes I reviewed the patient's medical records. - Lab Data Lab results reviewed: Yes I reviewed the patient's lab results. Result diagrams: 03/19/18 18:18 03/19/18 13:53 Lab Results 03/19/18 03/19/18 03/19/18 Range/Units 13:53 13:53 15:07 WBC 5.9 (4.3-11.1) K/mcL RBC 4.34 (3.82-4.97) M/mcL Hgb 11.4 L (11.5-15.4) g/dL Hct 35.0 L (35.3-44.9) % MCV 80.6 L (83.0-100.0) fL MCH 26.3 L (28.0-33.3) pg MCHC 32.6 (31.6-35.5) g/dL RDW 14.9 H (11.5-14.5) % Plt Count 389 (140-400) K/mcL MPV 8.5 L (9.4-12.4) fL Immature Gran % 0.2 (0-4) % Seg Neutrophils % 44.2 % Lymphocytes % 45.2 % Monocytes % 8.2 % Eosinophils % 2.0 % Basophils % 0.2 % Neutrophils # 2.6 (1.6-8.9) K/mcL Lymphocytes # 2.7 (0.6-4.6) K/mcL Monocytes # 0.5 (0.0-1.3) K/mcL Eosinophils # 0.1 (0.0-0.6) K/mcL Basophils # 0.0 (0.0-0.2) K/mcL Sodium 137 (136-145) mEq/L Potassium 3.5 (3.5-5.1) mEq/L Chloride 105 (98-107) mEq/L Carbon Dioxide 26 (23-29) mEq/L BUN 8 (6-20) mg/dL Creatinine 0.62 (0.60-1.20) mg/dL Est GFR ( Amer) > 60 (> 60) Est GFR (Non-Af Amer) > 60 (> 60) BUN/Creatinine Ratio 13 (6-26) Glucose 95 (70-105) mg/dL Calculated Osmolality 282 (280-300) Calcium 8.8 (8.6-10.3) mg/dL Urine Color Yellow (Yellow) Urine Clarity Clear (Clear) Urine pH 7.0 (5.0-8.0) pH Units Ur Specific [place] 1.022 (1.010-1.025) Urine Protein Negative (Neg-Trace) mg/dL Urine Glucose (UA) Normal (Normal) mg/dL Urine Ketones 15 H (Negative) mg/dL Urine Blood Negative (Negative) Urine Nitrite Negative (Negative) Urine Bilirubin Small H (Negative) Urine Urobilinogen Normal (Normal) mg/dL Ur Leukocyte Esterase Moderate H (Negative) Urine Microscopic RBC 0-3 (0-3) per hpf Urine Microscopic WBC 5-15 H (0-3) per hpf Ur Squamous Epith Cells Many H (None-Few) per lpf Urine Bacteria None Seen (None-Few) per hpf Hyaline Casts None Seen (None-Few) per lpf Urine Test (Negative) Urine Opiates Screen (Dkacjk=868) ng/mL Ur Barbiturates Screen (Fltxxx=778) ng/mL Phenytoin > 40.0 H* (10.0-20.0) mcg/mL Ur Phencyclidine Scrn (Cutoff=25) ng/mL Ur Amphetamines Screen (Ijgszd=6338) ng/mL U Benzodiazepines Scrn (Vofcuz=101) ng/mL Urine Cocaine Screen (Cutoff= 300) ng/mL U Marijuana (THC) Screen (Cutoff = 50) ng/mL Ur Drug Screen Interp 03/19/18 03/19/18 03/19/18 Range/Units 15:07 15:27 17:03 WBC (4.3-11.1) K/mcL RBC (3.82-4.97) M/mcL Hgb (11.5-15.4) g/dL Hct (35.3-44.9) % MCV (83.0-100.0) fL MCH (28.0-33.3) pg MCHC (31.6-35.5) g/dL RDW (11.5-14.5) % Plt Count (140-400) K/mcL MPV (9.4-12.4) fL Immature Gran % (0-4) % Seg Neutrophils % % Lymphocytes % % Monocytes % % Eosinophils % % Basophils % % Neutrophils # (1.6-8.9) K/mcL Lymphocytes # (0.6-4.6) K/mcL Monocytes # (0.0-1.3) K/mcL Eosinophils # (0.0-0.6) K/mcL Basophils # (0.0-0.2) K/mcL Sodium (136-145) mEq/L Potassium (3.5-5.1) mEq/L Chloride (98-107) mEq/L Carbon Dioxide (23-29) mEq/L BUN (6-20) mg/dL Creatinine (0.60-1.20) mg/dL Est GFR ( Amer) (> 60) Est GFR (Non-Af Amer) (> 60) BUN/Creatinine Ratio (6-26) Glucose (70-105) mg/dL Calculated Osmolality (280-300) Calcium (8.6-10.3) mg/dL Urine Color (Yellow) Urine Clarity (Clear) Urine pH (5.0-8.0) pH Units Ur Specific Assonet (1.010-1.025) Urine Protein (Neg-Trace) mg/dL Urine Glucose (UA) (Normal) mg/dL Urine Ketones (Negative) mg/dL Urine Blood (Negative) Urine Nitrite (Negative) Urine Bilirubin (Negative) Urine Urobilinogen (Normal) mg/dL Ur Leukocyte Esterase (Negative) Urine Microscopic RBC (0-3) per hpf Urine Microscopic WBC (0-3) per hpf Ur Squamous Epith Cells (None-Few) per lpf Urine Bacteria (None-Few) per hpf Hyaline Casts (None-Few) per lpf Urine Test Negative (Negative) Urine Opiates Screen Negative (Avjzkb=999) ng/mL Ur Barbiturates Screen Negative (Vzsrgl=947) ng/mL Phenytoin > 40.0 H* (10.0-20.0) mcg/mL Ur Phencyclidine Scrn Negative (Cutoff=25) ng/mL Ur Amphetamines Screen Negative (Kcsyqw=2951) ng/mL U Benzodiazepines Scrn Negative (Iccvsp=722) ng/mL Urine Cocaine Screen Negative (Cutoff= 300) ng/mL U Marijuana (THC) Screen Negative (Cutoff = 50) ng/mL Ur Drug Screen Interp See Below 03/19/18 Range/Units 18:18 WBC 6.3 (4.3-11.1) K/mcL RBC 4.10 (3.82-4.97) M/mcL Hgb 10.6 L (11.5-15.4) g/dL Hct 33.3 L (35.3-44.9) % MCV 81.2 L (83.0-100.0) fL MCH 25.9 L (28.0-33.3) pg MCHC 31.8 (31.6-35.5) g/dL RDW 14.9 H (11.5-14.5) % Plt Count 352 (140-400) K/mcL MPV 8.3 L (9.4-12.4) fL Immature Gran % 0.3 (0-4) % Seg Neutrophils % 39.7 % Lymphocytes % 50.1 % Monocytes % 7.2 % Eosinophils % 2.4 % Basophils % 0.3 % Neutrophils # 2.5 (1.6-8.9) K/mcL Lymphocytes # 3.2 (0.6-4.6) K/mcL Monocytes # 0.5 (0.0-1.3) K/mcL Eosinophils # 0.2 (0.0-0.6) K/mcL Basophils # 0.0 (0.0-0.2) K/mcL Sodium (136-145) mEq/L Potassium (3.5-5.1) mEq/L Chloride (98-107) mEq/L Carbon Dioxide (23-29) mEq/L BUN (6-20) mg/dL Creatinine (0.60-1.20) mg/dL Est GFR ( Amer) (> 60) Est GFR (Non-Af Amer) (> 60) BUN/Creatinine Ratio (6-26) Glucose (70-105) mg/dL Calculated Osmolality (280-300) Calcium (8.6-10.3) mg/dL Urine Color (Yellow) Urine Clarity (Clear) Urine pH (5.0-8.0) pH Units Ur Specific [place] (1.010-1.025) Urine Protein (Neg-Trace) mg/dL Urine Glucose (UA) (Normal) mg/dL Urine Ketones (Negative) mg/dL Urine Blood (Negative) Urine Nitrite (Negative) Urine Bilirubin (Negative) Urine Urobilinogen (Normal) mg/dL Ur Leukocyte Esterase (Negative) Urine Microscopic RBC (0-3) per hpf Urine Microscopic WBC (0-3) per hpf Ur Squamous Epith Cells (None-Few) per lpf Urine Bacteria (None-Few) per hpf Hyaline Casts (None-Few) per lpf Urine Test (Negative) Urine Opiates Screen (Vogmfz=873) ng/mL Ur Barbiturates Screen (Xjlgnq=167) ng/mL Phenytoin (10.0-20.0) mcg/mL Ur Phencyclidine Scrn (Cutoff=25) ng/mL Ur Amphetamines Screen (Apuzhg=9238) ng/mL U Benzodiazepines Scrn (Tovpgr=233) ng/mL Urine Cocaine Screen (Cutoff= 300) ng/mL U Marijuana (THC) Screen (Cutoff = 50) ng/mL Ur Drug Screen Interp - Radiology Data Radiology results reviewed: Yes I reviewed the patient's radiology results. - EKG Data EKG attestation: Yes I reviewed and interpreted this EKG. EKG results narrative: 03/19/18 14:17. Normal sinus rhythm. Heart rate 73. NE 147. QRS 83. QTC 4- 31. Normal axis. No acute ST elevation or depression. Attestation Statement - Attestation Attestation: I, Iban Muro, examined this patient and my medical decision-making was reviewed with the RESOURCE MANAGEMENT PLANNER/PA/Advanced Practice Nurse/Resident Physician. I agree with the documented findings, disposition and treatment plan as described except to the extent set forth below. 32-year-old female presents emergency Department with concerns of possible seizure. Patient states she takes Keppra as well as phenytoin for treatment of her seizures. Patient has noticed that she had concerns of lightheadedness and intermittent seizures. Patient states she was admitted to the ICU at [place] 1 week ago however we talked with Sundeep who states that the last time she was admitted there was more than one month ago. Patient had 2 episodes of what she described as her seizures in the emergency department. These episodes both appeared to be nonepileptic in that she let her head or fall to the side and fluttered her eyes. Within 20 seconds she returned to her baseline and had no postictal state area and she is not incontinent of urine or stool. I laboratory testing the patient has significantly elevated phenytoin level. Her lightheadedness could be secondary to the medication. She does not follow a neurologist and her medications are prescribed by her primary care provider. Patient will be admitted to the hospital for further care and evaluation
[2018-03-19 14:10] LABS: Basophils % 0.2 %; Eosinophils # 0.1 K/mcL (0.0-0.6); Hemoglobin 11.4 g/dL (11.5-15.4); Immature Granulocytes % 0.2 % (0-4); Lymphocytes # 2.7 K/mcL (0.6-4.6); Lymphocytes % 45.2 %; Mean Corpuscular HGB Conc 32.6 g/dL (31.6-35.5); Mean Corpuscular Hemoglobin 26.3 pg (28.0-33.3); Mean Corpuscular Volume 80.6 fL (83.0-100.0); Mean Platelet Volume 8.5 fL (9.4-12.4); Monocytes # 0.5 K/mcL (0.0-1.3); Monocytes % 8.2 %; Neutrophils # 2.6 K/mcL (1.6-8.9); Platelet Count 389 K/mcL (140-400); Red Blood Count 4.34 M/mcL (3.82-4.97); Red Cell Distribution Width 14.9 % (11.5-14.5); Segmented Neutrophils % 44.2 %
[2018-03-19 14:30] LABS: BUN/Creatinine Ratio 13 (6-26); Blood Urea Nitrogen 8 mg/dL (6-20); Calcium 8.8 mg/dL (8.6-10.3); Carbon Dioxide 26 mEq/L (23-29); Chloride 105 mEq/L (98-107); Glucose 95 mg/dL (70-105); Osmolality,Calculated 282 (280-300); Potassium 3.5 mEq/L (3.5-5.1); Sodium 137 mEq/L (136-145); eGFR For Non-African Americans > 60 (> 60)
[2018-03-19 15:38] LABS: Bilirubin,Urine Small (Negative); Blood,Urine Negative (Negative); Clarity,Urine Clear (Clear); Color,Urine Yellow (Yellow); Glucose,Urine (UA) Normal (Normal); Ketones,Urine 15 mg/dL (Negative); Leukocyte Esterase,Urine Moderate (Negative); Nitrite,Urine Negative (Negative); Protein,Urine Negative (Neg-Trace); Specific Gravity,Urine 1.022 (1.010-1.025); Urobilinogen,Urine Normal (Normal)
[2018-03-19 15:51] LABS: Bacteria,Urine None Seen per hpf (None-Few); Hyaline Casts,Urine None Seen per lpf (None-Few); RBC,Urine 0-3 per hpf (0-3); Squamous Epithelial Cell,Urine Many per lpf (None-Few)
[2018-03-19 16:41] LABS: Phenytoin (Dilantin) > 40.0 mcg/mL (10.0-20.0)
[2018-03-19] MEDS ORDERED: 0.9 % Sodium Chloride 1,000 ML IVC ONE (16:59)
[2018-03-19] MEDS ORDERED: Naloxone 0.4 MG/ML INJ IVP PRN (17:53)
[2018-03-19 18:07] LABS: Amphetamine Screen,Urine Negative ng/mL (Cutoff=1000); Barbiturate Screen,Urine Negative ng/mL (Cutoff=200); Benzodiazepines Screen,Urine Negative ng/mL (Cutoff=200); Cannabinoid Screen,Urine Negative ng/mL (Cutoff = 50); Cocaine Screen,Urine Negative ng/mL (Cutoff= 300); Opiate Screen,Urine Negative ng/mL (Cutoff=300); Phencyclidine Screen,Urine Negative ng/mL (Cutoff=25)
--- NOTE | 2018-03-19 18:20 | Internal Med History&Physical ---
Date of Encounter: 03/19/18 Time of Encounter: 18:04 Internal Medicine - H&P: HPI Chief complaint: seizure Admitted From: Emergency Dept Plans for Post Hospital Care: Home History of present illness: Ms. Sullivan is a 32 year old female pas medical hx of seizure, migraine . Presented to the ED via EMS after experiencing a seizure at home. Currently the patient is groggy and states multiple times that she doesn't know when asked questions. Most of information is gleened for medicla records as well as nursing staff. According to records she experiences a seizure once every couple of months. When she has these seizures, she states that she loses consciousness for a few seconds and comes to her she occasionally has tonic-clonic activity of her extremities. She is on dilantin and Keppra and states she has been compliant with medications. She states that she see [facility] neurology in [place]. She reports that she was recently admitted to [facility] approx a week ago dt "bad seizures" She denies any drug or ETOH use however a review of records does show that she was here approx a year ago secondary to dilantin drug overdose. She was positive for cocaine at that time. CT of head negative EKG NSR with no ST T wave abnormalities rest of lab work unremarkable . SHe will be admitted for further workup and evaluation Past Med Surg Social Fam HX - Past Medical History Medical history: migraine, seizures, other Additional medical history: epilepsy Psychiatric history: no psych history - Past Surgical History Surgical History: cholecystectomy, other Additional surgical history: insertion of vagal stimulator, sinus surgery - Social History Smoking Status: Current every day smoker Smokeless Tobacco Status: No Alcohol use: none Drug use: none - Family History Mother Living Status: Still Living Hx Family Respiratory Disorders: Yes (Lung CA) Hx Family Neurologic Disorders: Yes (SEIZURES) Father Hx Family Cardiac Disorders: Yes Internal Medicine - H&P: Meds Phenytoin [Dilantin] 300 mg PO Q12HR 01/01/17 [History] LevETIRAcetam [Keppra] 1,000 mg PO BID 03/18/17 [History] clonazePAM [Klonopin] 2 mg PO BID 03/18/17 [History] Nitrofurantoin Monohyd/M-Cryst [Macrobid 100 mg Capsule] 100 mg PO BID #14 capsule 09/25/17 [Rx] LevETIRAcetam [Keppra] 1,000 mg PO BID 10 Days #40 tablet 02/03/18 [Rx] Phenytoin [Dilantin] 300 mg PO Q12HR 10 Days #20 tab.chew 02/03/18 [Rx] LevETIRAcetam [Keppra] 1,000 mg PO BID #60 tablet 02/08/18 [Rx] Nitrofurantoin Monohyd/M-Cryst [Macrobid 100 mg Capsule] 100 mg PO BID 7 Days capsule 02/08/18 [Rx] Phenytoin [Dilantin] 300 mg PO Q12HR #60 tab.chew 02/08/18 [Rx] LevETIRAcetam [Keppra] 1,000 mg PO BID #20 tablet 02/19/18 [Rx] Phenytoin [Dilantin] 300 mg PO Q12HR #10 tab.chew 02/19/18 [Rx] 3 Allergy/AdvReac Type Severity Reaction Status Date / Time No Known Allergies Allergy Verified 01/23/17 11:57 All Systems PM: A 10-system review of systems was performed and is negative for pertinent findings except as documented above in the HPI. - Constitutional Constitutional: no chills, no fever(s), no night sweats - EENT Eyes: no change in vision, no discharge, no pain, no photophobia Nose, mouth and throat: no dysphagia, no nasal discharge, no neck pain, no sore throat - Cardiovascular Cardiovascular ROS IM: no chest pain, no diaphoresis, no dyspnea, no lightheadedness, no palpitations, no syncope - Respiratory Respiratory: no cough, no dyspnea, no wheezing, no excessive phlegm production - Gastrointestinal Gastrointestinal: no abdominal pain, no diarrhea, no hematemesis, no hematochezia, no melena, no nausea, no vomiting - Genitourinary Genitourinary: no change in urinary stream, no dysuria, no flank pain, no hematuria - Musculoskeletal Musculoskeletal ROS IM: no numbness, no tingling - Integumentary Integumentary IM: no rash, no unusual bruising - Neurological Neurological ROS: convulsions, no confusion, no focal weakness, no numbness, no tingling, no tremor(s) - Constitutional Vitals: Temp Pulse Resp BP Pulse Ox 99.4 F 70 14 120/80 100 03/19/18 13:27 03/19/18 17:13 03/19/18 17:13 03/19/18 17:13 03/19/18 17:13 General appearance: Present: A&O X 3 Exam: groggy - Head Head exam: Present: atraumatic, normocephalic - Eye Eye exam: Present: PERRL, conjuntiva pink, sclera anicteric Pupils: Present: PERRL - Neck Neck exam general surgery: Present: supple, trachea midline. Absent: lymphadenopathy - Respiratory Respiratory exam: Present: CTAB. Absent: accessory muscle use, rales, rhonchi, wheezes - Cardiovascular Cardiovascular exam: Present: RRR, +S1, +S2. Absent: diastolic murmur, gallop, rubs, systolic murmur - GI/Abdominal GI/Abdominal exam: Present: normal bowel sounds, soft, no peritoneal signs. Absent: distended, tenderness - Extremities Exam Extremities exam: Present: warm, radial pulses palpable and symmetrical. Absent : calf tenderness, cyanotic, pedal edema - Neurological Exam Neurological exam: Present: CN II-XII intact, oriented X3, no focal deficits, strengths equal and symetr throughout. Absent: pronater drift, facial droop, speech deficit Additional comments: some facial twitching - Skin Skin exam: Present: dry, intact Internal Med - H&P Results - Labs CBC & Chem 7: 03/19/18 13:53 03/19/18 13:53 - Diagnostic Studies Other Images Additional comments: Head CT 03/19/18 13:43 IMPRESSION: No acute intracranial abnormality. D/ / Ling Geronimo Cha, MD / Ling Geronimo Cha, MD Interpreting Provider: Ling Geronimo Cha, MD - Assessment and plan (1) Seizure disorder Current Visit: No Status: Chronic Assessment and plan: 1 Hx of seizure - states has approx 1 seizure every couple of months. she is followed by [facility] neurologist in [place] - CT of head negative cont with seizure precautions neur checks consult neurology hold dilantin since level >40 check Keppra level check tox screen Obtain records from [facility]- recent hospitalization for seizures (2) Elevated phenytoin level Current Visit: Yes Status: Acute Assessment and plan: 1 phenytoin level greater > 40 She is on 300 mg dilantin po every 12 hrs . SHe states that she has been compliant with medication and this was unintentional -cont IVF Cont cardiac monitoring - no bradycardia noted monitor phenytoin level Zofran as needed for nausea - Time Spent With Patient Total time spent is greater than 50% in coordination of care (as documented) at patient's floor/unit and/or counseling patient:
[2018-03-19 18:28] LABS: Basophils % 0.3 %; Eosinophils # 0.2 K/mcL (0.0-0.6); Eosinophils % 2.4 %; Hematocrit 33.3 % (35.3-44.9); Hemoglobin 10.6 g/dL (11.5-15.4); Immature Granulocytes % 0.3 % (0-4); Lymphocytes # 3.2 K/mcL (0.6-4.6); Lymphocytes % 50.1 %; Mean Corpuscular HGB Conc 31.8 g/dL (31.6-35.5); Mean Corpuscular Hemoglobin 25.9 pg (28.0-33.3); Mean Corpuscular Volume 81.2 fL (83.0-100.0); Mean Platelet Volume 8.3 fL (9.4-12.4); Monocytes # 0.5 K/mcL (0.0-1.3); Monocytes % 7.2 %; Neutrophils # 2.5 K/mcL (1.6-8.9); Platelet Count 352 K/mcL (140-400); Red Cell Distribution Width 14.9 % (11.5-14.5); Segmented Neutrophils % 39.7 %
[2018-03-19] MEDS: 0.9 % Sodium Chloride 1,000 ML IVC SCH (19:25)
[2018-03-20 02:07] LABS: BUN/Creatinine Ratio 14 (6-26); Blood Urea Nitrogen 10 mg/dL (6-20); Calcium 8.1 mg/dL (8.6-10.3); Carbon Dioxide 28 mEq/L (23-29); Chloride 108 mEq/L (98-107); Glucose 234 mg/dL (70-105); Magnesium 1.9 mg/dL (1.6-2.6); Osmolality,Calculated 295 (280-300); Potassium 3.5 mEq/L (3.5-5.1); Sodium 139 mEq/L (136-145); eGFR For Non-African Americans > 60 (> 60)
[2018-03-20] MEDS: 0.9 % Sodium Chloride 1,000 ML IVC SCH (04:24)
--- NOTE | 2018-03-20 09:14 | Internal Med Progress Note ---
Hospitalist Progress Note - Encounter Date of Encounter: 03/20/18 Time of Encounter: 09:14 - Subjective Interval History: Patient seen and examined at bedside. Complains of weakness Denies any N/V tolerating oral intake. Discussed treatment plan with patient verbalized understanding - Exam Vitals: Temp Pulse Resp BP Pulse Ox 98.3 F 73 16 104/70 99 03/20/18 07:09 03/20/18 07:09 03/20/18 07:09 03/20/18 07:09 03/20/18 07:09 Exam: Head Head exam: Present: atraumatic, normocephalic - Eye Eye exam: Present: PERRL, conjuntiva pink, sclera anicteric Pupils: Present: PERRL - Neck Neck exam general surgery: Present: supple, trachea midline. Absent: lymphadenopathy - Respiratory Respiratory exam: Present: CTAB. Absent: accessory muscle use, rales, rhonchi, wheezes - Cardiovascular Cardiovascular exam: Present: RRR, +S1, +S2. Absent: diastolic murmur, gallop, rubs, systolic murmur - GI/Abdominal GI/Abdominal exam: Present: normal bowel sounds, soft, no peritoneal signs. Absent: distended, tenderness - Extremities Exam Extremities exam: Present: warm, radial pulses palpable and symmetrical. Absent : calf tenderness, cyanotic, pedal edema - Neurological Exam Neurological exam: Present: CN II-XII intact, oriented X3, no focal deficits, strengths equal and symetr throughout. Absent: pronater drift, facial droop, speech deficit Additional comments: - Assessment and Plan (1) Seizure disorder Current Visit: No Status: Chronic Assessment and Plan: 1 03/19/2018Hx of seizure - states has approx 1 seizure every couple of months. she is followed by Héctor Bill neurologist in [place] - CT of head negative cont with seizure precautions neur checks consult neurology hold dilantin since level >40 check Keppra level check tox screen Obtain records from [facility]- recent hospitalization for seizures 03/20/2018 Recheck of dilantin does show elevation cont to hold for now cont with seizure precautions neuro checks consult neurology appreciate recommendations check Keppra level - awaiting results check tox screen Obtain records from [facility]- recent hospitalization for seizures- awaiting results (2) Elevated phenytoin level Current Visit: Yes Status: Acute Assessment and Plan: 03/19 phenytoin level greater > 40 She is on 300 mg dilantin po every 12 hrs . SHe states that she has been compliant with medication and this was unintentional -cont IVF Cont cardiac monitoring - no bradycardia noted monitor phenytoin level Zofran as needed for nausea 03/20 con to be elevated at 33 cont with fluids and recheck Cont cardiac monitoring - no bradycardia noted monitor phenytoin level Zofran as needed for nausea - Time Spent with Patient Total time spent is greater than 50% in coordination of care (as documented) at patient's floor/unit and/or counseling patient: Internal Medicine: Result - Labs CBC & Chem 7: 03/19/18 18:18 03/20/18 00:54 Labs: Short CBC 03/19/18 Range/Units 18:18 WBC 6.3 (4.3-11.1) K/mcL Hgb 10.6 L (11.5-15.4) g/dL Hct 33.3 L (35.3-44.9) % Plt Count 352 (140-400) K/mcL Neutrophils # 2.5 (1.6-8.9) K/mcL BMP 03/20/18 00:54 Sodium 139 Potassium 3.5 Chloride 108 H Carbon Dioxide 28 BUN 10 Creatinine 0.71 Glucose 234 H Calcium 8.1 L Consult Discharge Plan - Plan Referrals: Héctor Bill MD [Primary Care Provider] -
--- NOTE | 2018-03-20 16:43 | Neurology - Consult Note ---
Date of Encounter: 03/20/18 Time of Encounter: 16:38 Assessment and Plan (1) Spell of altered consciousness Current Visit: Yes Status: Acute I am not completely certain whether not this patient truly has epilepsy. She gives me a history of having seizures diagnosed since the age of 4 or 6. She also states that she was hospitalized at [facility] some time ago for "bad seizures". However she gives vague answers to her specific questions that I would expect she would be able to provide much more input and insight into. She has not seen her primary neurologist at the [facility] in at least a year. Also not certain why she would have been toxic on her phenytoin and less she was taking some other concurrent medication that might have affected the metabolism of the phenytoin. She states that she is also taking levetiracetam. We will simply hold her phenytoin for now and check daily levels until it falls within the therapeutic range. Most adults can maintain therapeutic study stated 300 mg once daily. I also recommend restarting her levetiracetam at 500 mg twice a day. I will obtain an MRI scan of the brain with and without contrast as well as an EEG. I anticipate her returning to her primary care provider upon discharge. History of Present Illness HPI: The chart was reviewed, the patient was seen and examined. Ms. Sullivan is a 32 year old female who was seen at the request of the hospitalist secondary to complaints of seizures. Patient was a very difficult historian who gives very brief answers to pertinent questions. She informs me that she had seizures since the age of 4 or 6. However she cannot tell me the name of whatever specialist that she is seen during that time. I would expect that she truly had epilepsy which she would have been under the care of a child neurologist and then later an adult neurologist. In regard she informs me that she has seizures about every other week. She cannot tell me exactly what happens during her seizures. She states that she has bitten her tongue and lost bladder continence in the past. She states that the longest she has been seizure-free for 1-2 years. She informed me that her neurologist is Héctor Bill. She states that he is a provider at the [facility]. However she informs me that she has not seen him in a year yet she has been having seizures every other week. She could not give a good explanation as to why she does not see him more frequently. Her phenytoin level was supratherapeutic upon admission. She states that she also takes levetiracetam I am under the direction of Dr. Bill. Levetiracetam level is pending. A CT scan of the brain obtained at the time of admission was negative. CBC does reveal iron deficiency anemia. Glucose was elevated greater than 200 upon admission. Her phenytoin is being held. Urine tox screen was negative Past Med Surg Social Fam HX - Past Medical History Medical history: migraine, seizures, other Additional medical history: epilepsy Psychiatric history: no psych history - Past Surgical History Surgical History: cholecystectomy, other Additional surgical history: insertion of vagal stimulator, sinus surgery - Social History Smoking Status: Current every day smoker Smokeless Tobacco Status: No Alcohol use: none Drug use: none - Family History Mother History Unknown: Yes Living Status: Still Living Hx Family Respiratory Disorders: Yes (Lung CA) Hx Family Neurologic Disorders: Yes (SEIZURES) Father History Unknown: Yes Living Status: Still Living Hx Family Cardiac Disorders: Yes Medications and Allergies Phenytoin [Dilantin] 300 mg PO Q12HR 01/01/17 [History] LevETIRAcetam [Keppra] 1,000 mg PO BID 03/18/17 [History] 3 Allergy/AdvReac Type Severity Reaction Status Date / Time No Known Allergies Allergy Verified 01/23/17 11:57 All Systems: The remainder of the systems were reviewed and are negative Review of Systems: The balance of the systems review is negative. Physical Examination - Vital Signs Vital Signs: Initial Vital Signs Temp Pulse Resp BP Pulse Ox 99.4 F 79 16 125/79 99 03/19/18 13:27 03/19/18 13:27 03/19/18 13:27 03/19/18 13:27 03/19/18 13:27 - Neurologic Detailed motor examination: full strength in all major muscle groups Motor examination - right side: 5/5: deltoids, biceps, triceps, wrist flexion, wrist extension, import clerk, hip flexors, tibialis Anterior, quadriceps, toe extension (EHL), plantarflexion Motor examination - left side: 5/5: deltoids, biceps, triceps, wrist flexion, wrist extension, hip flexors, import clerk, quadriceps, tibialis Anterior, toe extension (EHL), plantarflexion Mental Status Examination: awake (Somewhat groggy, yawning excessively during the entirety of my assessment.), oriented to person, oriented to place, oriented to time, follows commands appropriately, answers questions appropriately, no agnosia, no aphasia, no aproxia Cranial nerve examination: PERRL, EOMI, visual ramirez intact, corneal reflexes brisk symmetrically, sensory to face intact, mastication intact, no facial asymmetry is present, no dysarthria, hearing is intact symmetrically, soft palate elevates bilaterally upon phonation, gag reflex intact, flexes SCM and trapezius muscles symmetrically with full power, tongue protrudes midline, no atrophy or facial fasiculations present Cerebellar examination: no dysmetria, performs finger to nose and heel to green symmetrically without ataxia, no gait ataxia, no truncal ataxia, no difficulty with rapid alternating movements Results - Laboratory Findings CBC and BMP: 03/19/18 18:18 03/20/18 00:54 Abnormal lab findings: Abnormal lab results Hgb 10.6 g/dL (11.5-15.4) L 03/19/18 18:18 Hct 33.3 % (35.3-44.9) L 03/19/18 18:18 MCV 81.2 fL (83.0-100.0) L 03/19/18 18:18 MCH 25.9 pg (28.0-33.3) L 03/19/18 18:18 RDW 14.9 % (11.5-14.5) H 03/19/18 18:18 MPV 8.3 fL (9.4-12.4) L 03/19/18 18:18 Chloride 108 mEq/L (98-107) H 03/20/18 00:54 Glucose 234 mg/dL (70-105) H 03/20/18 00:54 POC Glucose 100 mg/dL (70-99) H 03/19/18 13:32 Calcium 8.1 mg/dL (8.6-10.3) L 03/20/18 00:54 Urine Ketones 15 mg/dL (Negative) H 03/19/18 15:07 Urine Bilirubin Small (Negative) H 03/19/18 15:07 Ur Leukocyte Esterase Moderate (Negative) H 03/19/18 15:07 Urine Microscopic WBC 5-15 per hpf (0-3) H 03/19/18 15:07 Ur Squamous Epith Cells Many per lpf (None-Few) H 03/19/18 15:07 Phenytoin 33.0 mcg/mL (10.0-20.0) H 03/20/18 00:54 Consult Discharge Plan - Plan Referrals: Héctor Bill MD [Primary Care Provider] -
[2018-03-20] MEDS: levETIRAcetam 250 MG TABLET PO SCH (17:19)
[2018-03-21 05:37] LABS: Basophils % 0.4 %; Eosinophils # 0.2 K/mcL (0.0-0.6); Eosinophils % 2.3 %; Hematocrit 33.5 % (35.3-44.9); Hemoglobin 10.6 g/dL (11.5-15.4); Immature Granulocytes % 0.3 % (0-4); Lymphocytes # 2.9 K/mcL (0.6-4.6); Lymphocytes % 39.5 %; Mean Corpuscular HGB Conc 31.6 g/dL (31.6-35.5); Mean Corpuscular Hemoglobin 25.8 pg (28.0-33.3); Mean Corpuscular Volume 81.5 fL (83.0-100.0); Mean Platelet Volume 9.2 fL (9.4-12.4); Monocytes # 0.6 K/mcL (0.0-1.3); Monocytes % 7.5 %; Neutrophils # 3.6 K/mcL (1.6-8.9); Platelet Count 396 K/mcL (140-400); Red Blood Count 4.11 M/mcL (3.82-4.97); Red Cell Distribution Width 15.3 % (11.5-14.5)
[2018-03-21] MEDS: levETIRAcetam 250 MG TABLET PO SCH ×2 (05:51→17:52)
[2018-03-21 05:58] LABS: BUN/Creatinine Ratio 15 (6-26); Blood Urea Nitrogen 10 mg/dL (6-20); Calcium 8.4 mg/dL (8.6-10.3); Carbon Dioxide 26 mEq/L (23-29); Chloride 106 mEq/L (98-107); Glucose 95 mg/dL (70-105); Osmolality,Calculated 287 (280-300); Phenytoin (Dilantin) 31.6 mcg/mL (10.0-20.0); Potassium 3.8 mEq/L (3.5-5.1); Sodium 139 mEq/L (136-145); eGFR For Non-African Americans > 60 (> 60)
[2018-03-21] MEDS ORDERED: Gadolinium Contrast Agent (WT Based) IV PRN (10:17)
--- NOTE | 2018-03-21 11:51 | Internal Med Progress Note ---
Hospitalist Progress Note - Encounter Date of Encounter: 03/21/18 Time of Encounter: 11:49 - Subjective Interval History: Seen and examined at bedside today, no acute changes overnight. Reports that weakness has improved denies any return of seizure-like events. Discussed plan of care and the patient verbalized understanding - Exam Vitals: Temp Pulse Resp BP Pulse Ox 98.1 F 59 19 128/78 99 03/21/18 11:44 03/21/18 11:44 03/21/18 11:44 03/21/18 11:44 03/21/18 11:44 Exam: PHYSICAL EXAMINATION: GENERAL: The patient is a well-developed, well-nourished, healthy female in no apparent distress. She is alert and oriented x3. HEENT: Head is normocephalic and atraumatic. Extraocular muscles are intact. Pupils are equal, round, and reactive to light and accommodation. NECK: Supple. No carotid bruits. No lymphadenopathy or thyromegaly. LUNGS: Clear to auscultation AP and L. HEART: Regular rate and rhythm, S1, S2 without murmur rubs or gallops. ABDOMEN: Soft, nontender, and nondistended. Positive bowel sounds. No hepatosplenomegaly was noted. EXTREMITIES: Without any cyanosis, clubbing, rash, lesions or edema. NEUROLOGIC: Cranial nerves II through XII are grossly intact. PSYCHIATRIC: Flat affect, but denies suicidal or homicidal ideations. - Assessment and Plan (1) Seizure disorder Current Visit: No Status: Chronic Assessment and Plan: Patient presented with complaints of increasing seizure activity states has approx 1 seizure every couple of months. she is followed by Héctor Bill neurologist in [facility], she was recently admitted and evaluated - CT head at [facility] per record negative for acute intracranial abnormality CT of head negative Neurology following while inpatient-appreciate recommendations; unclear whether or not patient truly has epilepsy; found to have elevated phenytoin levels while inpatient, etiology unclear may be taking concurrent medications continuing to elevation of phenytoin Has not had any return of seizure-like activity during the stay cont with seizure precautions neur checks consult neurology hold dilantin since level >40; resume when appropriate check Keppra level Urine tox screen negative Obtained records from [facility]- CT head without acute abnormalities , EEG without epileptiform activity (2) Elevated phenytoin level Current Visit: Yes Status: Acute Assessment and Plan: See above DVT Prophylaxis: EPCD's while in bed, increase activity, low risk for DVT - Time Spent with Patient Total time spent is greater than 50% in coordination of care (as documented) at patient's floor/unit and/or counseling patient: less than 15 minutes Plan of Care Discussed with: patient Internal Medicine: Result - Labs CBC & Chem 7: 03/21/18 04:42 03/21/18 04:42 Labs: Short CBC 03/21/18 Range/Units 04:42 WBC 7.3 (4.3-11.1) K/mcL Hgb 10.6 L (11.5-15.4) g/dL Hct 33.5 L (35.3-44.9) % Plt Count 396 (140-400) K/mcL Neutrophils # 3.6 (1.6-8.9) K/mcL BMP 03/21/18 04:42 Sodium 139 Potassium 3.8 Chloride 106 Carbon Dioxide 26 BUN 10 Creatinine 0.68 Glucose 95 Calcium 8.4 L Consult Discharge Plan - Plan Referrals: Héctor Bill MD [Primary Care Provider] -
--- NOTE | 2018-03-21 12:58 | EEG/EMG/Oth Biometrics Report ---
EEG Procedure Report Date of procedure: 03/21/18 EEG Procedure: Routine EEG Procedure Note: This is a report of a 21 channel bipolar and referential montage EEG on a patient with a prior history of seizures. A posterior dominant rhythm of 8-9 Hz moderate to low voltage alpha frequencies identified symmetrically in the posterior head regions. This rhythm however is not well sustained and is intermixed with some beta as well as some theta frequencies. Hyperventilation is performed and one episode of generalized spike and wave is identified at the very end of hyperventilation. Periods of drowsiness and stage II sleep identified as reference by dropout of posterior dominant rhythm and emergence of vertex activity, K complexes, and sleep spindles. During sleep and drowsiness however several generalized discharges of spike and wave activity are apparent. Most of these last 1-2 seconds, one burst lasted at least 4-5 seconds. No movement however was identified by the technicians. Not photic scintillations performed and does not produce a driving response. The EKG rhythm strip reveals low voltage sinus rhythm at 72 bpm. Impressions: This EEG recording is abnormal reveals several generalized bursts of spike and wave activity occurring during drowsiness and sleep. 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 Please correlate clinically.
--- NOTE | 2018-03-21 18:05 | Neurology Progress Note ---
Date of Encounter: 03/21/18 Time of Encounter: 18:02 Assessment and Plan (1) Spell of altered consciousness Current Visit: Yes Status: Acute Ultimately I suspect that the altered consciousness was in fact due to phenytoin toxicity. She is much less groggy today although she does have a strange affect. Her EEG does however reveal generalized bursts of spike and wave activity consistent with a primary generalized epilepsy. I anticipate she should be able to be discharged once her phenytoin level falls 2 within the therapeutic range. I recommend discharging her on 300 mg once daily. She should also maintain her levetiracetam 500 mg twice a day. I anticipate her following up with her current epileptologist after discharge. Subjective Interval history: Patient without any seizure activity since admission. His my suspicion that the the event that resulted in her admission was not due to seizure however likely due to Dilantin toxicity. The patient however seems a bit flighty. She really cannot give me specifics about her medications and dosages. Apparently she was switched to phenytoin chewables. Prior to that she was taking phenytoin capsules 100 mg , 4 capsules once daily dose to 400 mg a day. I am not certain whether not she was confused about how to take her medication. Her EEG was abnormal. It does show several bursts of generalized spike and wave discharges currently intermittently during sleep and drowsiness. She is not able to have an MRI due to a bladder stimulator. Objective - Constitutional Vitals: Temp Pulse Resp BP Pulse Ox 98.1 F 81 18 100/67 95 03/21/18 15:27 03/21/18 15:27 03/21/18 15:27 03/21/18 15:27 03/21/18 15:27 - Neurological Exam Motor Examination: Present: full strength in all major muscle groups Motor examination - left side: 5/5: deltoids, biceps, triceps, wrist flexion, wrist extension, hip flexors, summer internship, quadriceps, tibialis Anterior, toe extension (EHL), plantarflexion Mental Status Examination: Present: awake (Patient is less groggy today and she was yesterday, however she does have a strange affect. She also has facial tics.), oriented to person, oriented to place, oriented to time, follows commands appropriately, answers questions appropriately, no agnosia, no aphasia , no aproxia Cranial nerve examination: Present: PERRL, EOMI, visual ramirez intact, corneal reflexes brisk symmetrically, sensory to face intact, mastication intact, no facial asymmetry is present, no dysarthria, hearing is intact symmetrically, soft palate elevates bilaterally upon phonation, gag reflex intact, flexes SCM and trapezius muscles symmetrically with full power, tongue protrudes midline, no atrophy or facial fasiculations present Cerebellar examination: Present: no dysmetria, performs finger to nose and heel to green symmetrically without ataxia, no gait ataxia, no truncal ataxia, no difficulty with rapid alternating movements Results - Laboratory Findings CBC and BMP: 03/21/18 04:42 03/21/18 04:42 Abnormal lab findings: Abnormal lab results Hgb 10.6 g/dL (11.5-15.4) L 03/21/18 04:42 Hct 33.5 % (35.3-44.9) L 03/21/18 04:42 MCV 81.5 fL (83.0-100.0) L 03/21/18 04:42 MCH 25.8 pg (28.0-33.3) L 03/21/18 04:42 RDW 15.3 % (11.5-14.5) H 03/21/18 04:42 MPV 9.2 fL (9.4-12.4) L 03/21/18 04:42 POC Glucose 100 mg/dL (70-99) H 03/19/18 13:32 Calcium 8.4 mg/dL (8.6-10.3) L 03/21/18 04:42 Urine Ketones 15 mg/dL (Negative) H 03/19/18 15:07 Urine Bilirubin Small (Negative) H 03/19/18 15:07 Ur Leukocyte Esterase Moderate (Negative) H 03/19/18 15:07 Urine Microscopic WBC 5-15 per hpf (0-3) H 03/19/18 15:07 Ur Squamous Epith Cells Many per lpf (None-Few) H 03/19/18 15:07 Phenytoin 31.6 mcg/mL (10.0-20.0) H 03/21/18 04:42 Consult Discharge Plan - Plan Referrals: Héctor Bill MD [Primary Care Provider] -
[2018-03-22 04:16] LABS: Basophils % 0.3 %; Eosinophils # 0.2 K/mcL (0.0-0.6); Eosinophils % 2.5 %; Hematocrit 34.7 % (35.3-44.9); Immature Granulocytes % 0.3 % (0-4); Lymphocytes # 2.6 K/mcL (0.6-4.6); Lymphocytes % 36.4 %; Mean Corpuscular HGB Conc 31.7 g/dL (31.6-35.5); Mean Corpuscular Hemoglobin 25.9 pg (28.0-33.3); Mean Corpuscular Volume 81.6 fL (83.0-100.0); Mean Platelet Volume 9.2 fL (9.4-12.4); Monocytes # 0.5 K/mcL (0.0-1.3); Monocytes % 7.3 %; Neutrophils # 3.8 K/mcL (1.6-8.9); Platelet Count 408 K/mcL (140-400); Red Blood Count 4.25 M/mcL (3.82-4.97); Red Cell Distribution Width 15.5 % (11.5-14.5); Segmented Neutrophils % 53.2 %
[2018-03-22 04:38] LABS: BUN/Creatinine Ratio 21 (6-26); Blood Urea Nitrogen 13 mg/dL (6-20); Calcium 8.4 mg/dL (8.6-10.3); Carbon Dioxide 27 mEq/L (23-29); Chloride 105 mEq/L (98-107); Glucose 101 mg/dL (70-105); Osmolality,Calculated 288 (280-300); Potassium 3.4 mEq/L (3.5-5.1); Sodium 139 mEq/L (136-145); eGFR For Non-African Americans > 60 (> 60)
[2018-03-22 09:02] LABS: Alanine Aminotransferase 50 Units/L (7-52); Aspartate Amino Transferase 44 Units/L (13-39)
--- NOTE | 2018-03-22 11:04 | Neurology Progress Note ---
Date of Encounter: 03/22/18 Time of Encounter: 11:02 Assessment and Plan (1) Spell of altered consciousness Current Visit: Yes Status: Acute (2) Phenytoin toxicity Current Visit: Yes Status: Acute I believe that the circumstances leading to her admission due to phenytoin toxicity. She has been off the phenytoin since admission however she still has a significantly high level at 32.2. ALT and AST were both normal. I do not feel that dialysis is necessary as she is no longer exhibiting signs of altered mental status. However phenytoin is fallen out of favor particularly for long- term maintenance. I therefore increased her levetiracetam to 1000 mg twice a day. Her EEG completed yesterday was abnormal and revealed several bursts of generalized spike and wave activity consistent with primary generalized epilepsy. Ultimately I believe that it is okay to discharge her home to follow- up with her primary neurologist. She should discontinue the phenytoin indefinitely. Otherwise I will reevaluate her at your request. Qualifiers: Injury intent: accidental or unintentional Qualified Code(s): T42.0X1A - Poisoning by hydantoin derivatives, accidental (unintentional), initial encounter Subjective Interval history: The chart was reviewed, patient was seen and examined. Upon my entering the room patient is sitting up in the bed eating her breakfast. She seems to be back to her normal baseline status. She has experienced no further episodes of seizure since entering the hospital. I suspected previously I believe that the acute presentation was more than likely due to phenytoin toxicity. I will be enough however she is not been on phenytoin since admission and her phenytoin level slightly higher today than it was yesterday and 32.2. I did check ALT and AST and both were essentially normal. Objective - Constitutional Vitals: Temp Pulse Resp BP Pulse Ox 98.7 F 87 17 111/74 98 03/22/18 08:16 03/22/18 08:16 03/22/18 08:16 03/22/18 08:16 03/22/18 08:16 - Neurological Exam Motor Examination: Present: full strength in all major muscle groups Motor examination - right side: 5/5: deltoids, biceps, triceps, shirt ironer supervisor, hip flexors, tibialis Anterior, quadriceps, toe extension (EHL), plantarflexion Motor examination - left side: 5/5: deltoids, biceps, triceps, hip flexors, shirt ironer supervisor , quadriceps, tibialis Anterior, toe extension (EHL), plantarflexion Sensation intact: Present: intact Mental Status Examination: Present: awake (Patient is less groggy today and she was yesterday, however she does have a strange affect. She also has facial tics.), oriented to person, oriented to place, oriented to time, follows commands appropriately, answers questions appropriately, no agnosia, no aphasia , no aproxia Cranial nerve examination: Present: PERRL, EOMI, visual ramirez intact, corneal reflexes brisk symmetrically, sensory to face intact, mastication intact, no facial asymmetry is present, no dysarthria, hearing is intact symmetrically, soft palate elevates bilaterally upon phonation, gag reflex intact, flexes SCM and trapezius muscles symmetrically with full power, tongue protrudes midline, no atrophy or facial fasiculations present Cerebellar examination: Present: no dysmetria, performs finger to nose and heel to green symmetrically without ataxia, no gait ataxia, no truncal ataxia, no difficulty with rapid alternating movements Results - Laboratory Findings CBC and BMP: 03/22/18 03:25 03/22/18 03:25 Abnormal lab findings: Abnormal lab results Hgb 11.0 g/dL (11.5-15.4) L 03/22/18 03:25 Hct 34.7 % (35.3-44.9) L 03/22/18 03:25 MCV 81.6 fL (83.0-100.0) L 03/22/18 03:25 MCH 25.9 pg (28.0-33.3) L 03/22/18 03:25 RDW 15.5 % (11.5-14.5) H 03/22/18 03:25 Plt Count 408 K/mcL (140-400) H 03/22/18 03:25 MPV 9.2 fL (9.4-12.4) L 03/22/18 03:25 Potassium 3.4 mEq/L (3.5-5.1) L 03/22/18 03:25 POC Glucose 100 mg/dL (70-99) H 03/19/18 13:32 Calcium 8.4 mg/dL (8.6-10.3) L 03/22/18 03:25 AST 44 Units/L (13-39) H 03/22/18 08:27 Urine Ketones 15 mg/dL (Negative) H 03/19/18 15:07 Urine Bilirubin Small (Negative) H 03/19/18 15:07 Ur Leukocyte Esterase Moderate (Negative) H 03/19/18 15:07 Urine Microscopic WBC 5-15 per hpf (0-3) H 03/19/18 15:07 Ur Squamous Epith Cells Many per lpf (None-Few) H 03/19/18 15:07 Phenytoin 32.2 mcg/mL (10.0-20.0) H 03/22/18 03:25 Consult Discharge Plan - Plan Referrals: Héctor Bill MD [Primary Care Provider] -
--- NOTE | 2018-03-22 12:27 | Internal Med Progress Note ---
Hospitalist Progress Note - Encounter Date of Encounter: 03/22/18 Time of Encounter: 12:24 - Subjective Interval History: Seen and examined at bedside today, no acute changes overnight. Reports that weakness has improved denies any return of seizure-like events. - Exam Vitals: Temp Pulse Resp BP Pulse Ox 98.2 F 80 17 113/77 97 03/22/18 11:07 03/22/18 11:07 03/22/18 11:07 03/22/18 11:07 03/22/18 11:07 Exam: PHYSICAL EXAMINATION: GENERAL: The patient is a well-developed, well-nourished, healthy female in no apparent distress. She is alert and oriented x3. HEENT: Head is normocephalic and atraumatic. Extraocular muscles are intact. Pupils are equal, round, and reactive to light and accommodation. NECK: Supple. No carotid bruits. No lymphadenopathy or thyromegaly. LUNGS: Clear to auscultation AP and L. HEART: Regular rate and rhythm, S1, S2 ABDOMEN: Soft, nontender, and nondistended. Positive bowel sounds. No hepatosplenomegaly was noted. EXTREMITIES: Without any cyanosis, clubbing, rash, lesions or edema. NEUROLOGIC: Cranial nerves II through XII are grossly intact. PSYCHIATRIC: Flat affect, but denies suicidal or homicidal ideations. - Assessment and Plan (1) Seizure disorder Current Visit: No Status: Chronic (2) Elevated phenytoin level Current Visit: Yes Status: Acute DVT Prophylaxis: EPCD's while in bed, increase activity, low risk for DVT - Summary of Assessment and Plan Summary of Assessment and Plan: Patient presented with complaints of increasing seizure activity; likely due to phenytoin toxicity states has approx 1 seizure every couple of months. she is followed by Héctor Bill neurologist in [facility], she was recently admitted and evaluated CT of head negative EKG reveals a left forearm activity Neurology following while inpatient-appreciate recommendations; unclear whether or not patient truly has epilepsy; found to have elevated phenytoin levels while etiology of phenytoin elevation unclear, check AST, ALT Has not had any return of seizure-like activity during the stay cont seizure precautions neuro checks Patient reports taking phenytoin at home, but she has not had this for the last couple of weeks. It should be discontinued at discharge. She is not receiving this while inpatient at this time. Left wrist him increase to 1000 mg twice a day - Time Spent with Patient Total time spent is greater than 50% in coordination of care (as documented) at patient's floor/unit and/or counseling patient: less than 15 minutes Plan of Care Discussed with: patient Internal Medicine: Result - Labs CBC & Chem 7: 03/22/18 03:25 03/22/18 03:25 Labs: Short CBC 03/22/18 Range/Units 03:25 WBC 7.2 (4.3-11.1) K/mcL Hgb 11.0 L (11.5-15.4) g/dL Hct 34.7 L (35.3-44.9) % Plt Count 408 H (140-400) K/mcL Neutrophils # 3.8 (1.6-8.9) K/mcL BMP 03/22/18 03:25 Sodium 139 Potassium 3.4 L Chloride 105 Carbon Dioxide 27 BUN 13 Creatinine 0.62 Glucose 101 Calcium 8.4 L Liver Function 03/22/18 Range/Units 08:27 AST 44 H (13-39) Units/L ALT 50 (7-52) Units/L Consult Discharge Plan - Plan Referrals: Héctor Bill MD [Primary Care Provider] -
[2018-03-22 15:12] LABS: Phenytoin (Dilantin) Free 4.5 ug/mL (1.0-2.5); Phenytoin Dose NOT PROVIDED; Phenytoin Dose Frequency NOT PROVIDED; Phenytoin Route NOT PROVIDED
[2018-03-22] MEDS: levETIRAcetam 250 MG TABLET PO SCH (15:16)
[2018-03-22 16:24] VITALS: BP 109/70
--- NOTE | 2018-03-22 17:01 | Discharge Summary ---
- NOTES TO OUTPATIENT PROVIDER Notes to Outpatient Provider: Admitted d/t seizures and AMS, neuro imaging unremarkable, EEG show epileptiform activity. dilantin discontinued; dilantin levels found to be elevated throughout stay, etiology unclear, reports that she has not taken it in 2 weeks. Liver function normal; dilantin levels downtrending; please repeat labs. Keppra increased to 1000mg BID, education provided in d/c of dilantin and increase in Keppra; please reinforce. Please ensure f/u with neurologist in [facility] Orders not resulted at time of discharge: Pending orders 03/19/18 18:18 Keppra (Levetiracetam) Stat 03/20/18 06:00 ECG 12 lead ECG [ECG] AM 0600 03/20/18 17:43 Phenytoin Free and Total Routine Date of Encounter: 03/22/18 Time of Encounter: 16:57 - Discharge Diagnosis (1) Seizure disorder Priority: Primary Status: Chronic Assessment and Plan: Patient presented with complaints of increasing seizure activity states has approx 1 seizure every couple of months. she is followed by Héctor Bill neurologist in [facility], she was recently admitted and evaluated - CT head at [facility] per record negative for acute intracranial abnormality CT of head negative Neurology following while inpatient-appreciate recommendations; unclear whether or not patient truly has epilepsy; found to have elevated phenytoin levels while inpatient, etiology unclear may be taking concurrent medications continuing to elevation of phenytoin Has not had any return of seizure-like activity during the stay cont with seizure precautions neur checks discontinue dilantin dilantin remains elevated at 32.2 today; etiology unclear; LFT's WNL per neuro; d/c on keppra 1000mg BID; does not feel dialysis is necessary as patient has no longer exhibiting signs or symptoms of altered mental status EEG completed with several bursts of generalized spike and wave activity consistent with primary generalized epilepsy Patient to follow-up with PCP or go to discharge, please ensure patient follows up with primary neurologist in [facility]. (2) Elevated phenytoin level Priority: Secondary Status: Acute Hospital course: Ms. Sullivan is a 32 year old female with past medical history of seizures. The patient presents with altered mental status and experiencing multiple seizures at home over the last month. She was found to have elevated Dilantin levels throughout the stay, etiology remains unclear. However, neurology evaluated the patient and does not feel the patient needs dialysis during the study as mental status is improving with cessation of Dilantin. The patient on Diovan discontinued and has been informed not to resume at discharge. Additionally, she has had her Keppra dose increased to 1000 mg twice a day. I have discussed her case with neurology who believes she is safe for discharge home at this time with follow-up with primary neurologist. It should be mentioned the patient follows with Dr. Bill at [facility] which is her primary neurologist. She should follow up with Dr. Bill upon discharge. She has been informed to follow-up with PCP within 1 week of discharge. Please discuss and ensure patient has adequate follow-up with neurology upon discharge. She has had no return of seizure-like activity throughout the stay. Neuroimaging unremarkable. 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 She has been instructed to return to the ED showed symptoms return. Patient verbalizes understanding denies any further questions at this time. Discharge discussed with: patient, nurse, science consultant - Time Spent with Patient Total time spent providing and/or coordinating discharge services: Less than 30 minutes - Discharge Medications Prescriptions: LevETIRAcetam [Keppra] 1,000 mg PO BID 30 Days #60 tablet Home Medications: LevETIRAcetam [Keppra] 1,000 mg PO BID 30 Days #60 tablet 03/22/18 [Rx] Allergies/Adverse Reactions: 3 Allergy/AdvReac Type Severity Reaction Status Date / Time No Known Allergies Allergy Verified 01/23/17 11:57 Date of admission: 03/19/18 17:18 Primary care physician: Héctor Bill MD Consults: 03/19/18 17:59 Consult to Neurology [CONS] Routine Consulting Provider: Neurology [facility] Reason for Consult: seizures Time Notified: 18:01 Call Completed: Yes 03/21/18 12:28 Consult to Interpret Exam [CONS] Routine Consulting Provider: Cong Snell Consult to Interpret Exam: Interpret EEG Discharging clinician: Dale Ely Anticipated date of discharge: 03/22/18 - Constitutional Vitals: Temp Pulse Resp BP Pulse Ox 98.3 F 81 19 109/70 99 03/22/18 16:23 03/22/18 16:23 03/22/18 16:23 03/22/18 16:23 03/22/18 16:23 General appearance: Present: A&O X 3 Exam: . - Head Head exam: Present: atraumatic, normocephalic - Eye Eye exam: Present: PERRL, conjuntiva pink, sclera anicteric Pupils: Present: PERRL - Neck Neck exam general surgery: Present: supple, trachea midline. Absent: lymphadenopathy - Respiratory Respiratory exam: Present: CTAB. Absent: accessory muscle use, rales, rhonchi, wheezes - Cardiovascular Cardiovascular exam: Present: RRR, +S1, +S2. Absent: diastolic murmur, gallop, rubs, systolic murmur - GI/Abdominal GI/Abdominal exam: Present: normal bowel sounds, soft, no peritoneal signs. Absent: distended, tenderness - Extremities Exam Extremities exam: Present: warm, radial pulses palpable and symmetrical. Absent : calf tenderness, cyanotic, pedal edema - Neurological Exam Neurological exam: Present: CN II-XII intact, oriented X3, no focal deficits. Absent: pronater drift, facial droop, speech deficit - Skin Skin exam: Present: dry, intact - Patient Status Disposition: Home, Self-Care Condition: Good Functional capacity at discharge: independent ambulation Overall status at discharge: patient is progressing back to baseline - Discharge Instructions Follow Up With: Héctor Bill MD [Primary Care Provider] - - Diet and Activity Activity: increase activity as tolerated, resume usual activities as tolerated Diet: advance to your usual diet
[2018-03-22] MEDS ORDERED: levETIRAcetam 250 MG TABLET PO SCH (18:00)
--- NOTE | 2018-03-22 22:23 | Electrocardiograph Report ---
[address] [address] Test Date: 2018-03-19 Pat Name: Mariann Sullivan Department: EXAM1 Room: 3B23 Gender: F [employer]el[employer]: : 1985 Requested By: Darek Corona Order Number: [id number] Reading MD: Haleigh Caballero Measurements Intervals [place] Rate: 73 P: 71 MN: 147 QRS: 44 QRSD: 83 T: 29 QT: 391 QTc: 431 Interpretive Statements Sinus rhythm Borderline T wave abnormalities Electronically Signed On 03-22-2018 22:21:51 EDT by Haleigh Caballero
[2018-03-23 11:27] LABS: Phenytoin Percent Free 9.7 % (8.0-14.0); Phenytoin Type of Draw NOT PROVIDED
== END 2018-03-22 17:33 | disposition home or self-care (01) ==
LOC: EMEROOARM 13:22 → 3BNU 13:22
PROVIDERS: ADMIT Student in an Organized Health Care Education/Training Program; ATTEND Student in an Organized Health Care Education/Training Program

== ENCOUNTER 2020-02-24 10:26 | Observation (INO) ==
[2020-02-24] MEDS ORDERED: levETIRAcetam 1,000 MG in 0.9 % Sodium Chloride 100 ML IVPB ONE (10:36)
[2020-02-24 11:21] LABS: Basophils % 0.6 %; Eosinophils # 0.2 K/mcL (0.0-0.6); Eosinophils % 2.7 %; Hematocrit 35.7 % (35.3-44.9); Hemoglobin 10.9 g/dL (11.5-15.4); Immature Granulocytes % 0.4 % (0-4); Lymphocytes # 2.3 K/mcL (0.6-4.6); Lymphocytes % 32.3 %; Mean Corpuscular HGB Conc 30.5 g/dL (31.6-35.5); Mean Corpuscular Hemoglobin 24.8 pg (28.0-33.3); Mean Corpuscular Volume 81.3 fL (83.0-100.0); Mean Platelet Volume 9.5 fL (9.4-12.4); Monocytes # 0.6 K/mcL (0.0-1.3); Monocytes % 8.3 %; Platelet Count 434 K/mcL (140-400); Red Blood Count 4.39 M/mcL (3.82-4.97); Red Cell Distribution Width 16.7 % (11.5-14.5); Segmented Neutrophils % 55.7 %; White Blood Count 7.2 K/mcL (4.3-11.1)
[2020-02-24 11:24] LABS: INR 1.1; Prothrombin Time 12.3 Seconds (9.4-12.1)
[2020-02-24 11:26] LABS: Activated Partial Thrombo Time 28.8 Seconds (26.0-36.0)
[2020-02-24 11:38] LABS: Acetaminophen < 10 mcg/mL (10-20); Ethanol < 10 mg/dL (Less than 10); Salicylate < 2.5 mg/dL (15.0-30.0)
[2020-02-24 11:41] LABS: Alanine Aminotransferase 33 Units/L (7-52); Albumin 4.1 g/dL (3.5-5.7); Albumin/Globulin Ratio 1.3 (1.1-2.2); Alkaline Phosphatase 63 Units/L (34-104); Aspartate Amino Transferase 25 Units/L (13-39); BUN/Creatinine Ratio 9 (6-26); Bilirubin,Total 0.3 mg/dL (0.3-1.0); Blood Urea Nitrogen 7 mg/dL (6-20); Calcium 9.1 mg/dL (8.6-10.3); Carbon Dioxide 15 mEq/L (23-29); Chloride 106 mEq/L (98-107); Globulin 3.1 g/dL (2.4-3.5); Glucose 134 mg/dL (70-105); Osmolality,Calculated 284 (280-300); Potassium 3.4 mEq/L (3.5-5.1); Sodium 137 mEq/L (136-145); Total Protein 7.2 g/dL (6.4-8.9); Troponin I < 0.03 ng/mL (< 0.04); eGFR For African Americans > 60 (> 60); eGFR For Non-African Americans > 60 (> 60)
[2020-02-24 13:25] LABS: Amphetamine Screen,Urine Negative ng/mL (Cutoff=1000); Barbiturate Screen,Urine Negative ng/mL (Cutoff=200); Benzodiazepines Screen,Urine Negative ng/mL (Cutoff=200); Cannabinoid Screen,Urine Negative ng/mL (Cutoff = 50); Cocaine Screen,Urine Negative ng/mL (Cutoff= 300); Opiate Screen,Urine Negative ng/mL (Cutoff=300); Phencyclidine Screen,Urine Negative ng/mL (Cutoff=25)
[2020-02-24 16:34] LABS: Bilirubin,Urine Negative (Negative); Blood,Urine Trace (Negative); Clarity,Urine Clear (Clear); Color,Urine Light-Yellow (Yellow); Glucose,Urine (UA) Normal (Normal); Ketones,Urine Negative (Negative); Leukocyte Esterase,Urine Negative (Negative); Mucus,Urine Few per lpf (None-Few); Nitrite,Urine Negative (Negative); Protein,Urine Negative (Neg-Trace); RBC,Urine 0-3 per hpf (0-3); Specific Gravity,Urine 1.015 (1.010-1.025); Squamous Epithelial Cell,Urine Few per hpf (None-Few); Urobilinogen,Urine Normal (Normal)
[2020-02-24] MEDS ORDERED: Ondansetron 4 MG/2 ML VIAL IVP PRN (16:50)
[2020-02-24] MEDS ORDERED: Mag Hydrox/Al Hydrox/Simeth 30 ML UDC PO PRN (16:50)
[2020-02-24] MEDS ORDERED: Naloxone 0.4 MG/ML INJ IVP PRN (16:50)
[2020-02-24] MEDS ORDERED: *HR* Promethazine 25 MG/ML VIAL IVP PRN (16:50)
[2020-02-24] MEDS ORDERED: MOM Conc 10 ML UD.LIQ PO PRN (16:50)
[2020-02-24] MEDS ORDERED: *HR* LORazepam 2 MG/ML VIAL IVP PRN (17:14)
[2020-02-24] MEDS: *HR* Heparin 5,000 UNIT/ML VIAL SQ SCH (18:40)
[2020-02-24] MEDS: Acetaminophen 325 MG TABLET PO PRN (18:56)
[2020-02-24] MEDS: levETIRAcetam 250 MG TABLET PO SCH (21:23)
[2020-02-25 02:39] LABS: Basophils # 0.1 K/mcL (0.0-0.2); Basophils % 0.5 %; Eosinophils # 0.2 K/mcL (0.0-0.6); Eosinophils % 1.8 %; Hematocrit 37.2 % (35.3-44.9); Hemoglobin 11.3 g/dL (11.5-15.4); Immature Granulocytes % 0.3 % (0-4); Lymphocytes # 2.8 K/mcL (0.6-4.6); Lymphocytes % 26.8 %; Mean Corpuscular HGB Conc 30.4 g/dL (31.6-35.5); Mean Corpuscular Hemoglobin 25.2 pg (28.0-33.3); Mean Platelet Volume 9.9 fL (9.4-12.4); Monocytes # 0.7 K/mcL (0.0-1.3); Monocytes % 6.6 %; Neutrophils # 6.7 K/mcL (1.6-8.9); Platelet Count 485 K/mcL (140-400); Red Blood Count 4.48 M/mcL (3.82-4.97); Red Cell Distribution Width 16.7 % (11.5-14.5); White Blood Count 10.4 K/mcL (4.3-11.1)
[2020-02-25 02:58] LABS: Alanine Aminotransferase 28 Units/L (7-52); Albumin 4.2 g/dL (3.5-5.7); Albumin/Globulin Ratio 1.4 (1.1-2.2); Alkaline Phosphatase 66 Units/L (34-104); Aspartate Amino Transferase 21 Units/L (13-39); BUN/Creatinine Ratio 10 (6-26); Bilirubin,Total 0.3 mg/dL (0.3-1.0); Blood Urea Nitrogen 7 mg/dL (6-20); Calcium 9.1 mg/dL (8.6-10.3); Carbon Dioxide 24 mEq/L (23-29); Chloride 105 mEq/L (98-107); Glucose 86 mg/dL (70-105); Magnesium 2.3 mg/dL (1.6-2.6); Osmolality,Calculated 285 (280-300); Phosphorous 3.4 mg/dL (2.7-4.5); Potassium 3.8 mEq/L (3.5-5.1); Sodium 139 mEq/L (136-145); Total Protein 7.3 g/dL (6.4-8.9); eGFR For African Americans > 60 (> 60); eGFR For Non-African Americans > 60 (> 60)
[2020-02-25 02:59] LABS: Globulin 3.1 g/dL (2.4-3.5)
[2020-02-25] MEDS ORDERED: Ketorolac 15 MG/ML VIAL IVP ONE (04:24)
[2020-02-25] MEDS: *HR* Heparin 5,000 UNIT/ML VIAL SQ SCH ×2 (05:03→17:28)
[2020-02-25] MEDS: levETIRAcetam 250 MG TABLET PO SCH ×2 (09:15→20:31)
[2020-02-25] MEDS: Acetaminophen 325 MG TABLET PO PRN ×2 (09:16→17:37)
[2020-02-26] MEDS: *HR* Heparin 5,000 UNIT/ML VIAL SQ SCH (06:18)
[2020-02-26] MEDS: levETIRAcetam 250 MG TABLET PO SCH (07:20)
[2020-02-26 10:58] VITALS: BP 103/71
== END 2020-02-26 14:34 | disposition home or self-care (01) ==
LOC: 3BNU 10:26 → EMEROOARM 10:26 → 3BNU 17:05
PROVIDERS: ADMIT Internal Medicine; ATTEND Internal Medicine

== ENCOUNTER 2020-05-27 08:58 | Observation (INO) ==
[2020-05-27] MEDS ORDERED: 0.9 % Sodium Chloride 1,000 ML IVC ONE (09:13)
[2020-05-27 09:59] LABS: Basophils % 0.3 %; Eosinophils # 0.2 K/mcL (0.0-0.6); Eosinophils % 1.5 %; Hemoglobin 10.7 g/dL (11.5-15.4); Immature Granulocytes % 0.4 % (0-4); Lymphocytes # 2.2 K/mcL (0.6-4.6); Mean Corpuscular HGB Conc 31.5 g/dL (31.6-35.5); Mean Corpuscular Hemoglobin 25.2 pg (28.0-33.3); Mean Platelet Volume 9.6 fL (9.4-12.4); Monocytes # 0.9 K/mcL (0.0-1.3); Monocytes % 8.5 %; Neutrophils # 7.7 K/mcL (1.6-8.9); Platelet Count 475 K/mcL (140-400); Red Blood Count 4.25 M/mcL (3.82-4.97); Red Cell Distribution Width 16.2 % (11.5-14.5); Segmented Neutrophils % 69.3 %
[2020-05-27 10:07] LABS: Amphetamine Screen,Urine Positive ng/mL (Cutoff=1000); Barbiturate Screen,Urine Negative ng/mL (Cutoff=200); Benzodiazepines Screen,Urine Negative ng/mL (Cutoff=200); Cannabinoid Screen,Urine Negative ng/mL (Cutoff = 50); Cocaine Screen,Urine Negative ng/mL (Cutoff= 300); Opiate Screen,Urine Negative ng/mL (Cutoff=300); Phencyclidine Screen,Urine Negative ng/mL (Cutoff=25)
[2020-05-27 10:08] LABS: Bilirubin,Urine Negative (Negative); Blood,Urine Large (Negative); Clarity,Urine Turbid (Clear); Color,Urine Light-Orange (Yellow); Glucose,Urine (UA) Normal (Normal); Ketones,Urine Trace mg/dL (Negative); Leukocyte Esterase,Urine Moderate (Negative); Mucus,Urine Few per lpf (None-Few); Nitrite,Urine Positive (Negative); Protein,Urine 50 mg/dL (Neg-Trace); RBC,Urine TNTC per hpf (0-3); Specific Gravity,Urine 1.012 (1.010-1.025); Squamous Epithelial Cell,Urine Few per hpf (None-Few); Urobilinogen,Urine Normal (Normal); WBC,Urine 30-50 per hpf (0-3)
[2020-05-27 10:13] LABS: BUN/Creatinine Ratio 8 (6-26); Blood Urea Nitrogen 6 mg/dL (6-20); Calcium 9.2 mg/dL (8.6-10.3); Carbon Dioxide 22 mEq/L (23-29); Chloride 104 mEq/L (98-107); Ethanol < 10 mg/dL (Less than 10); Glucose 82 mg/dL (70-105); Osmolality,Calculated 285 (280-300); Potassium 3.2 mEq/L (3.5-5.1); Sodium 139 mEq/L (136-145); eGFR For African Americans > 60 (> 60); eGFR For Non-African Americans > 60 (> 60)
[2020-05-27] MEDS ORDERED: cefTRIAXone 1,000 MG in 0.9 % Sodium Chloride Mini Bag 100 ML IVPB ONE (10:41)
[2020-05-27] MEDS ORDERED: levETIRAcetam 1,000 MG in 0.9 % Sodium Chloride 100 ML IVPB ONE (11:18)
[2020-05-27] MEDS ORDERED: Naloxone 0.4 MG/ML INJ IVP PRN (17:10)
[2020-05-27] MEDS ORDERED: *HR* LORazepam 2 MG/ML VIAL IVP PRN (17:15)
[2020-05-27] MEDS: levETIRAcetam 250 MG TABLET PO SCH (21:48)
[2020-05-28 05:24] LABS: Basophils % 0.5 %; Eosinophils # 0.2 K/mcL (0.0-0.6); Eosinophils % 2.5 %; Hematocrit 31.3 % (35.3-44.9); Hemoglobin 9.4 g/dL (11.5-15.4); Immature Granulocytes % 0.2 % (0-4); Lymphocytes # 3.3 K/mcL (0.6-4.6); Lymphocytes % 40.9 %; Mean Corpuscular Hemoglobin 24.9 pg (28.0-33.3); Mean Platelet Volume 9.8 fL (9.4-12.4); Monocytes # 0.8 K/mcL (0.0-1.3); Monocytes % 9.4 %; Neutrophils # 3.7 K/mcL (1.6-8.9); Platelet Count 431 K/mcL (140-400); Red Blood Count 3.77 M/mcL (3.82-4.97); Red Cell Distribution Width 16.4 % (11.5-14.5); Segmented Neutrophils % 46.5 %
[2020-05-28 05:34] LABS: BUN/Creatinine Ratio 13 (6-26); Blood Urea Nitrogen 8 mg/dL (6-20); Calcium 8.1 mg/dL (8.6-10.3); Carbon Dioxide 22 mEq/L (23-29); Chloride 108 mEq/L (98-107); Glucose 91 mg/dL (70-105); Osmolality,Calculated 284 (280-300); Potassium 3.3 mEq/L (3.5-5.1); Sodium 138 mEq/L (136-145); eGFR For African Americans > 60 (> 60); eGFR For Non-African Americans > 60 (> 60)
[2020-05-28] MEDS: levETIRAcetam 250 MG TABLET PO SCH ×2 (08:28→21:32)
[2020-05-28] MEDS: cefTRIAXone 1,000 MG in Water for inj. (sterile) 10 ML IVP SCH (08:29)
[2020-05-29 06:21] LABS: Hematocrit 30.6 % (35.3-44.9); Hemoglobin 9.5 g/dL (11.5-15.4); Mean Corpuscular Hemoglobin 25.4 pg (28.0-33.3); Mean Corpuscular Volume 81.8 fL (83.0-100.0); Mean Platelet Volume 9.9 fL (9.4-12.4); Platelet Count 441 K/mcL (140-400); Red Blood Count 3.74 M/mcL (3.82-4.97); Red Cell Distribution Width 16.7 % (11.5-14.5); White Blood Count 10.1 K/mcL (4.3-11.1)
[2020-05-29 06:37] LABS: BUN/Creatinine Ratio 16 (6-26); Blood Urea Nitrogen 9 mg/dL (6-20); Calcium 8.6 mg/dL (8.6-10.3); Carbon Dioxide 23 mEq/L (23-29); Chloride 106 mEq/L (98-107); Glucose 91 mg/dL (70-105); Osmolality,Calculated 284 (280-300); Potassium 3.3 mEq/L (3.5-5.1); Sodium 138 mEq/L (136-145); eGFR For African Americans > 60 (> 60); eGFR For Non-African Americans > 60 (> 60)
[2020-05-29] MEDS: cefTRIAXone 1,000 MG in Water for inj. (sterile) 10 ML IVP SCH (08:13)
[2020-05-29] MEDS: levETIRAcetam 250 MG TABLET PO SCH (08:14)
[2020-05-29 10:08] VITALS: BP 107/71
== END 2020-05-29 13:52 | disposition home or self-care (01) ==
LOC: 3BNU 08:58 → EMEROOARM 08:58 → 3BNU 14:50
PROVIDERS: ADMIT Family Medicine; ATTEND Family Medicine